=== PATIENT | male | born 1950 | race Caucasian/White ===

== ENCOUNTER 2017-04-16 15:58 | Inpatient (IN) | payer MEDICARE, BC ==
[2017-04-16] MEDS ORDERED: HYDROmorphone 0.5 MG/0.5 ML Syringe IVPUSH ONE ×2 (16:43→18:40)
[2017-04-16] MEDS ORDERED: Sodium Chloride 0.9% 1,000 ML IV SCH ×2 (16:45→18:30)
[2017-04-16] MEDS ORDERED: Ondansetron 4 MG/2 ML SDV IVPUSH ONE (16:56)
[2017-04-16] MEDS ORDERED: Ondansetron 4 MG/2 ML SDV ONE (16:57)
--- NOTE | 2017-04-16 17:01 | EDM.PDOC ---
ED HPI GENERAL MEDICAL PROBLEM - General Chief Complaint: Abdominal Pain Stated Complaint: RT SIDE ABDOMINAL PAIN Time Seen by Provider: 04/16/17 16:57 Source of Information: Reports: Patient, Family History Limitations: Reports: No Limitations - History of Present Illness INITIAL COMMENTS - FREE TEXT/NARRATIVE: Pt started getting ill yesterday and had some rt flank pain and mid abdomanal pain. The pain has moved to the rt lower abdomn today. He is nauseated but he has not vomited alot. Onset: Gradual, Other ( progressed over the past 2 days. ) Duration: Hour(s):, Getting Worse Location: Reports: Abdomen Associated Symptoms: Reports: Fever/Chills, Loss of Appetite, Nausea/Vomiting, Weakness Abdominal Pain Score (Numeric/FACES): 8 - Related Data Allergies Allergy/AdvReac Type Severity Reaction Status Date / Time No Known Allergies Allergy Verified 10/13/14 06:42 Home Meds: Home Meds Albuterol [Ventolin HFA] 2 puff INH Q4H PRN 10/09/14 [History] Aspirin [Adult Low Dose Aspirin EC] 81 mg PO DAILY 10/09/14 [History] Gabapentin [Neurontin] 1,200 mg PO BEDTIME 10/09/14 [History] Losartan [Cozaar] 25 mg PO BID 10/09/14 [History] Nitroglycerin [Nitrolingual [place]] 0.4 mg SL Q5M PRN 10/09/14 [History] Torsemide 20 mg PO DAILY 10/09/14 [History] atorvaSTATin Calcium [Atorvastatin Calcium] 20 mg PO DAILY 10/09/14 [History] glipiZIDE [Glucotrol] 5 mg PO BIDAC 10/09/14 [History] Apixaban [Eliquis] 5 mg PO BID 04/16/17 [History] Isosorbide Mononitrate [Imdur] 60 mg PO DAILY 04/16/17 [History] Meloxicam [Meloxicam] 15 mg PO DAILY 04/16/17 [History] Ranitidine [Zantac] 75 mg PO DAILY 04/16/17 [History] Sennosides 8.6 mg PO ASDIRECTED 04/16/17 [History] traMADol [Ultram] 50 mg PO Q6H PRN 04/16/17 [History] Past Medical History Cardiovascular History: Reports: Heart Failure Endocrine/Metabolic History: Reports: Diabetes, Type II - Past Surgical History Cardiovascular Surgical History: Reports: Other (See Below) Other Cardiovascular Surgeries/Procedures: quadrupal bipas 2010 Musculoskeletal Surgical History: Reports: Knee Replacement, Shoulder Replacement Social & Family History - Tobacco Use Smoking Status *Q: Never Smoker Years of Tobacco use: 30 Used Tobacco, but Quit: Yes Month Tobacco Last Used: nov - Caffeine Use Caffeine Use: Reports: Coffee - Alcohol Use Days Per Week of Alcohol Use: 7 Number of Drinks Per Day: 3 Total Drinks Per Week: 21 - Recreational Drug Use Recreational Drug Use: No ED ROS GENERAL - Review of Systems Review Of Systems: See Below Constitutional: Reports: Fever, Chills, Malaise, Decreased Appetite HEENT: Reports: No Symptoms Respiratory: Reports: No Symptoms Cardiovascular: Reports: No Symptoms Endocrine: Reports: No Symptoms GI/Abdominal: Reports: Abdominal Pain, Constipation : Reports: No Symptoms Musculoskeletal: Reports: No Symptoms Skin: Reports: No Symptoms ED EXAM, GI/ABD - Physical Exam Exam: See Below Text/Narrative:: pt arrived with severe rt lower and mid abdomanal pain. He states he felt constipated and did take 2 does of MOM. Exam Limited By: No Limitations General Appearance: Alert, Severe Distress Eyes: Bilateral: Normal Appearance, EOMI Ears: Normal TMs Nose: Normal Inspection Throat/Mouth: Normal Inspection Head: Atraumatic Neck: Normal Inspection Respiratory/Chest: No Respiratory Distress, Other (pt does hurt in the rt abdoman whn he takes a deep breath. ) Cardiovascular: Regular Rate, Rhythm GI/Abdominal: Other (pt has marked lower abdomanal pain He is guarded and has rebound., ) (Male) Exam: Normal Inspection Rectal (Males) Exam: Deferred Back Exam: Normal Inspection Extremities: Normal Inspection Neurological: Alert, Oriented, Normal Cognition Psychiatric: Normal Affect Course - Vital Signs Last Recorded V/S: Last Vital Signs Temp 36.8 C 04/16/17 16:40 Pulse 71 04/16/17 16:40 Resp 16 04/16/17 16:40 BP 160/86 H 04/16/17 16:40 Pulse Ox 99 04/16/17 16:40 - Orders/Labs/Meds Orders: Active Orders 24 hr Category Date Time Status EKG Documentation Completion [RC] ASDIRECTED Care 04/16/17 17:08 Active Abdomen Pelvis wo Cont [CT] Stat Exams 04/16/17 17:17 Taken Chest 1V Frontal [CR] Stat Exams 04/16/17 17:09 Taken UA W/MICROSCOPIC [URIN] Urgent Lab 04/16/17 16:42 Uncollected HYDROmorphone [Dilaudid] Med 04/16/17 18:40 Once 0.5 mg IVPUSH ONETIME ONE Sodium Chloride 0.9% [Normal Saline] 1,000 ml Med 04/16/17 16:45 Active IV ASDIRECTED Sodium Chloride 0.9% [Normal Saline] 1,000 ml Med 04/16/17 18:30 Active IV ASDIRECTED EKG 12 Lead [EK] Routine Ther 04/16/17 17:08 Ordered Medication Orders Hydromorphone HCl (Dilaudid) 0.5 mg IVPUSH ONETIME ONE Stop: 04/16/17 18:41 Sodium Chloride (Normal Saline) 1,000 mls @ 999 mls/hr IV ASDIRECTED JEFFERSON Last Admin: 04/16/17 16:55 Dose: 999 mls/hr Sodium Chloride (Normal Saline) 1,000 mls @ 999 mls/hr IV ASDIRECTED JEFFERSON Labs: Laboratory Tests 04/16/17 04/16/17 04/16/17 Range/Units 16:52 16:52 16:52 WBC 15.2 H (4.5-11.0) K/uL RBC 4.72 (4.30-5.90) M/uL Hgb 13.6 (12.0-15.0) g/dL Hct 40.4 (40.0-54.0) % MCV 86 (80-98) fL MCH 29 (27-31) pg MCHC 34 (32-36) % Plt Count 328 (150-400) K/uL Neut % (Auto) 85 H (36-66) % Lymph % (Auto) 3 L (24-44) % [place] % (Auto) 12 H (2-6) % Eos % (Auto) 0 L (2-4) % Baso % (Auto) 0 (0-1) % Sodium 132 L (140-148) mmol/L Potassium 5.0 (3.6-5.2) mmol/L Chloride 96 L (100-108) mmol/L Carbon Dioxide 26 (21-32) mmol/L Anion Gap 15.0 H (5.0-14.0) mmol/L BUN 28 H (7-18) mg/dL Creatinine 2.1 H (0.8-1.3) mg/dL Est Cr Clr Drug Dosing 41.32 mL/min Estimated GFR (MDRD) 32 L (>60) Glucose 241 H (74-106) mg/dL Calcium 9.3 (8.5-10.1) mg/dL Total Bilirubin 1.8 H (0.2-1.0) mg/dL AST 33 (15-37) U/L ALT 59 (12-78) U/L Alkaline Phosphatase 176 H (46-116) U/L C-Reactive Protein 13.47 H (0.0-0.3) mg/dL Total Protein 7.3 (6.4-8.2) g/dL Albumin 2.8 L (3.4-5.0) g/dL Globulin 4.5 H (2.3-3.5) g/dL Albumin/Globulin Ratio 0.6 L (1.2-2.2) Amylase (25-115) U/L Lipase (73-393) U/L 04/16/17 Range/Units 18:23 WBC (4.5-11.0) K/uL RBC (4.30-5.90) M/uL Hgb (12.0-15.0) g/dL Hct (40.0-54.0) % MCV (80-98) fL MCH (27-31) pg MCHC (32-36) % Plt Count (150-400) K/uL Neut % (Auto) (36-66) % Lymph % (Auto) (24-44) % [place] % (Auto) (2-6) % Eos % (Auto) (2-4) % Baso % (Auto) (0-1) % Sodium (140-148) mmol/L Potassium (3.6-5.2) mmol/L Chloride (100-108) mmol/L Carbon Dioxide (21-32) mmol/L Anion Gap (5.0-14.0) mmol/L BUN (7-18) mg/dL Creatinine (0.8-1.3) mg/dL Est Cr Clr Drug Dosing mL/min Estimated GFR (MDRD) (>60) Glucose (74-106) mg/dL Calcium (8.5-10.1) mg/dL Total Bilirubin (0.2-1.0) mg/dL AST (15-37) U/L ALT (12-78) U/L Alkaline Phosphatase (46-116) U/L C-Reactive Protein (0.0-0.3) mg/dL Total Protein (6.4-8.2) g/dL Albumin (3.4-5.0) g/dL Globulin (2.3-3.5) g/dL Albumin/Globulin Ratio (1.2-2.2) Amylase 49 (25-115) U/L Lipase 328 (73-393) U/L Meds: Medications Generic Name Dose Route Start Last Admin Trade Name Freq PRN Reason Stop Dose Admin Hydromorphone HCl 0.5 mg 04/16/17 18:40 Dilaudid IVPUSH 04/16/17 18:41 ONETIME ONE Sodium Chloride 1,000 mls @ 999 mls/hr 04/16/17 16:45 04/16/17 16:55 Normal Saline IV 999 mls/hr ASDIRECTED JEFFERSON Administration Sodium Chloride 1,000 mls @ 999 mls/hr 04/16/17 18:30 Normal Saline IV ASDIRECTED JEFFERSON Discontinued Medications Generic Name Dose Route Start Last Admin Trade Name Freq PRN Reason Stop Dose Admin Hydromorphone HCl 0.5 mg 04/16/17 16:43 04/16/17 16:53 Dilaudid IVPUSH 04/16/17 16:44 0.5 mg ONETIME ONE Administration Ondansetron HCl 4 mg 04/16/17 16:56 04/16/17 16:58 Zofran IVPUSH 04/16/17 16:57 4 mg ONETIME ONE Administration Ondansetron HCl Confirm 04/16/17 16:57 04/16/17 17:00 Zofran Administered 04/16/17 16:58 Not Given Dose 4 mg .ROUTE .STK-MED ONE - Re-Assessments/Exams Free Text/Narrative Re-Assessment/Exam: 04/16/17 18:27 cat scan showed a inflamed Gb. His lipase is normal. He has stones in the gb. His chest xray does not show a infiltrate. he has a crp of greater than 13. wbc is 15,000 04/16/17 18:41 Departure - Departure Time of Disposition: 18:42 Disposition: Admitted As Inpatient 68 Condition: fair Clinical Impression: Acute cholecystitis, Renal insufficiency, mild - Discharge Information Forms: ED Department Discharge Care Plan Goals: admit to Dr Lal, Dr Rascon to consult. - My Orders Last 24 Hours: My Active Orders 04/16/17 16:42 UA W/MICROSCOPIC [URIN] Urgent 04/16/17 16:45 Sodium Chloride 0.9% [Normal Saline] 1,000 ml IV ASDIRECTED 04/16/17 17:08 EKG Documentation Completion [RC] ASDIRECTED EKG 12 Lead [EK] Routine 04/16/17 17:09 Chest 1V Frontal [CR] Stat 04/16/17 17:17 Abdomen Pelvis wo Cont [CT] Stat 04/16/17 18:30 Sodium Chloride 0.9% [Normal Saline] 1,000 ml IV ASDIRECTED 04/16/17 18:40 HYDROmorphone [Dilaudid] 0.5 mg IVPUSH ONETIME ONE - Assessment/Plan Last 24 Hours: My Active Orders 04/16/17 16:42 UA W/MICROSCOPIC [URIN] Urgent 04/16/17 16:45 Sodium Chloride 0.9% [Normal Saline] 1,000 ml IV ASDIRECTED 04/16/17 17:08 EKG Documentation Completion [RC] ASDIRECTED EKG 12 Lead [EK] Routine 04/16/17 17:09 Chest 1V Frontal [CR] Stat 04/16/17 17:17 Abdomen Pelvis wo Cont [CT] Stat 04/16/17 18:30 Sodium Chloride 0.9% [Normal Saline] 1,000 ml IV ASDIRECTED 04/16/17 18:40 HYDROmorphone [Dilaudid] 0.5 mg IVPUSH ONETIME ONE
--- NOTE | 2017-04-16 19:25 | PCM.HP ---
H&P History of Present Illness - General Date of Service: 04/16/17 Admit Problem/Dx: Admission Diagnosis/Problem Admission Diagnosis/Problem Cholecystitis Source of Information: Patient, Family, Provider History Limitations: Reports: No Limitations - History of Present Illness Initial Comments - Free Text/Narative: Leandro presents to the emergency room today with 2 days of progressive right upper quadrant and right lower cord current abdominal pain. Pain started yesterday without inciting incident and progressed throughout the day. He had very poor sleep due to the pain. He describes this as sharp pain that radiates throughout right side of his abdomen. It was moderately severe at its worst last night. Tramadol did not help the pain. Moving around seem to make it worse. When he woke up this morning his pain was very minimal and he was able to a few crackers and a little bit of lunch. Around 2 PM the day of admission his pain became suddenly very severe. He had some associated nausea but no vomiting. No obvious fevers or chills at home. He was evaluated in the clinic and sent to the emergency room for further evaluation. He's had mild diarrhea for the past couple of days. Appetite has been decreased the past 2 weeks following his knee surgery but more so the past 2 days. Prior to his knee surgery a few weeks ago his functional status was excellent with no chest pain or shortness of breath on exertion. Workup in the emergency room revealed leukocytosis, significant CRP elevation and probable acute cholecystitis based on CT scanning. He'll be admitted for further management. Abdominal Pain Score (Numeric/FACES): 8 - Related Data Allergies/Adverse Reactions: Allergies Allergy/AdvReac Type Severity Reaction Status Date / Time No Known Allergies Allergy Verified 10/13/14 06:42 Home Medications: Home Meds Albuterol [Ventolin HFA] 2 puff INH Q4H PRN 10/09/14 [History] Aspirin [Adult Low Dose Aspirin EC] 81 mg PO DAILY 10/09/14 [History] Gabapentin [Neurontin] 1,200 mg PO BEDTIME 10/09/14 [History] Losartan [Cozaar] 25 mg PO BID 10/09/14 [History] Nitroglycerin [Nitrolingual [place]] 0.4 mg SL Q5M PRN 10/09/14 [History] Torsemide 20 mg PO DAILY 10/09/14 [History] atorvaSTATin Calcium [Atorvastatin Calcium] 20 mg PO DAILY 10/09/14 [History] glipiZIDE [Glucotrol] 5 mg PO BIDAC 10/09/14 [History] Apixaban [Eliquis] 5 mg PO BID 04/16/17 [History] Isosorbide Mononitrate [Imdur] 60 mg PO DAILY 04/16/17 [History] Meloxicam [Meloxicam] 15 mg PO DAILY 04/16/17 [History] Ranitidine [Zantac] 75 mg PO DAILY 04/16/17 [History] Sennosides 8.6 mg PO ASDIRECTED 04/16/17 [History] traMADol [Ultram] 50 mg PO Q6H PRN 04/16/17 [History] Past Medical History Cardiovascular History: Reports: Heart Failure Endocrine/Metabolic History: Reports: Diabetes, Type II - Past Surgical History Cardiovascular Surgical History: Reports: Other (See Below) Other Cardiovascular Surgeries/Procedures: quadrupal bipas 2009 Musculoskeletal Surgical History: Reports: Knee Replacement, Shoulder Replacement Social & Family History - Family History GI: Reports: Other (See Below) (A couple family members with cholecystitis and cholecystectomy) - Tobacco Use Smoking Status *Q: Never Smoker Years of Tobacco use: 30 Used Tobacco, but Quit: Yes Month Tobacco Last Used: nov - Caffeine Use Caffeine Use: Reports: Coffee - Alcohol Use Days Per Week of Alcohol Use: 7 Number of Drinks Per Day: 3 Total Drinks Per Week: 21 - Recreational Drug Use Recreational Drug Use: No H&P Review of Systems - Review of Systems: Review Of Systems: See Below Free Text/Narrative: A complete 12 point review of systems was obtained. Pertinent positives and negatives are noted in the history of present illness. All other systems were reviewed and were negative except as noted. Exam - Exam Exam: See Below - Vital Signs Vital Signs: Last Vital Signs Temp 37.1 C 04/16/17 19:13 Pulse 78 04/16/17 19:13 Resp 14 04/16/17 19:13 BP 143/62 H 04/16/17 19:13 Pulse Ox 98 04/16/17 19:13 Weight: 99.79 kg - Exam Quality Assessment: No: Supplemental Oxygen General: Alert, Oriented, Cooperative, Mild Distress HEENT: Conjunctiva Clear. No: Mucosa Moist & [place] (dry), Scleral Icterus Neck: Supple, Trachea Midline. No: Lymphadenopathy Lungs: Clear to Auscultation, Normal Respiratory Effort Cardiovascular: Regular Rate, Regular Rhythm, Systolic Murmur (Soft left lower sternal border) Abdomen: Normal Bowel Sounds (On the left side), Guarding, Tenderness ( Moderately severe tenderness right upper quadrant), Hypoactive Bowel Sounds (On the right side), Noble's Sign. No: Distention Back Exam: Normal Inspection, Full Range of Motion Extremities: Normal Inspection, Normal Pulses. No: Cyanosis, Edema Peripheral Pulses: 2+: Dorsalis Pedis (L), Dorsalis Pedis (R) Skin: Warm, Dry, Intact Neuro Extensive - Mental Status: Alert, Oriented x3, Nl Response to Commands Neuro Extensive - Motor, Sensory, Reflexes: CN II-XII Intact. No: Dysarthria, Abnormal Motor, Tremor Psychiatric: Alert, Normal Affect - Patient Data Lab Results last 24 hrs: Laboratory Results - last 24 hr 04/16/17 04/16/17 04/16/17 Range/Units 16:52 16:52 16:52 WBC 15.2 H (4.5-11.0) K/uL RBC 4.72 (4.30-5.90) M/uL Hgb 13.6 (12.0-15.0) g/dL Hct 40.4 (40.0-54.0) % MCV 86 (80-98) fL MCH 29 (27-31) pg MCHC 34 (32-36) % Plt Count 328 (150-400) K/uL Neut % (Auto) 85 H (36-66) % Lymph % (Auto) 3 L (24-44) % [place] % (Auto) 12 H (2-6) % Eos % (Auto) 0 L (2-4) % Baso % (Auto) 0 (0-1) % Sodium 132 L (140-148) mmol/L Potassium 5.0 (3.6-5.2) mmol/L Chloride 96 L (100-108) mmol/L Carbon Dioxide 26 (21-32) mmol/L Anion Gap 15.0 H (5.0-14.0) mmol/L BUN 28 H (7-18) mg/dL Creatinine 2.1 H (0.8-1.3) mg/dL Est Cr Clr Drug Dosing 41.32 mL/min Estimated GFR (MDRD) 32 L (>60) Glucose 241 H (74-106) mg/dL Calcium 9.3 (8.5-10.1) mg/dL Total Bilirubin 1.8 H (0.2-1.0) mg/dL AST 33 (15-37) U/L ALT 59 (12-78) U/L Alkaline Phosphatase 176 H (46-116) U/L C-Reactive Protein 13.47 H (0.0-0.3) mg/dL Total Protein 7.3 (6.4-8.2) g/dL Albumin 2.8 L (3.4-5.0) g/dL Globulin 4.5 H (2.3-3.5) g/dL Albumin/Globulin Ratio 0.6 L (1.2-2.2) Amylase (25-115) U/L Lipase (73-393) U/L 04/16/17 Range/Units 18:23 WBC (4.5-11.0) K/uL RBC (4.30-5.90) M/uL Hgb (12.0-15.0) g/dL Hct (40.0-54.0) % MCV (80-98) fL MCH (27-31) pg MCHC (32-36) % Plt Count (150-400) K/uL Neut % (Auto) (36-66) % Lymph % (Auto) (24-44) % [place] % (Auto) (2-6) % Eos % (Auto) (2-4) % Baso % (Auto) (0-1) % Sodium (140-148) mmol/L Potassium (3.6-5.2) mmol/L Chloride (100-108) mmol/L Carbon Dioxide (21-32) mmol/L Anion Gap (5.0-14.0) mmol/L BUN (7-18) mg/dL Creatinine (0.8-1.3) mg/dL Est Cr Clr Drug Dosing mL/min Estimated GFR (MDRD) (>60) Glucose (74-106) mg/dL Calcium (8.5-10.1) mg/dL Total Bilirubin (0.2-1.0) mg/dL AST (15-37) U/L ALT (12-78) U/L Alkaline Phosphatase (46-116) U/L C-Reactive Protein (0.0-0.3) mg/dL Total Protein (6.4-8.2) g/dL Albumin (3.4-5.0) g/dL Globulin (2.3-3.5) g/dL Albumin/Globulin Ratio (1.2-2.2) Amylase 49 (25-115) U/L Lipase 328 (73-393) U/L Result Diagrams: 04/16/17 16:52 04/16/17 16:52 Imaging Impressions last 24 hrs: CT scan of the abdomen and pelvis - images personally reviewed - there is inflammation around the gallbladder fossa. He has several calcified stones inside his gallbladder. Gallbladder wall does not appear thickened this time. EKG INTERPRETATION EKG Date: 04/16/17 Rhythm: NSR Rate (beats/min): 73 [place]: normal P-wave: present QRS: normal ST-T: normal QT: normal *Q Meaningful Use (ADM) - VTE *Q VTE Criteria *Q: VTE Pharmacological Contraindications *Q: Patient Scheduled Surgery - VTE Risk Assess *Q Each Risk Factor Represents 1 Point: None Total Score 1 Point Risk Factors: 0 Each Risk Factor Represents 2 Points: Age 60 - 74 Years, Surgery: Major, Arthroscopic and/or Laparoscopic, Greater than 60 Min Total Score 2 Point Risk Factors: 4 Each Risk Factor Represents 3 Points: None Total Score 3 Point Risk Factors: 0 Each Risk Factor Represents 5 Points: None Total Score 5 Point Risk Factors: 0 Venous Thromboembolism Risk Factor Score *Q: 4 - Stroke *Q Stroke Criteria *Q: - AMI *Q AMI Criteria *Q: - Problem List (1) Acute cholecystitis SNOMED Code(s): 54392519 ICD Code: K81.0 - ACUTE CHOLECYSTITIS Status: Acute Current Visit: Yes (2) Acute kidney injury SNOMED Code(s): 31893753 ICD Code: N17.9 - ACUTE KIDNEY FAILURE, UNSPECIFIED Status: Acute Current Visit: Yes (3) Coronary artery disease SNOMED Code(s): 60667798 ICD Code: I25.10 - ATHSCL HEART DISEASE OF [place] CORONARY ARTERY W/O ANG PCTRS Status: Chronic Current Visit: Yes Qualifiers: Coronary Disease-Associated Artery/Lesion type: [place] artery [place] vs. transplanted heart: [place] heart Associated angina: without angina Qualified Code(s): I25.10 - Atherosclerotic heart disease of [place] coronary artery without angina pectoris (4) Paroxysmal atrial fibrillation SNOMED Code(s): 739598052 ICD Code: I48.0 - PAROXYSMAL ATRIAL FIBRILLATION Status: Chronic Current Visit: Yes Problem List Initiated/Reviewed/Updated: Yes Orders Last 24hrs: Active Orders 24 hr Category Date Time Status Patient Status Manage Transfer [TRANSFER] Routine ADT 04/16/17 19:12 Ordered EKG Documentation Completion [RC] ASDIRECTED Care 04/16/17 17:08 Active Abdomen Pelvis wo Cont [CT] Stat Exams 04/16/17 17:17 Taken Chest 1V Frontal [CR] Stat Exams 04/16/17 17:09 Taken UA W/MICROSCOPIC [URIN] Urgent Lab 04/16/17 16:42 Uncollected Piperacillin/Tazobactam [Zosyn] 3.375 gm Med 04/16/17 20:00 Active Sodium Chloride 0.9% [Normal Saline] 50 ml IV Q6H Sodium Chloride 0.9% [Normal Saline] 1,000 ml Med 04/16/17 16:45 Active IV ASDIRECTED Sodium Chloride 0.9% [Normal Saline] 1,000 ml Med 04/16/17 18:30 Active IV ASDIRECTED Resuscitation Status Routine Resus Stat 04/16/17 19:13 Ordered EKG 12 Lead [EK] Routine Ther 04/16/17 17:08 Ordered Medication Orders Sodium Chloride (Normal Saline) 1,000 mls @ 999 mls/hr IV ASDIRECTED JEFFERSON Last Admin: 04/16/17 16:55 Dose: 999 mls/hr Sodium Chloride (Normal Saline) 1,000 mls @ 999 mls/hr IV ASDIRECTED JEFFERSON Piperacillin Sod/Tazobactam (Sod 3.375 gm/ Sodium Chloride) 50 mls @ 100 mls/ hr IV Q6H JEFFERSON Assessment/Plan Comment:: Assessment and plan - Acute cholecystitis - suspected diagnosis with acute right upper cord for pain and inflammation around the gallbladder. Mild abnormalities of the hepatic panel blood tests. Significant pain, dehydration and not safe for outpatient management. He does not appear septic at this time. He is in optimal achievable medical condition for this potential urgent surgery. Currently taking apixaban, last dose this morning. -Hold apixaban -IV fluids -Empiric Pip/Tazo -Pain control with CORRECTIONAL COUNSELOR/CASE MANAGER -Anti-emetics -Surgical consultation with Dr. Rascon Acute kidney injury - probably secondary to infection as above. -IV fluids and repeat labs in the morning Coronary artery disease - status post four-vessel CABG in 2009. No recent symptoms or decline in functional status. -Continue home medications Paroxysmal atrial fibrillation - currently in sinus rhythm. He has chronically anticoagulated with apixaban. -Hold anticoagulation Maintenance issues - - DVT prophylaxis - mechanical - GI prophylaxis - PPI - Nutrition - n.p.o. - [place] catheter - not indicated CODE STATUS - full code Admission justification - This patient will be admitted for inpatient services and is medically appropriate meeting medical necessity for inpatient admission as outlined in my documentation. I reasonably expect the patient will require inpatient services that span a period time over 2 midnights. I reasonably expect this patient to be discharged or transferred within 96 hours [facility]. Disposition - I anticipate discharge to home after the hospital stay Victoriano Lal M.D.
[2017-04-16] MEDS ORDERED: Polyethylene Glycol 3350 Powder 17 GM Packet PO PRN (20:04)
[2017-04-16] MEDS ORDERED: Ondansetron 4 MG/2 ML SDV IV PRN (20:04)
[2017-04-16] MEDS ORDERED: HYDROmorphone/Normal Saline 15 MG/30 ML PCA IV PRN (20:04)
[2017-04-16] MEDS ORDERED: Acetaminophen 325 MG Tab PO PRN (20:04)
[2017-04-16] MEDS ORDERED: Ondansetron 4 MG Tab.DIS PO PRN (20:04)
[2017-04-16] MEDS ORDERED: Albuterol 0.083% 2.5 MG/3 ML Neb Soln NEB PRN (20:04)
[2017-04-16] MEDS ORDERED: LORazepam 2 MG/ML MDV IVPUSH PRN (20:04)
[2017-04-16] MEDS ORDERED: Naloxone 0.4 MG/ML SDV IVPUSH PRN (20:04)
[2017-04-16] MEDS: Piperacillin/Tazobactam 3.375 GM in Sodium Chloride 0.9% 50 ML IV SCH (20:09)
[2017-04-16] MEDS: Losartan 50 MG Tab PO SCH (21:08)
[2017-04-16] MEDS: Pantoprazole 40 MG Vial IVPUSH SCH (21:08)
[2017-04-16] MEDS: Gabapentin 400 MG Cap PO SCH (21:08)
[2017-04-16] MEDS: Insulin Aspart 100 Units/ML 3 ML Pen SUBCUT SCH (21:21)
[2017-04-16] MEDS: Sodium Chloride 0.9% 1,000 ML IV SCH (22:20)
[2017-04-17] MEDS: Piperacillin/Tazobactam 3.375 GM in Sodium Chloride 0.9% 50 ML IV SCH (02:47)
[2017-04-17] MEDS: Sodium Chloride 0.9% 1,000 ML IV SCH (06:47)
--- NOTE | 2017-04-17 07:22 | PCM.SURGPN ---
<Alphonso Rascon - Last Filed: 04/18/17 07:39> - Review of Systems General: Reports: Fever Pulmonary: Reports: no symptoms Cardiovascular: Reports: No Symptoms Gastrointestinal: Reports: Abdominal pain, Nausea, Vomiting Skin: Reports: no symptoms - Patient Data Vitals - most recent: Last Vital Signs Temp 96.7 F 04/18/17 02:49 Pulse 75 04/18/17 02:49 Resp 18 04/18/17 02:49 BP 150/78 H 04/18/17 02:49 Pulse Ox 97 04/18/17 02:49 I&O - last 24 hours: Intake & Output 04/17/17 04/18/17 04/18/17 22:59 06:59 14:59 Intake Total 2310 2857 Output Total 807 975 Balance 1503 1882 Lab Results last 24 hrs: Laboratory Results - last 24 hr 04/18/17 04/18/17 Range/Units 04:20 04:20 WBC 9.1 (4.5-11.0) K/uL RBC 3.12 L (4.30-5.90) M/uL Hgb 8.9 L D (12.0-15.0) g/dL Hct 27.8 L (40.0-54.0) % MCV 89 (80-98) fL MCH 29 (27-31) pg MCHC 32 (32-36) % Plt Count 192 (150-400) K/uL Neut % (Auto) 89 H (36-66) % Lymph % (Auto) 3 L (24-44) % [place] % (Auto) 8 H (2-6) % Eos % (Auto) 0 L (2-4) % Baso % (Auto) 0 (0-1) % Sodium 133 L (140-148) mmol/L Potassium 5.3 H (3.6-5.2) mmol/L Chloride 103 (100-108) mmol/L Carbon Dioxide 22 (21-32) mmol/L Anion Gap 13.3 (5.0-14.0) mmol/L BUN 28 H (7-18) mg/dL Creatinine 2.1 H (0.8-1.3) mg/dL Est Cr Clr Drug Dosing 41.33 mL/min Estimated GFR (MDRD) 32 L (>60) Glucose 362 H (74-106) mg/dL Calcium 7.9 L (8.5-10.1) mg/dL Phosphorus 3.9 (2.5-4.9) mg/dL Magnesium 1.9 (1.8-2.4) mg/dL Total Bilirubin 0.9 (0.2-1.0) mg/dL AST 73 H D (15-37) U/L ALT 56 (12-78) U/L Alkaline Phosphatase 103 (46-116) U/L [id number] Pept 5465 H (5-125) pg/mL Total Protein 4.9 L (6.4-8.2) g/dL Albumin 1.6 L (3.4-5.0) g/dL Globulin 3.3 (2.3-3.5) g/dL Albumin/Globulin Ratio 0.5 L (1.2-2.2) Tono Results last 24 hrs: Microbiology 04/17/17 12:14 Gram Stain - Final Other - Abscess 04/17/17 12:14 Gram Stain - Final Other - Abscess Med Orders - Current: Current Medications Acetaminophen (Tylenol) 650 mg PO Q4H PRN PRN Reason: Pain (Mild 1-3)/fever Albuterol (Proventil Neb Soln) 2.5 mg NEB Q4H PRN PRN Reason: Shortness Of Breath/wheezing Aspirin (Halfprin) 81 mg PO DAILY [facility] Last Admin: 04/17/17 08:38 Dose: Not Given Atorvastatin Calcium (Lipitor) 20 mg PO BEDTIME [facility] Last Admin: 04/17/17 20:14 Dose: 20 mg Gabapentin (Neurontin) 1,200 mg PO BEDTIME [facility] Last Admin: 04/17/17 20:00 Dose: 1,200 mg Hydromorphone HCl (Dilaudid Livestock Nutritionist 15 Mg In Ns 30 Ml) 0 mg IV ASDIRECTED PRN; Protocol PRN Reason: BOATSWAINS MATE PAIN CONTROL Piperacillin/Tazobactam/ (Dextrose 3.375 gm/ Premix) 50 mls @ 100 mls/hr IV Q6H [facility] Last Admin: 04/18/17 01:02 Dose: 100 mls/hr Dextrose/Lactated Ringer's (Dextrose 5%-Lactated Ringers) 1,000 mls @ 150 mls/ hr IV ASDIRECTED [facility] Last Admin: 04/18/17 01:02 Dose: 150 mls/hr Aztreonam/Dextrose 1 gm/ (Premix) 50 mls @ 100 mls/hr IV Q8H [facility] Last Admin: 04/18/17 02:06 Dose: 100 mls/hr Insulin Aspart (Novolog) 0 unit SUBCUT ASDIRECTED [facility] PRN Reason: Protocol Last Admin: 04/17/17 21:29 Dose: 4 unit Isosorbide Mononitrate (Imdur) 60 mg PO DAILY [facility] Last Admin: 04/17/17 08:37 Dose: 60 mg Lorazepam (Ativan) 0.5 - 1 mg IVPUSH Q4H PRN PRN Reason: Nausea/Vomiting Last Admin: 04/17/17 08:30 Dose: 1 mg Losartan Potassium (Cozaar) 25 mg PO BID [facility] Last Admin: 04/17/17 20:03 Dose: 25 mg Naloxone HCl (Narcan) 0.1 mg IV ASDIRECTED PRN PRN Reason: decreased respiratory rate Ondansetron HCl (Zofran Odt) 4 mg PO Q6H PRN PRN Reason: Nausea able to take PO Ondansetron HCl (Zofran) 4 mg IV Q6H PRN PRN Reason: Nausea/Vomiting Pantoprazole Sodium (Protonix Iv) 40 mg IVPUSH Q24H [facility] Last Admin: 04/17/17 20:00 Dose: 40 mg Polyethylene Glycol (Miralax) 17 gm PO DAILY PRN PRN Reason: Constipation Senna/Docusate Sodium (Senna Plus) 1 tab PO BID PRN PRN Reason: Constipation Discontinued Medications Atorvastatin Calcium (Lipitor) 20 mg PO DAILY [facility] Last Admin: 04/17/17 08:39 Dose: Not Given Bupivacaine HCl/Epinephrine Bitart (Marcaine 0.5%/Epinephrine 1:200,000) Confirm Administered Dose 50 ml .ROUTE .STK-MED ONE Stop: 04/17/17 10:03 Last Admin: 04/17/17 11:47 Dose: 16 ml Dexamethasone (Dexamethasone) Confirm Administered Dose 4 mg .ROUTE .STK-MED ONE Stop: 04/17/17 09:37 Fentanyl (Sublimaze) Confirm Administered Dose 250 mcg .ROUTE .STK-MED ONE Stop: 04/17/17 09:37 Fentanyl (Sublimaze) Confirm Administered Dose 100 mcg .ROUTE .STK-MED ONE Stop: 04/17/17 11:29 Glycopyrrolate () Confirm Administered Dose 1 mg .ROUTE .STK-MED ONE Stop: 04/17/17 09:37 Hydromorphone HCl (Dilaudid) 0.5 mg IVPUSH ONETIME ONE Stop: 04/16/17 16:44 Last Admin: 04/16/17 16:53 Dose: 0.5 mg Hydromorphone HCl (Dilaudid) 0.5 mg IVPUSH ONETIME ONE Stop: 04/16/17 18:41 Last Admin: 04/16/17 19:08 Dose: 0.5 mg Hydromorphone HCl (Dilaudid Livestock Nutritionist 15 Mg In Ns 30 Ml) 0 mg IV ASDIRECTED PRN; Protocol PRN Reason: Pain Last Admin: 04/16/17 20:41 Dose: 15 mg Sodium Chloride (Normal Saline) 1,000 mls @ 999 mls/hr IV ASDIRECTED [facility] Last Admin: 04/16/17 16:55 Dose: 999 mls/hr Sodium Chloride (Normal Saline) 1,000 mls @ 999 mls/hr IV ASDIRECTED [facility] Last Admin: 04/16/17 19:22 Dose: 999 mls/hr Piperacillin Sod/Tazobactam (Sod 3.375 gm/ Sodium Chloride) 50 mls @ 100 mls/ hr IV Q6H [facility] Last Admin: 04/17/17 02:47 Dose: 100 mls/hr Sodium Chloride (Normal Saline) 1,000 mls @ 125 mls/hr IV ASDIRECTED [facility] Last Admin: 04/17/17 06:47 Dose: 125 mls/hr Dextrose/Lactated Ringer's (Dextrose 5%-Lactated Ringers) 1,000 mls @ 125 mls/ hr IV ASDIRECTED [facility] Last Admin: 04/17/17 09:57 Dose: 125 mls/hr Aztreonam/Dextrose 1 gm/ (Premix) 50 mls @ 100 mls/hr IV ONCALL ONE Stop: 04/17/17 12:29 Last Admin: 04/17/17 13:58 Dose: Not Given Sodium Chloride (Normal Saline) Confirm Administered Dose 10 mls @ as directed .ROUTE .STK-MED ONE Stop: 04/17/17 11:07 Sodium Chloride (Normal Saline) 500 mls @ 500 mls/hr IV .BOLUS ONE Stop: 04/17/17 20:13 Last Admin: 04/17/17 19:19 Dose: 500 mls/hr Lidocaine HCl (Xylocaine 2% Jelly) 10 ml MUCMEM ONETIME ONE Stop: 04/17/17 19:31 Last Admin: 04/17/17 19:52 Dose: 10 ml Meropenem (Merrem) Confirm Administered Dose 500 mg .ROUTE .STK-MED ONE Stop: 04/17/17 11:07 Last Admin: 04/17/17 11:13 Dose: 500 mg Naloxone HCl (Narcan) 0.4 mg IVPUSH Q2M PRN PRN Reason: Respiratory Distress Neostigmine Methylsulfate (Neostigmine) Confirm Administered Dose 5 mg .ROUTE .STK-MED ONE Stop: 04/17/17 09:37 Ondansetron HCl (Zofran) 4 mg IVPUSH ONETIME ONE Stop: 04/16/17 16:57 Last Admin: 04/16/17 16:58 Dose: 4 mg Ondansetron HCl (Zofran) Confirm Administered Dose 4 mg .ROUTE .STK-MED ONE Stop: 04/16/17 16:58 Last Admin: 04/16/17 17:00 Dose: Not Given Ondansetron HCl (Zofran) Confirm Administered Dose 4 mg .ROUTE .STK-MED ONE Stop: 04/17/17 09:37 Propofol (Diprivan 20 Ml) Confirm Administered Dose 200 mg .ROUTE .STK-MED ONE Stop: 04/17/17 09:37 Rocuronium [place] (Zemuron) Confirm Administered Dose 50 mg .ROUTE .STK-MED ONE Stop: 04/17/17 09:37 Scopolamine (Transderm-Scop) Confirm Administered Dose 1.5 mg .ROUTE .STK-MED ONE Stop: 04/17/17 10:28 Succinylcholine Chloride (Succinylcholine In Ns Pf) Confirm Administered Dose 200 mg .ROUTE .STK-MED ONE Stop: 04/17/17 09:37 - Exam General: alert, oriented, cooperative HEENT: Pupils equal, Pupils reactive, EOMI, Mucous membr. moist/pink Neck: supple Lungs: Clear to auscultation, Normal respiratory effort Cardiovascular: Regular Rate, Regular Rhythm Abdomen: bowel sounds present, soft, no tenderness Extremities: no edema Skin: warm, dry, intact Psy/Mental Status: alert, normal affect, normal mood - Problem List Review Problem List Initiated/Reviewed/Updated: Yes - My Orders Last 24 Hours: Active Orders 24 hr Category Date Time Status Bladder Scan [RC] ONETIME Care 04/17/17 18:53 Active IS (RT) [RT Incentive Spirometry] [RC] Q1HMA Care 04/17/17 14:32 Active Overnight Pulse Oximetry [RC] Click To Edit Care 04/17/17 14:31 Active Turn, Cough, Deep Breathe [RC] Q1HWA Care 04/17/17 14:31 Active Urinary Catheter Assessment [RC] ASDIRECTED Care 04/17/17 19:15 Active Urinary Catheter Insertion [Insert Urinary Catheter] [ Care 04/17/17 19:15 Ordered OM.PC] Q24H Clear Liquid Diet [DIET] Diet 04/17/17 Dinner Active CULTURE ANAEROBIC [RM] Routine Lab 04/17/17 12:14 Received CULTURE ANAEROBIC [RM] Routine Lab 04/17/17 12:14 Received CULTURE WOUND + SMEAR [RM] Routine Lab 04/17/17 12:14 Results CULTURE WOUND + SMEAR [RM] Routine Lab 04/17/17 12:14 Results GLUCOSE POC LAB TO COLLECT [POC] QIDACANDBED Lab 04/18/17 07:30 Ordered GLUCOSE POC LAB TO COLLECT [POC] QIDACANDBED Lab 04/18/17 11:30 Ordered GLUCOSE POC LAB TO COLLECT [POC] QIDACANDBED Lab 04/18/17 16:30 Ordered GLUCOSE POC LAB TO COLLECT [POC] QIDACANDBED Lab 04/18/17 21:00 Ordered GLUCOSE POC LAB TO COLLECT [POC] QIDACANDBED Lab 04/19/17 07:30 Ordered GLUCOSE POC LAB TO COLLECT [POC] QIDACANDBED Lab 04/19/17 11:30 Ordered GLUCOSE POC LAB TO COLLECT [POC] QIDACANDBED Lab 04/19/17 16:30 Ordered GLUCOSE POC LAB TO COLLECT [POC] QIDACANDBED Lab 04/19/17 21:00 Ordered GLUCOSE POC LAB TO COLLECT [POC] QIDACANDBED Lab 04/20/17 07:30 Ordered GLUCOSE POC LAB TO COLLECT [POC] QIDACANDBED Lab 04/20/17 11:30 Ordered GLUCOSE POC LAB TO COLLECT [POC] QIDACANDBED Lab 04/20/17 16:30 Ordered GLUCOSE POC LAB TO COLLECT [POC] QIDACANDBED Lab 04/20/17 21:00 Ordered GLUCOSE POC LAB TO COLLECT [POC] QIDACANDBED Lab 04/21/17 07:30 Ordered GLUCOSE POC LAB TO COLLECT [POC] QIDACANDBED Lab 04/21/17 11:30 Ordered GLUCOSE POC LAB TO COLLECT [POC] QIDACANDBED Lab 04/21/17 16:30 Ordered GLUCOSE POC LAB TO COLLECT [POC] QIDACANDBED Lab 04/21/17 21:00 Ordered GLUCOSE POC LAB TO COLLECT [POC] QIDACANDBED Lab 04/22/17 07:30 Ordered Aztreonam/Dextrose-Water [Azactam in Dextrose,Iso- Med 04/17/17 18:00 Active Osmotic 1 GM/50 ML] 1 gm Premix Bag 1 bag IV Q8H Dextrose 5%-Lactated Ringers 1,000 ml Med 04/17/17 13:15 Active IV ASDIRECTED HYDROmorphone/Normal Saline [Dilaudid BOATSWAINS MATE 15 MG in NS Med 04/17/17 13:20 Active 30 ML] 0 mg IV ASDIRECTED PRN Naloxone [Narcan] Med 04/17/17 13:20 Active 0.1 mg IV ASDIRECTED PRN Piperacillin/Tazobactam/Dext [Zosyn in Dextrose Iso- Med 04/17/17 08:00 Active Osmotic 3.375 GM] 3.375 gm Premix Bag 1 bag IV Q6H atorvaSTATin [Lipitor] Med 04/17/17 21:00 Active 20 mg PO BEDTIME Pulse Oximetry Continuous Monitoring [OM.PC] Routine Oth 04/17/17 14:31 Ordered Medication Orders Acetaminophen (Tylenol) 650 mg PO Q4H PRN PRN Reason: Pain (Mild 1-3)/fever Albuterol (Proventil Neb Soln) 2.5 mg NEB Q4H PRN PRN Reason: Shortness Of Breath/wheezing Aspirin (Halfprin) 81 mg PO DAILY [facility] Last Admin: 04/17/17 08:38 Dose: Atorvastatin Calcium (Lipitor) 20 mg PO BEDTIME [place] Last Admin: 04/17/17 20:14 Dose: 20 mg Gabapentin (Neurontin) 1,200 mg PO BEDTIME [facility] Last Admin: 04/17/17 20:00 Dose: 1,200 mg Admin: 04/16/17 21:08 Dose: 1,200 mg Hydromorphone HCl (Dilaudid Livestock Nutritionist 15 Mg In Ns 30 Ml) 0 mg IV ASDIRECTED PRN; Protocol PRN Reason: BOATSWAINS MATE PAIN CONTROL Piperacillin/Tazobactam/ (Dextrose 3.375 gm/ Premix) 50 mls @ 100 mls/hr IV Q6H [facility] Last Admin: 04/18/17 01:02 Dose: 100 mls/hr Admin: 04/17/17 20:04 Dose: 100 mls/hr Admin: 04/17/17 14:54 Dose: 100 mls/hr Admin: 04/17/17 08:34 Dose: 100 mls/hr Dextrose/Lactated Ringer's (Dextrose 5%-Lactated Ringers) 1,000 mls @ 150 mls/ hr IV ASDIRECTED [facility] Last Admin: 04/18/17 01:02 Dose: 150 mls/hr Infusion: 04/18/17 01:01 Dose: 150 mls/hr Admin: 04/17/17 18:20 Dose: 150 mls/hr Aztreonam/Dextrose 1 gm/ (Premix) 50 mls @ 100 mls/hr IV Q8H [facility] Last Admin: 04/18/17 02:06 Dose: 100 mls/hr Infusion: 04/17/17 19:00 Dose: 100 mls/hr Admin: 04/17/17 18:30 Dose: 100 mls/hr Insulin Aspart (Novolog) 0 unit SUBCUT ASDIRECTED [facility] PRN Reason: Protocol Last Admin: 04/17/17 21:29 Dose: 4 unit Admin: 04/17/17 18:12 Dose: 4 unit Admin: 04/17/17 15:28 Dose: 3 unit Admin: 04/16/17 21:21 Dose: 1 unit Isosorbide Mononitrate (Imdur) 60 mg PO DAILY [facility] Last Admin: 04/17/17 08:37 Dose: 60 mg Lorazepam (Ativan) 0.5 - 1 mg IVPUSH Q4H PRN PRN Reason: Nausea/Vomiting Last Admin: 04/17/17 08:30 Dose: 1 mg Losartan Potassium (Cozaar) 25 mg PO BID [facility] Last Admin: 04/17/17 20:03 Dose: 25 mg Admin: 04/17/17 08:36 Dose: 25 mg Admin: 04/16/17 21:08 Dose: 25 mg Naloxone HCl (Narcan) 0.1 mg IV ASDIRECTED PRN PRN Reason: decreased respiratory rate Ondansetron HCl (Zofran Odt) 4 mg PO Q6H PRN PRN Reason: Nausea able to take PO Ondansetron HCl (Zofran) 4 mg IV Q6H PRN PRN Reason: Nausea/Vomiting Pantoprazole Sodium (Protonix Iv) 40 mg IVPUSH Q24H [facility] Last Admin: 04/17/17 20:00 Dose: 40 mg Admin: 04/16/17 21:08 Dose: 40 mg Polyethylene Glycol (Miralax) 17 gm PO DAILY PRN PRN Reason: Constipation Senna/Docusate Sodium (Senna Plus) 1 tab PO BID PRN PRN Reason: Constipation <Rimma Gutierrez R - Last Filed: 04/18/17 08:12> - General Info Date of Service: 04/17/17 Date of Surgery/Procedure: 04/17/17 (work in later this afternoon) Admission Diagnosis/Problem: Abdominal pain (RUQ pain & N/V) Functional Status: Reports: pain controlled, other (Patient reports 3 days of RUQ pain with associated nausea and vomiting. He has a low grade fever at 100.9. His pain and nausea has been controlled overnight here with IV Dilaudid and Zofran. His WBC count was 15.2. He was started on Zosyn last evening at 100mL/hr. His BPs ranging from 153-170. Intake 3054 mL.) - Review of Systems General: Reports: Fever Pulmonary: Reports: no symptoms Cardiovascular: Reports: No Symptoms Gastrointestinal: Reports: Abdominal pain, Nausea, Vomiting Skin: Reports: no symptoms Systems Review Comment:: Patient reports 3 days of RUQ pain with associated nausea and vomiting. He has a low grade fever at 100.9. His pain and nausea has been controlled overnight here with IV Dilaudid and Zofran. His WBC count was 15.2. He was started on Zosyn last evening at 100mL/hr. His BPs ranging from 153-170. Intake 3054 mL. - Patient Data Vitals - most recent: Last Vital Signs Temp 37.4 C 04/17/17 02:53 Pulse 77 04/17/17 02:53 Resp 14 04/17/17 02:53 BP 163/79 H 04/17/17 02:53 Pulse Ox 95 04/17/17 02:53 Weight - most recent: 102.693 kg I&O - last 24 hours: Intake & Output 04/16/17 04/17/17 04/17/17 22:59 06:59 14:59 Intake Total 1980 1074 Output Total 220 325 Balance 1760 749 Lab Results last 24 hrs: Laboratory Results - last 24 hr 04/16/17 04/17/17 04/17/17 Range/Units 20:50 05:11 05:11 WBC 12.2 H (4.5-11.0) K/uL RBC 3.94 L (4.30-5.90) M/uL Hgb 11.3 L D (12.0-15.0) g/dL Hct 34.2 L (40.0-54.0) % MCV 87 (80-98) fL MCH 29 (27-31) pg MCHC 33 (32-36) % Plt Count 229 (150-400) K/uL Sodium 134 L (140-148) mmol/L Potassium 4.8 (3.6-5.2) mmol/L Chloride 104 (100-108) mmol/L Carbon Dioxide 21 (21-32) mmol/L Anion Gap 13.8 (5.0-14.0) mmol/L BUN 26 H (7-18) mg/dL Creatinine 1.9 H (0.8-1.3) mg/dL Est Cr Clr Drug Dosing 45.67 mL/min Estimated GFR (MDRD) 36 L (>60) Glucose 160 H (74-106) mg/dL Calcium 7.8 L D (8.5-10.1) mg/dL Total Bilirubin 1.6 H (0.2-1.0) mg/dL AST 21 (15-37) U/L ALT 36 (12-78) U/L Alkaline Phosphatase 121 H (46-116) U/L Total Protein 5.3 L (6.4-8.2) g/dL Albumin 1.9 L (3.4-5.0) g/dL Globulin 3.4 (2.3-3.5) g/dL Albumin/Globulin Ratio 0.6 L (1.2-2.2) Urine Color Brown Urine Appearance Clear Urine pH 6.0 (4.5-8.0) Ur Specific [place] 1.020 (1.008-1.030) Urine Protein 500 H (NEGATIVE) mg/dL Urine Glucose (UA) 250 H (NEGATIVE) mg/dL Urine Ketones Negative (NEGATIVE) mg/dL Urine Occult Blood Moderate (NEGATIVE) Urine Nitrite Negative (NEGAITVE) Urine Bilirubin Negative (NEGATIVE) Urine Urobilinogen Normal (NORMAL) mg/dL Ur Leukocyte Esterase Negative (NEGATIVE) Urine RBC 0-5 (0-5) Urine WBC Not seen (0-5) Ur Epithelial Cells Rare Amorphous Sediment Not seen Urine Bacteria Moderate Urine Mucus Moderate Urine Other Med Orders - Current: Current Medications Acetaminophen (Tylenol) 650 mg PO Q4H PRN PRN Reason: Pain (Mild 1-3)/fever Albuterol (Proventil Neb Soln) 2.5 mg NEB Q4H PRN PRN Reason: Shortness Of Breath/wheezing Aspirin (Halfprin) 81 mg PO DAILY [facility] Atorvastatin Calcium (Lipitor) 20 mg PO DAILY [facility] Gabapentin (Neurontin) 1,200 mg PO BEDTIME [facility] Last Admin: 04/16/17 21:08 Dose: 1,200 mg Hydromorphone HCl (Dilaudid Livestock Nutritionist 15 Mg In Ns 30 Ml) 0 mg IV ASDIRECTED PRN; Protocol PRN Reason: Pain Last Admin: 04/16/17 20:41 Dose: 15 mg Piperacillin Sod/Tazobactam (Sod 3.375 gm/ Sodium Chloride) 50 mls @ 100 mls/ hr IV Q6H [facility] Last Admin: 04/17/17 02:47 Dose: 100 mls/hr Sodium Chloride (Normal Saline) 1,000 mls @ 125 mls/hr IV ASDIRECTED [facility] Last Admin: 04/17/17 06:47 Dose: 125 mls/hr Insulin Aspart (Novolog) 0 unit SUBCUT ASDIRECTED [facility] PRN Reason: Protocol Last Admin: 04/16/17 21:21 Dose: 1 unit Isosorbide Mononitrate (Imdur) 60 mg PO DAILY [facility] Lorazepam (Ativan) 0.5 - 1 mg IVPUSH Q4H PRN PRN Reason: Nausea/Vomiting Losartan Potassium (Cozaar) 25 mg PO BID [facility] Last Admin: 04/16/17 21:08 Dose: 25 mg Naloxone HCl (Narcan) 0.4 mg IVPUSH Q2M PRN PRN Reason: Respiratory Distress Ondansetron HCl (Zofran Odt) 4 mg PO Q6H PRN PRN Reason: Nausea able to take PO Ondansetron HCl (Zofran) 4 mg IV Q6H PRN PRN Reason: Nausea/Vomiting Pantoprazole Sodium (Protonix Iv) 40 mg IVPUSH Q24H [facility] Last Admin: 04/16/17 21:08 Dose: 40 mg Polyethylene Glycol (Miralax) 17 gm PO DAILY PRN PRN Reason: Constipation Senna/Docusate Sodium (Senna Plus) 1 tab PO BID PRN PRN Reason: Constipation Discontinued Medications Hydromorphone HCl (Dilaudid) 0.5 mg IVPUSH ONETIME ONE Stop: 04/16/17 16:44 Last Admin: 04/16/17 16:53 Dose: 0.5 mg Hydromorphone HCl (Dilaudid) 0.5 mg IVPUSH ONETIME ONE Stop: 04/16/17 18:41 Last Admin: 04/16/17 19:08 Dose: 0.5 mg Sodium Chloride (Normal Saline) 1,000 mls @ 999 mls/hr IV ASDIRECTED [facility] Last Admin: 04/16/17 16:55 Dose: 999 mls/hr Sodium Chloride (Normal Saline) 1,000 mls @ 999 mls/hr IV ASDIRECTED [facility] Last Admin: 04/16/17 19:22 Dose: 999 mls/hr Ondansetron HCl (Zofran) 4 mg IVPUSH ONETIME ONE Stop: 04/16/17 16:57 Last Admin: 04/16/17 16:58 Dose: 4 mg Ondansetron HCl (Zofran) Confirm Administered Dose 4 mg .ROUTE .STK-MED ONE Stop: 04/16/17 16:58 Last Admin: 04/16/17 17:00 Dose: Not Given - Exam General: alert, oriented, cooperative HEENT: Pupils equal, Pupils reactive, EOMI, Mucous membr. moist/pink Neck: supple Lungs: Clear to auscultation, Normal respiratory effort Cardiovascular: Regular Rate, Regular Rhythm Abdomen: bowel sounds present, soft, no tenderness Extremities: no edema Skin: warm, dry, intact Psy/Mental Status: alert, normal affect, normal mood - Problem List Review Problem List Initiated/Reviewed/Updated: Yes - My Orders Last 24 Hours: Active Orders 24 hr Category Date Time Status Patient Status [ADT] Routine ADT 04/16/17 20:04 Active Communication Order [RC] ROUTINE Care 04/17/17 06:39 Active Communication Order [RC] STAT Care 04/16/17 20:04 Active Diabetes Education [RC] Click To Edit Care 04/16/17 20:04 Active Intake and Output [RC] QSHIFT Care 04/16/17 20:04 Active Notify Provider Consults [RC] ASDIRECTED Care 04/16/17 20:04 Active Notify Provider Vital Signs [RC] ASDIRECTED Care 04/16/17 20:04 Active Notify Provider [RC] PRN Care 04/16/17 20:04 Active Notify Provider [RC] PRN Care 04/16/17 20:04 Active Oxygen Therapy [RC] PRN Care 04/16/17 20:04 Active BOATSWAINS MATE Record [RC] Q12H Care 04/16/17 20:04 Active Pulse Oximetry [RC] CONTINUOUS Care 04/16/17 20:04 Active RT Aerosol Therapy [RC] ASDIRECTED Care 04/16/17 20:04 Active Up With Assistance [RC] ASDIRECTED Care 04/16/17 20:04 Active VTE/DVT Education [RC] Per Unit Routine Care 04/16/17 20:04 Active Vital Signs [RC] Q4H Care 04/16/17 20:04 Active Consult to Physician [CONS] Routine Cons 04/16/17 20:04 Ordered Nothing per Oral Now Diet [DIET] Diet 04/16/17 Dinner Active GLUCOSE POC LAB TO COLLECT [POC] QIDACANDBED Lab 04/17/17 07:30 Ordered GLUCOSE POC LAB TO COLLECT [POC] QIDACANDBED Lab 04/17/17 11:30 Ordered GLUCOSE POC LAB TO COLLECT [POC] QIDACANDBED Lab 04/17/17 16:30 Ordered GLUCOSE POC LAB TO COLLECT [POC] QIDACANDBED Lab 04/17/17 21:00 Ordered GLUCOSE POC LAB TO COLLECT [POC] QIDACANDBED Lab 04/18/17 07:30 Ordered GLUCOSE POC LAB TO COLLECT [POC] QIDACANDBED Lab 04/18/17 11:30 Ordered GLUCOSE POC LAB TO COLLECT [POC] QIDACANDBED Lab 04/18/17 16:30 Ordered GLUCOSE POC LAB TO COLLECT [POC] QIDACANDBED Lab 04/18/17 21:00 Ordered GLUCOSE POC LAB TO COLLECT [POC] QIDACANDBED Lab 04/19/17 07:30 Ordered GLUCOSE POC LAB TO COLLECT [POC] QIDACANDBED Lab 04/19/17 11:30 Ordered GLUCOSE POC LAB TO COLLECT [POC] QIDACANDBED Lab 04/19/17 16:30 Ordered GLUCOSE POC LAB TO COLLECT [POC] QIDACANDBED Lab 04/19/17 21:00 Ordered GLUCOSE POC LAB TO COLLECT [POC] QIDACANDBED Lab 04/20/17 07:30 Ordered GLUCOSE POC LAB TO COLLECT [POC] QIDACANDBED Lab 04/20/17 11:30 Ordered GLUCOSE POC LAB TO COLLECT [POC] QIDACANDBED Lab 04/20/17 16:30 Ordered GLUCOSE POC LAB TO COLLECT [POC] QIDACANDBED Lab 04/20/17 21:00 Ordered GLUCOSE POC LAB TO COLLECT [POC] QIDACANDBED Lab 04/21/17 07:30 Ordered GLUCOSE POC LAB TO COLLECT [POC] QIDACANDBED Lab 04/21/17 11:30 Ordered GLUCOSE POC LAB TO COLLECT [POC] QIDACANDBED Lab 04/21/17 16:30 Ordered GLUCOSE POC LAB TO COLLECT [POC] QIDACANDBED Lab 04/21/17 21:00 Ordered GLUCOSE POC LAB TO COLLECT [POC] QIDACANDBED Lab 04/22/17 07:30 Ordered Acetaminophen [Tylenol] Med 04/16/17 20:04 Active 650 mg PO Q4H PRN Albuterol [Proventil Neb Soln] Med 04/16/17 20:04 Active 2.5 mg NEB Q4H PRN Docusate Sodium/Sennosides [Senna Plus] Med 04/16/17 20:04 Active 1 tab PO BID PRN HYDROmorphone/Normal Saline [Dilaudid [employer] MATE 15 MG in NS Med 04/16/17 20:04 Active 30 ML] See Protocol IV ASDIRECTED PRN Insulin Aspart [NovoLOG] Med 04/16/17 20:04 Active See Protocol SUBCUT ASDIRECTED LORazepam [Ativan] Med 04/16/17 20:04 Active 0.5 - 1 mg IVPUSH Q4H PRN Naloxone [Narcan] Med 04/16/17 20:04 Active 0.4 mg IVPUSH Q2M PRN Ondansetron [Zofran ODT] Med 04/16/17 20:04 Active 4 mg PO Q6H PRN Ondansetron [Zofran] Med 04/16/17 20:04 Active 4 mg IV Q6H PRN Pantoprazole [ProTONIX IV] Med 04/16/17 20:00 Active 40 mg IVPUSH Q24H Polyethylene Glycol 3350 [MiraLAX] Med 04/16/17 20:04 Active 17 gm PO DAILY PRN Sodium Chloride 0.9% [Normal Saline] 1,000 ml Med 04/16/17 20:04 Active IV ASDIRECTED Medication Discontinuation Instructions [OM.PC] Stat Oth 04/16/17 20:04 Ordered Sequential Compression Device [OM.PC] Per Unit Routine Oth 04/16/17 20:04 Ordered VTE Pharmacological Contraindications [AST] Per Unit Oth 04/16/17 20:04 Ordered Routine Resuscitation Status Routine Resus Stat 04/16/17 19:13 Ordered Medication Orders Acetaminophen (Tylenol) 650 mg PO Q4H PRN PRN Reason: Pain (Mild 1-3)/fever Albuterol (Proventil Neb Soln) 2.5 mg NEB Q4H PRN PRN Reason: Shortness Of Breath/wheezing Aspirin (Halfprin) 81 mg PO DAILY [place] Atorvastatin Calcium (Lipitor) 20 mg PO DAILY [facility] Gabapentin (Neurontin) 1,200 mg PO BEDTIME [place] Last Admin: 04/16/17 21:08 Dose: 1,200 mg Hydromorphone HCl (Dilaudid [employer] 15 Mg In Ns 30 Ml) 0 mg IV ASDIRECTED PRN; Protocol PRN Reason: Pain Last Admin: 04/16/17 20:41 Dose: 15 mg Piperacillin Sod/Tazobactam (Sod 3.375 gm/ Sodium Chloride) 50 mls @ 100 mls/ hr IV Q6H [facility] Last Admin: 04/17/17 02:47 Dose: 100 mls/hr Admin: 04/16/17 20:09 Dose: 100 mls/hr Sodium Chloride (Normal Saline) 1,000 mls @ 125 mls/hr IV ASDIRECTED [facility] Last Admin: 04/17/17 06:47 Dose: 125 mls/hr Infusion: 04/17/17 06:20 Dose: 125 mls/hr Admin: 04/16/17 22:20 Dose: 125 mls/hr Insulin Aspart (Novolog) 0 unit SUBCUT ASDIRECTED [facility] PRN Reason: Protocol Last Admin: 04/16/17 21:21 Dose: 1 unit Isosorbide Mononitrate (Imdur) 60 mg PO DAILY [facility] Lorazepam (Ativan) 0.5 - 1 mg IVPUSH Q4H PRN PRN Reason: Nausea/Vomiting Losartan Potassium (Cozaar) 25 mg PO BID [facility] Last Admin: 04/16/17 21:08 Dose: 25 mg Naloxone HCl (Narcan) 0.4 mg IVPUSH Q2M PRN PRN Reason: Respiratory Distress Ondansetron HCl (Zofran Odt) 4 mg PO Q6H PRN PRN Reason: Nausea able to take PO Ondansetron HCl (Zofran) 4 mg IV Q6H PRN PRN Reason: Nausea/Vomiting Pantoprazole Sodium (Protonix Iv) 40 mg IVPUSH Q24H [facility] Last Admin: 04/16/17 21:08 Dose: 40 mg Polyethylene Glycol (Miralax) 17 gm PO DAILY PRN PRN Reason: Constipation Senna/Docusate Sodium (Senna Plus) 1 tab PO BID PRN PRN Reason: Constipation - Assessment Assessment (Free Text/Narrative):: Laparoscopic cholecystectomy - Plan Plan (Free Text/Narrative):: 1. IV Dilaudid PRN pain and Zofran PRN nausea 2. Zosyn 100 mL/hr 3. Aztreonam 1 g IV on-call to OR 4. Losartan 25 mg PO and Imdur to administer this a.m.
[2017-04-17] MEDS ORDERED: Dextrose 5%-Lactated Ringers 1,000 ML IV SCH (08:15)
[2017-04-17] MEDS: Piperacillin/Tazobactam/Dext 3.375 GM in Premix Bag 1 BAG IV SCH ×3 (08:34→20:04)
[2017-04-17] MEDS: Losartan 50 MG Tab PO SCH ×2 (08:36→20:03)
[2017-04-17] MEDS: Isosorbide Mononitrate 30 MG Tab.ER PO SCH (08:37)
[2017-04-17] MEDS: Aspirin 81 MG Tab.EC PO SCH (08:38)
--- NOTE | 2017-04-17 08:57 | CR ---
Chest 1V Frontal FINDINGS: The heart and vascular structures are normal in appearance. No infiltrates or effusions ar e demonstrated. There are chronic degenerative findings of the shoulders. IMPRESSION: 1. No acute findings.
[2017-04-17] MEDS ORDERED: atorvaSTATin 20 MG Tab PO SCH (09:00)
--- NOTE | 2017-04-17 09:34 | PCM.PN ---
- General Info Date of Service: 04/17/17 Functional Status: Reports: urinating. Denies: pain controlled - Review of Systems General: Reports: Fever, Weakness Gastrointestinal: Reports: Abdominal pain. Denies: Nausea Systems Review Comment:: low-grade fevers overnight. Pain has been fairly well-controlled but around 9 AM this morning his pain increased significantly. He continues to report right upper quadrant pain that radiates to the right flank and right lower quadrant. no nausea or vomiting. He feels miserable at this time. Blood tests are stable other than a slightly improved white blood cell count. Blood cultures are negative so far. Tolerating antibiotics. - Patient Data Vitals - most recent: Last Vital Signs Temp 37.9 C 04/17/17 08:36 Pulse 86 04/17/17 08:36 Resp 18 04/17/17 08:36 BP 141/73 H 04/17/17 08:37 Pulse Ox 94 L 04/17/17 08:36 Weight - most recent: 102.693 kg I&O - last 24 hours: Intake & Output 04/16/17 04/17/17 04/17/17 22:59 06:59 14:59 Intake Total 1980 1074 Output Total 220 325 Balance 1760 749 Lab Results last 24 hrs: Laboratory Results - last 24 hr 04/16/17 04/17/17 04/17/17 Range/Units 20:50 05:11 05:11 WBC 12.2 H (4.5-11.0) K/uL RBC 3.94 L (4.30-5.90) M/uL Hgb 11.3 L D (12.0-15.0) g/dL Hct 34.2 L (40.0-54.0) % MCV 87 (80-98) fL MCH 29 (27-31) pg MCHC 33 (32-36) % Plt Count 229 (150-400) K/uL Sodium 134 L (140-148) mmol/L Potassium 4.8 (3.6-5.2) mmol/L Chloride 104 (100-108) mmol/L Carbon Dioxide 21 (21-32) mmol/L Anion Gap 13.8 (5.0-14.0) mmol/L BUN 26 H (7-18) mg/dL Creatinine 1.9 H (0.8-1.3) mg/dL Est Cr Clr Drug Dosing 45.67 mL/min Estimated GFR (MDRD) 36 L (>60) Glucose 160 H (74-106) mg/dL Calcium 7.8 L D (8.5-10.1) mg/dL Total Bilirubin 1.6 H (0.2-1.0) mg/dL AST 21 (15-37) U/L ALT 36 (12-78) U/L Alkaline Phosphatase 121 H (46-116) U/L Total Protein 5.3 L (6.4-8.2) g/dL Albumin 1.9 L (3.4-5.0) g/dL Globulin 3.4 (2.3-3.5) g/dL Albumin/Globulin Ratio 0.6 L (1.2-2.2) Urine Color Brown Urine Appearance Clear Urine pH 6.0 (4.5-8.0) Ur Specific [place] 1.020 (1.008-1.030) Urine Protein 500 H (NEGATIVE) mg/dL Urine Glucose (UA) 250 H (NEGATIVE) mg/dL Urine Ketones Negative (NEGATIVE) mg/dL Urine Occult Blood Moderate (NEGATIVE) Urine Nitrite Negative (NEGAITVE) Urine Bilirubin Negative (NEGATIVE) Urine Urobilinogen Normal (NORMAL) mg/dL Ur Leukocyte Esterase Negative (NEGATIVE) Urine RBC 0-5 (0-5) Urine WBC Not seen (0-5) Ur Epithelial Cells Rare Amorphous Sediment Not seen Urine Bacteria Moderate Urine Mucus Moderate Urine Other Med Orders - Current: Current Medications Acetaminophen (Tylenol) 650 mg PO Q4H PRN PRN Reason: Pain (Mild 1-3)/fever Albuterol (Proventil Neb Soln) 2.5 mg NEB Q4H PRN PRN Reason: Shortness Of Breath/wheezing Aspirin (Halfprin) 81 mg PO DAILY [facility] Last Admin: 04/17/17 08:38 Dose: Not Given Atorvastatin Calcium (Lipitor) 20 mg PO DAILY [facility] Last Admin: 04/17/17 08:39 Dose: Not Given Gabapentin (Neurontin) 1,200 mg PO BEDTIME [facility] Last Admin: 04/16/17 21:08 Dose: 1,200 mg Hydromorphone HCl (Dilaudid [employer] 15 Mg In Ns 30 Ml) 0 mg IV ASDIRECTED PRN; Protocol PRN Reason: Pain Last Admin: 04/16/17 20:41 Dose: 15 mg Piperacillin/Tazobactam/ (Dextrose 3.375 gm/ Premix) 50 mls @ 100 mls/hr IV Q6H [facility] Last Admin: 04/17/17 08:34 Dose: 100 mls/hr Dextrose/Lactated Ringer's (Dextrose 5%-Lactated Ringers) 1,000 mls @ 125 mls/ hr IV ASDIRECTED [facility] Aztreonam/Dextrose 1 gm/ (Premix) 50 mls @ 100 mls/hr IV ONCALL ONE Stop: 04/17/17 12:29 Insulin Aspart (Novolog) 0 unit SUBCUT ASDIRECTED [facility] PRN Reason: Protocol Last Admin: 04/16/17 21:21 Dose: 1 unit Isosorbide Mononitrate (Imdur) 60 mg PO DAILY [facility] Last Admin: 04/17/17 08:37 Dose: 60 mg Lorazepam (Ativan) 0.5 - 1 mg IVPUSH Q4H PRN PRN Reason: Nausea/Vomiting Last Admin: 04/17/17 08:30 Dose: 1 mg Losartan Potassium (Cozaar) 25 mg PO BID [facility] Last Admin: 04/17/17 08:36 Dose: 25 mg Naloxone HCl (Narcan) 0.4 mg IVPUSH Q2M PRN PRN Reason: Respiratory Distress Ondansetron HCl (Zofran Odt) 4 mg PO Q6H PRN PRN Reason: Nausea able to take PO Ondansetron HCl (Zofran) 4 mg IV Q6H PRN PRN Reason: Nausea/Vomiting Pantoprazole Sodium (Protonix Iv) 40 mg IVPUSH Q24H [facility] Last Admin: 04/16/17 21:08 Dose: 40 mg Polyethylene Glycol (Miralax) 17 gm PO DAILY PRN PRN Reason: Constipation Senna/Docusate Sodium (Senna Plus) 1 tab PO BID PRN PRN Reason: Constipation Discontinued Medications Hydromorphone HCl (Dilaudid) 0.5 mg IVPUSH ONETIME ONE Stop: 04/16/17 16:44 Last Admin: 04/16/17 16:53 Dose: 0.5 mg Hydromorphone HCl (Dilaudid) 0.5 mg IVPUSH ONETIME ONE Stop: 04/16/17 18:41 Last Admin: 04/16/17 19:08 Dose: 0.5 mg Sodium Chloride (Normal Saline) 1,000 mls @ 999 mls/hr IV ASDIRECTED [facility] Last Admin: 04/16/17 16:55 Dose: 999 mls/hr Sodium Chloride (Normal Saline) 1,000 mls @ 999 mls/hr IV ASDIRECTED [facility] Last Admin: 04/16/17 19:22 Dose: 999 mls/hr Piperacillin Sod/Tazobactam (Sod 3.375 gm/ Sodium Chloride) 50 mls @ 100 mls/ hr IV Q6H [facility] Last Admin: 04/17/17 02:47 Dose: 100 mls/hr Sodium Chloride (Normal Saline) 1,000 mls @ 125 mls/hr IV ASDIRECTED [facility] Last Admin: 04/17/17 06:47 Dose: 125 mls/hr Ondansetron HCl (Zofran) 4 mg IVPUSH ONETIME ONE Stop: 04/16/17 16:57 Last Admin: 04/16/17 16:58 Dose: 4 mg Ondansetron HCl (Zofran) Confirm Administered Dose 4 mg .ROUTE .STK-MED ONE Stop: 04/16/17 16:58 Last Admin: 04/16/17 17:00 Dose: Not Given - Exam Quality Assessment: No: supplemental oxygen General: alert, oriented, cooperative, mild distress Neck: supple Lungs: Normal respiratory effort Cardiovascular: Regular Rate, Regular Rhythm Abdomen: soft, no distension, guarding, tenderness Extremities: no edema, no cyanosis Skin: warm, dry Psy/Mental Status: alert, normal affect - Problem List & Annotations (1) Acute cholecystitis SNOMED Code(s): 35477428 Code(s): K81.0 - ACUTE CHOLECYSTITIS Status: Acute Current Visit: Yes (2) Acute kidney injury SNOMED Code(s): 56105674 Code(s): N17.9 - ACUTE KIDNEY FAILURE, UNSPECIFIED Status: Acute Current Visit: Yes (3) Coronary artery disease SNOMED Code(s): 75702028 Code(s): I25.10 - ATHSCL HEART DISEASE OF [place] CORONARY ARTERY W/O ANG PCTRS Status: Chronic Current Visit: Yes Qualifiers: Coronary Disease-Associated Artery/Lesion type: [place] artery [place] vs. transplanted heart: [place] heart Associated angina: without angina Qualified Code(s): I25.10 - Atherosclerotic heart disease of [place] coronary artery without angina pectoris (4) Paroxysmal atrial fibrillation SNOMED Code(s): 525739985 Code(s): I48.0 - PAROXYSMAL ATRIAL FIBRILLATION Status: Chronic Current Visit: Yes - Problem List Review Problem List Initiated/Reviewed/Updated: Yes - My Orders Last 24 Hours: My Active Orders 04/16/17 19:13 Resuscitation Status Routine 04/16/17 20:00 Pantoprazole [ProTONIX IV] 40 mg IVPUSH Q24H 04/16/17 20:04 Patient Status [ADT] Routine Communication Order [RC] STAT Diabetes Education [RC] Click to Edit Intake and Output [RC] QSHIFT Notify Provider Consults [RC] ASDIRECTED Notify Provider Vital Signs [RC] ASDIRECTED Notify Provider [RC] PRN Notify Provider [RC] PRN Oxygen Therapy [RC] PRN POST SPLITTER Record [RC] Q12H Pulse Oximetry [RC] CONTINUOUS RT Aerosol Therapy [RC] ASDIRECTED Up With Assistance [RC] ASDIRECTED VTE/DVT Education [RC] Per Unit Routine Vital Signs [RC] Q4H Consult to Physician [CONS] Routine Acetaminophen [Tylenol] 650 mg PO Q4H PRN Albuterol [Proventil Neb Soln] 2.5 mg NEB Q4H PRN Docusate Sodium/Sennosides [Senna Plus] 1 tab PO BID PRN HYDROmorphone/Normal Saline [Dilaudid POST SPLITTER 15 MG in NS 30 ML] See Protocol IV ASDIRECTED PRN Insulin Aspart [NovoLOG] See Protocol SUBCUT ASDIRECTED LORazepam [Ativan] 0.5 - 1 mg IVPUSH Q4H PRN Naloxone [Narcan] 0.4 mg IVPUSH Q2M PRN Ondansetron [Zofran ODT] 4 mg PO Q6H PRN Ondansetron [Zofran] 4 mg IV Q6H PRN Polyethylene Glycol 3350 [MiraLAX] 17 gm PO DAILY PRN Medication Discontinuation Instructions [OM.PC] Stat Sequential Compression Device [OM.PC] Per Unit Routine VTE Pharmacological Contraindications [AST] Per Unit Routine 04/16/17 Dinner Nothing per Oral Now Diet [DIET] 04/17/17 08:00 Piperacillin/Tazobactam/Dext [Zosyn in Dextrose Iso-Osmotic 3.375 GM] 3.375 gm Premix Bag 1 bag IV Q6H 04/17/17 11:30 GLUCOSE POC LAB TO COLLECT [POC] QIDACANDBED 04/17/17 16:30 GLUCOSE POC LAB TO COLLECT [POC] QIDACANDBED 04/17/17 21:00 GLUCOSE POC LAB TO COLLECT [POC] QIDACANDBED 04/18/17 05:00 CBC W/O DIFF,HEMOGRAM [HEME] Timed (1) COMPREHENSIVE METABOLIC PN,CMP [CHEM] Timed 04/18/17 07:30 GLUCOSE POC LAB TO COLLECT [POC] QIDACANDBED 04/18/17 11:30 GLUCOSE POC LAB TO COLLECT [POC] QIDACANDBED 04/18/17 16:30 GLUCOSE POC LAB TO COLLECT [POC] QIDACANDBED 04/18/17 21:00 GLUCOSE POC LAB TO COLLECT [POC] QIDACANDBED 04/19/17 07:30 GLUCOSE POC LAB TO COLLECT [POC] QIDACANDBED 04/19/17 11:30 GLUCOSE POC LAB TO COLLECT [POC] QIDACANDBED 04/19/17 16:30 GLUCOSE POC LAB TO COLLECT [POC] QIDACANDBED 04/19/17 21:00 GLUCOSE POC LAB TO COLLECT [POC] QIDACANDBED 04/20/17 07:30 GLUCOSE POC LAB TO COLLECT [POC] QIDACANDBED 04/20/17 11:30 GLUCOSE POC LAB TO COLLECT [POC] QIDACANDBED 04/20/17 16:30 GLUCOSE POC LAB TO COLLECT [POC] QIDACANDBED 04/20/17 21:00 GLUCOSE POC LAB TO COLLECT [POC] QIDACANDBED 04/21/17 07:30 GLUCOSE POC LAB TO COLLECT [POC] QIDACANDBED 04/21/17 11:30 GLUCOSE POC LAB TO COLLECT [POC] QIDACANDBED 04/21/17 16:30 GLUCOSE POC LAB TO COLLECT [POC] QIDACANDBED 04/21/17 21:00 GLUCOSE POC LAB TO COLLECT [POC] QIDACANDBED 04/22/17 07:30 GLUCOSE POC LAB TO COLLECT [POC] QIDACANDBED - Plan Plan:: Assessment and plan - Acute cholecystitis - suspected diagnosis with acute right upper quadrant pain and abnormal CT. Significant worsening of the pain this morning with concern for possible development of peritoneal signs. Surgery is planned for later in the day. -Hold apixaban -IV fluids -Empiric Pip/Tazo -Pain control with POST SPLITTER -Anti-emetics -Surgery planned for later in the day Acute kidney injury - probably secondary to infection as above, slight improvement in kidney function with IV fluids. -continue IV fluids and repeat labs in the morning Coronary artery disease - status post four-vessel CABG in 2009. No recent symptoms or decline in functional status. -Continue home medications Paroxysmal atrial fibrillation - currently in sinus rhythm. -Hold anticoagulation Maintenance issues - - DVT prophylaxis - mechanical - GI prophylaxis - PPI - Nutrition - n.p.o. Disposition - I anticipate discharge to home after the hospital stay Victoriano Lal M.D.
[2017-04-17] MEDS ORDERED: Dexamethasone 4 MG/ML SDV ONE (09:36)
[2017-04-17] MEDS ORDERED: Succinylcholine/Normal Saline 200 MG/10 ML Syringe ONE (09:36)
[2017-04-17] MEDS ORDERED: fentaNYL 250 MCG/5 ML SDV ONE (09:36)
[2017-04-17] MEDS ORDERED: Rocuronium 50 MG/5 ML Vial ONE (09:36)
[2017-04-17] MEDS ORDERED: Ondansetron 4 MG/2 ML SDV ONE (09:36)
[2017-04-17] MEDS ORDERED: Propofol 200 MG/20 ML SDV ONE (09:36)
[2017-04-17] MEDS ORDERED: Neostigmine Methylsulfate 1 MG/ML 5 ML Syringe ONE (09:36)
[2017-04-17] MEDS: Aztreonam/Dextrose-Water 1 GM in Premix Bag 1 BAG IV ONE ×2 (10:13→13:58)
[2017-04-17] MEDS ORDERED: Scopolamine 1.5 MG Transdermal Patch ONE (10:27)
[2017-04-17] MEDS: Bupivacaine 0.5%/EPINEPHrine 1:200,000 50 ML MDV ONE ×2 (10:56→11:47)
[2017-04-17] MEDS ORDERED: Sodium Chloride 0.9% 10 ML ONE (11:06)
[2017-04-17] MEDS ORDERED: Meropenem 500 MG SDV ONE (11:06)
[2017-04-17] MEDS ORDERED: fentaNYL 100 MCG/2 ML SDV ONE (11:28)
[2017-04-17] MEDS ORDERED: Naloxone 0.4 MG/ML SDV IV PRN (13:20)
[2017-04-17] MEDS ORDERED: HYDROmorphone/Normal Saline 15 MG/30 ML PCA IV PRN (13:20)
[2017-04-17] MEDS: Insulin Aspart 100 Units/ML 3 ML Pen SUBCUT SCH ×3 (15:28→21:29)
[2017-04-17] MEDS: Dextrose 5%-Lactated Ringers 1,000 ML IV SCH (18:20)
[2017-04-17] MEDS: Aztreonam/Dextrose-Water 1 GM in Premix Bag 1 BAG IV SCH (18:30)
[2017-04-17] MEDS ORDERED: Sodium Chloride 0.9% 500 ML IV ONE (19:14)
[2017-04-17] MEDS ORDERED: Lidocaine 2% Jelly 10 ML Urojet MUCMEM ONE (19:30)
[2017-04-17] MEDS: Gabapentin 400 MG Cap PO SCH (20:00)
[2017-04-17] MEDS: Pantoprazole 40 MG Vial IVPUSH SCH (20:00)
[2017-04-17] MEDS: atorvaSTATin 20 MG Tab PO SCH (20:14)
[2017-04-18] MEDS: Piperacillin/Tazobactam/Dext 3.375 GM in Premix Bag 1 BAG IV SCH ×4 (01:02→19:59)
[2017-04-18] MEDS: Dextrose 5%-Lactated Ringers 1,000 ML IV SCH ×2 (01:02→07:40)
[2017-04-18] MEDS: Aztreonam/Dextrose-Water 1 GM in Premix Bag 1 BAG IV SCH ×3 (02:06→17:30)
[2017-04-18] MEDS ORDERED: Acetaminophen 500 MG Tab PO PRN (07:51)
[2017-04-18] MEDS ORDERED: Ondansetron 4 MG Tab.DIS PO PRN (07:52)
[2017-04-18] MEDS ORDERED: Dextrose 5%-Lactated Ringers 1,000 ML IV SCH (07:57)
[2017-04-18] MEDS ORDERED: Sennosides 8.6 MG Tab PO PRN (08:01)
[2017-04-18] MEDS ORDERED: Nitroglycerin 0.4 MG Tab.SL SL PRN (08:01)
[2017-04-18] MEDS ORDERED: Torsemide 20 MG Tab PO PRN (08:01)
[2017-04-18] MEDS ORDERED: Albuterol 8 GM Inhaler INH PRN (08:01)
[2017-04-18] MEDS: Losartan 50 MG Tab PO SCH ×2 (08:17→20:02)
[2017-04-18] MEDS: Aspirin 81 MG Tab.EC PO SCH (08:17)
[2017-04-18] MEDS: Isosorbide Mononitrate 30 MG Tab.ER PO SCH (08:17)
[2017-04-18] MEDS: Insulin Aspart 100 Units/ML 3 ML Pen SUBCUT SCH ×4 (08:28→21:41)
[2017-04-18] MEDS: Furosemide 20 MG/2 ML VIAL IVPUSH SCH ×2 (08:39→08:40)
[2017-04-18] MEDS: Apixaban 5 MG Tab PO SCH ×2 (09:30→20:03)
[2017-04-18] MEDS: glipiZIDE 5 MG Tab PO SCH ×2 (09:30→17:30)
[2017-04-18] MEDS: Tamsulosin 0.4 MG Cap.ER PO SCH ×2 (09:30→17:30)
--- NOTE | 2017-04-18 10:27 | PCM.PN ---
- General Info Date of Service: 04/18/17 Functional Status: Reports: pain controlled, tolerating diet, ambulating - Review of Systems General: Denies: Fever Pulmonary: Denies: shortness of breath Gastrointestinal: Reports: Abdominal pain (minimal) Genitourinary: Reports: retention Systems Review Comment:: Difficulty with urinary retention overnight. He did have a [place] catheter placed. He has not had any fevers. Abdominal pain has improved significantly. No complaints of nausea or vomiting. No shortness of breath or lower extremity edema. Cultures are pending. - Patient Data Vitals - most recent: Last Vital Signs Temp 36.2 C 04/18/17 07:54 Pulse 77 04/18/17 07:54 Resp 16 04/18/17 07:54 BP 166/85 H 04/18/17 08:17 Pulse Ox 94 L 04/18/17 07:54 Weight - most recent: 102.693 kg I&O - last 24 hours: Intake & Output 04/17/17 04/18/17 04/18/17 22:59 06:59 14:59 Intake Total 2310 2857 240 Output Total 807 975 Balance 1503 1882 240 Lab Results last 24 hrs: Laboratory Results - last 24 hr 04/18/17 04/18/17 Range/Units 04:20 04:20 WBC 9.1 (4.5-11.0) K/uL RBC 3.12 L (4.30-5.90) M/uL Hgb 8.9 L D (12.0-15.0) g/dL Hct 27.8 L (40.0-54.0) % MCV 89 (80-98) fL MCH 29 (27-31) pg MCHC 32 (32-36) % Plt Count 192 (150-400) K/uL Neut % (Auto) 89 H (36-66) % Lymph % (Auto) 3 L (24-44) % [place] % (Auto) 8 H (2-6) % Eos % (Auto) 0 L (2-4) % Baso % (Auto) 0 (0-1) % Sodium 133 L (140-148) mmol/L Potassium 5.3 H (3.6-5.2) mmol/L Chloride 103 (100-108) mmol/L Carbon Dioxide 22 (21-32) mmol/L Anion Gap 13.3 (5.0-14.0) mmol/L BUN 28 H (7-18) mg/dL Creatinine 2.1 H (0.8-1.3) mg/dL Est Cr Clr Drug Dosing 41.33 mL/min Estimated GFR (MDRD) 32 L (>60) Glucose 362 H (74-106) mg/dL Calcium 7.9 L (8.5-10.1) mg/dL Phosphorus 3.9 (2.5-4.9) mg/dL Magnesium 1.9 (1.8-2.4) mg/dL Total Bilirubin 0.9 (0.2-1.0) mg/dL AST 73 H D (15-37) U/L ALT 56 (12-78) U/L Alkaline Phosphatase 103 (46-116) U/L Wmf-F-Ccekmtsksuo Pept 5465 H (5-125) pg/mL Total Protein 4.9 L (6.4-8.2) g/dL Albumin 1.6 L (3.4-5.0) g/dL Globulin 3.3 (2.3-3.5) g/dL Albumin/Globulin Ratio 0.5 L (1.2-2.2) Tono Results last 24 hrs: Microbiology 04/17/17 12:14 Gram Stain - Final Other - Abscess 04/17/17 12:14 Gram Stain - Final Other - Abscess Med Orders - Current: Current Medications Acetaminophen (Tylenol) 650 mg PO Q4H PRN PRN Reason: Pain (Mild 1-3)/fever Acetaminophen (Tylenol Extra Strength) 1,000 mg PO Q4H PRN PRN Reason: Pain Albuterol (Proventil Neb Soln) 2.5 mg NEB Q4H PRN PRN Reason: Shortness Of Breath/wheezing Albuterol (Ventolin Hfa) 0 gm INH Q4H PRN PRN Reason: Dyspnea Apixaban (Eliquis) 5 mg PO BID [facility] Last Admin: 04/18/17 09:30 Dose: 5 mg Atorvastatin Calcium (Lipitor) 20 mg PO BEDTIME [facility] Last Admin: 04/17/17 20:14 Dose: 20 mg Gabapentin (Neurontin) 1,200 mg PO BEDTIME [facility] Last Admin: 04/17/17 20:00 Dose: 1,200 mg [facility] Last Admin: 04/18/17 09:30 Dose: 5 mg Hydromorphone HCl (Dilaudid) 2 - 4 mg PO Q4H PRN PRN Reason: Pain Piperacillin/Tazobactam/ (Dextrose 3.375 gm/ Premix) 50 mls @ 100 mls/hr IV Q6H [facility] Last Admin: 04/18/17 08:27 Dose: 100 mls/hr Aztreonam/Dextrose 1 gm/ (Premix) 50 mls @ 100 mls/hr IV Q8H [facility] Last Admin: 04/18/17 09:30 Dose: 100 mls/hr Sodium Chloride (Normal Saline) 1,000 mls @ 25 mls/hr IV ASDIRECTED [facility] Insulin Aspart (Novolog) 0 unit SUBCUT ASDIRECTED [facility] PRN Reason: Protocol Last Admin: 04/18/17 08:28 Dose: 4 unit Isosorbide Mononitrate (Imdur) 60 mg PO DAILY [facility] Last Admin: 04/18/17 08:17 Dose: 60 mg Lorazepam (Ativan) 0.5 - 1 mg IVPUSH Q4H PRN PRN Reason: Nausea/Vomiting Last Admin: 04/17/17 08:30 Dose: 1 mg Losartan Potassium (Cozaar) 25 mg PO BID [facility] Last Admin: 04/18/17 08:17 Dose: 25 mg Nitroglycerin (Nitrostat) 0.4 mg SL Q5M PRN PRN Reason: Chest Pain Ondansetron HCl (Zofran) 4 mg IV Q6H PRN PRN Reason: Nausea/Vomiting Ondansetron HCl (Zofran Odt) 4 mg PO Q4H PRN PRN Reason: Nausea/Vomiting Polyethylene Glycol (Miralax) 17 gm PO DAILY PRN PRN Reason: Constipation Senna (Senna) 8.6 mg PO BID PRN PRN Reason: Constipation Senna/Docusate Sodium (Senna Plus) 1 tab PO BID PRN PRN Reason: Constipation [facility] Last Admin: 04/18/17 09:30 Dose: 0.4 mg Torsemide (Demadex) 20 mg PO DAILY PRN PRN Reason: Edema Discontinued Medications Aspirin (Halfprin) 81 mg PO DAILY [facility] Last Admin: 04/18/17 08:17 Dose: 81 mg Atorvastatin Calcium (Lipitor) 20 mg PO DAILY [facility] Last Admin: 04/17/17 08:39 Dose: Not Given Bupivacaine HCl/Epinephrine Bitart (Marcaine 0.5%/Epinephrine 1:200,000) Confirm Administered Dose 50 ml .ROUTE .STK-MED ONE Stop: 04/17/17 10:03 Last Admin: 04/17/17 11:47 Dose: 16 ml Dexamethasone (Dexamethasone) Confirm Administered Dose 4 mg .ROUTE .STK-MED ONE Stop: 04/17/17 09:37 Fentanyl (Sublimaze) Confirm Administered Dose 250 mcg .ROUTE .STK-MED ONE Stop: 04/17/17 09:37 Fentanyl (Sublimaze) Confirm Administered Dose 100 mcg .ROUTE .STK-MED ONE Stop: 04/17/17 11:29 Furosemide (Lasix) 10 mg IVPUSH BID [facility] Stop: 04/19/17 18:00 Last Admin: 04/18/17 08:40 Dose: Not Given Glycopyrrolate () Confirm Administered Dose 1 mg .ROUTE .STK-MED ONE Stop: 04/17/17 09:37 Hydromorphone HCl (Dilaudid) 0.5 mg IVPUSH ONETIME ONE Stop: 04/16/17 16:44 Last Admin: 04/16/17 16:53 Dose: 0.5 mg Hydromorphone HCl (Dilaudid) 0.5 mg IVPUSH ONETIME ONE Stop: 04/16/17 18:41 Last Admin: 04/16/17 19:08 Dose: 0.5 mg Hydromorphone HCl (Dilaudid [employer] 15 Mg In Ns 30 Ml) 0 mg IV ASDIRECTED PRN; Protocol PRN Reason: Pain Last Admin: 04/16/17 20:41 Dose: 15 mg Hydromorphone HCl (Dilaudid [employer] 15 Mg In Ns 30 Ml) 0 mg IV ASDIRECTED PRN; Protocol PRN Reason: [employer] PAIN [employer] Sodium Chloride (Normal Saline) 1,000 mls @ 999 mls/hr IV ASDIRECTED [facility] Last Admin: 04/16/17 16:55 Dose: 999 mls/hr Sodium Chloride (Normal Saline) 1,000 mls @ 999 mls/hr IV ASDIRECTED [facility] Last Admin: 04/16/17 19:22 Dose: 999 mls/hr Piperacillin Sod/Tazobactam (Sod 3.375 gm/ Sodium Chloride) 50 mls @ 100 mls/ hr IV Q6H [facility] Last Admin: 04/17/17 02:47 Dose: 100 mls/hr Sodium Chloride (Normal Saline) 1,000 mls @ 125 mls/hr IV ASDIRECTED [facility] Last Admin: 04/17/17 06:47 Dose: 125 mls/hr Dextrose/Lactated Ringer's (Dextrose 5%-Lactated Ringers) 1,000 mls @ 125 mls/ hr IV ASDIRECTED [facility] Last Admin: 04/17/17 09:57 Dose: 125 mls/hr Aztreonam/Dextrose 1 gm/ (Premix) 50 mls @ 100 mls/hr IV ONCALL ONE Stop: 04/17/17 12:29 Last Admin: 04/17/17 13:58 Dose: Not Given Sodium Chloride (Normal Saline) Confirm Administered Dose 10 mls @ as directed .ROUTE .STK-MED ONE Stop: 04/17/17 11:07 Dextrose/Lactated Ringer's (Dextrose 5%-Lactated Ringers) 1,000 mls @ 150 mls/ hr IV ASDIRECTED [facility] Last Admin: 04/18/17 07:40 Dose: 150 mls/hr Sodium Chloride (Normal Saline) 500 mls @ 500 mls/hr IV .BOLUS ONE Stop: 04/17/17 20:13 Last Admin: 04/17/17 19:19 Dose: 500 mls/hr Dextrose/Lactated Ringer's (Dextrose 5%-Lactated Ringers) 1,000 mls @ 100 mls/ hr IV ASDIRECTED [facility] Lidocaine HCl (Xylocaine 2% Jelly) 10 ml MUCMEM ONETIME ONE Stop: 04/17/17 19:31 Last Admin: 04/17/17 19:52 Dose: 10 ml Meropenem (Merrem) Confirm Administered Dose 500 mg .ROUTE .STK-MED ONE Stop: 04/17/17 11:07 Last Admin: 04/17/17 11:13 Dose: 500 mg Naloxone HCl (Narcan) 0.4 mg IVPUSH Q2M PRN PRN Reason: Respiratory Distress Naloxone HCl (Narcan) 0.1 mg IV ASDIRECTED PRN PRN Reason: decreased respiratory rate Neostigmine Methylsulfate (Neostigmine) Confirm Administered Dose 5 mg .ROUTE .STK-MED ONE Stop: 04/17/17 09:37 Ondansetron HCl (Zofran) 4 mg IVPUSH ONETIME ONE Stop: 04/16/17 16:57 Last Admin: 04/16/17 16:58 Dose: 4 mg Ondansetron HCl (Zofran) Confirm Administered Dose 4 mg .ROUTE .STK-MED ONE Stop: 04/16/17 16:58 Last Admin: 04/16/17 17:00 Dose: Not Given Ondansetron HCl (Zofran Odt) 4 mg PO Q6H PRN PRN Reason: Nausea able to take PO Ondansetron HCl (Zofran) Confirm Administered Dose 4 mg .ROUTE .STK-MED ONE Stop: 04/17/17 09:37 Pantoprazole Sodium (Protonix Iv) 40 mg IVPUSH Q24H [facility] Last Admin: 04/17/17 20:00 Dose: 40 mg Propofol (Diprivan 20 Ml) Confirm Administered Dose 200 mg .ROUTE .STK-MED ONE Stop: 04/17/17 09:37 Rocuronium [place] (Zemuron) Confirm Administered Dose 50 mg .ROUTE .STK-MED ONE Stop: 04/17/17 09:37 Scopolamine (Transderm-Scop) Confirm Administered Dose 1.5 mg .ROUTE .STK-MED ONE Stop: 04/17/17 10:28 Succinylcholine Chloride (Succinylcholine In Ns Pf) Confirm Administered Dose 200 mg .ROUTE .STK-MED ONE Stop: 04/17/17 09:37 - Exam Quality Assessment: No: supplemental oxygen General: alert, oriented, cooperative, no acute distress Neck: supple Lungs: Clear to auscultation, Normal respiratory effort Cardiovascular: Regular Rate, Regular Rhythm Abdomen: soft, no distension, tenderness (mild) Extremities: no edema, normal pulses Skin: warm, dry Psy/Mental Status: alert, normal affect - Problem List & Annotations (1) Acute cholecystitis SNOMED Code(s): 10381279 Code(s): K81.0 - ACUTE CHOLECYSTITIS Status: Acute Current Visit: Yes (2) Acute kidney injury SNOMED Code(s): 30825109 Code(s): N17.9 - ACUTE KIDNEY FAILURE, UNSPECIFIED Status: Acute Current Visit: Yes (3) Coronary artery disease SNOMED Code(s): 32102037 Code(s): I25.10 - ATHSCL HEART DISEASE OF [place] CORONARY ARTERY W/O ANG PCTRS Status: Chronic Current Visit: Yes Qualifiers: Coronary Disease-Associated Artery/Lesion type: [place] artery [place] vs. transplanted heart: [place] heart Associated angina: without angina Qualified Code(s): I25.10 - Atherosclerotic heart disease of [place] coronary artery without angina pectoris (4) Paroxysmal atrial fibrillation SNOMED Code(s): 479496693 Code(s): I48.0 - PAROXYSMAL ATRIAL FIBRILLATION Status: Chronic Current Visit: Yes - Problem List Review Problem List Initiated/Reviewed/Updated: Yes - My Orders Last 24 Hours: My Active Orders 04/17/17 12:14 CULTURE ANAEROBIC [RM] Routine CULTURE WOUND + SMEAR [RM] Routine 04/17/17 18:53 Bladder Scan [RC] ONETIME 04/17/17 19:15 Urinary Catheter Assessment [RC] ASDIRECTED Urinary Catheter Insertion [Insert Urinary Catheter] [OM.PC] Q24H 04/17/17 21:00 atorvaSTATin [Lipitor] 20 mg PO BEDTIME 04/18/17 10:30 Sodium Chloride 0.9% [Normal Saline] 1,000 ml IV ASDIRECTED 04/18/17 11:30 GLUCOSE POC LAB TO COLLECT [POC] QIDACANDBED 04/18/17 16:30 GLUCOSE POC LAB TO COLLECT [POC] QIDACANDBED 04/18/17 21:00 GLUCOSE POC LAB TO COLLECT [POC] QIDACANDBED 04/19/17 07:30 GLUCOSE POC LAB TO COLLECT [POC] QIDACANDBED 04/19/17 11:30 GLUCOSE POC LAB TO COLLECT [POC] QIDACANDBED 04/19/17 16:30 GLUCOSE POC LAB TO COLLECT [POC] QIDACANDBED 04/19/17 21:00 GLUCOSE POC LAB TO COLLECT [POC] QIDACANDBED 04/20/17 07:30 GLUCOSE POC LAB TO COLLECT [POC] QIDACANDBED 04/20/17 11:30 GLUCOSE POC LAB TO COLLECT [POC] QIDACANDBED 04/20/17 16:30 GLUCOSE POC LAB TO COLLECT [POC] QIDACANDBED 04/20/17 21:00 GLUCOSE POC LAB TO COLLECT [POC] QIDACANDBED 04/21/17 07:30 GLUCOSE POC LAB TO COLLECT [POC] QIDACANDBED 04/21/17 11:30 GLUCOSE POC LAB TO COLLECT [POC] QIDACANDBED 04/21/17 16:30 GLUCOSE POC LAB TO COLLECT [POC] QIDACANDBED 04/21/17 21:00 GLUCOSE POC LAB TO COLLECT [POC] QIDACANDBED 04/22/17 07:30 GLUCOSE POC LAB TO COLLECT [POC] QIDACANDBED - Plan Plan:: Assessment and plan - Acute cholecystitis - status post cholecystectomy and abscess drainage. Clinically doing much better today. -Okay to restart apixaban -Encourage oral intake -Empiric Pip/Tazo -Pain control with oral medications -Anti-emetics -Follow-up cultures Acute on chronic kidney injury - kidney function stable. -repeat labs in the morning Acute urinary retention - probably secondary to anesthesia. History of similar. -Remove [place] tomorrow Coronary artery disease - status post four-vessel CABG in 2009. No recent symptoms or decline in functional status. BNP is elevated but there is no evidence for volume overload or congestive heart failure. I don't believe he needs any diuresis at this time. -Continue home medications Paroxysmal atrial fibrillation - currently in sinus rhythm. -Hold anticoagulation Maintenance issues - - DVT prophylaxis - apixaban - GI prophylaxis - PPI - Nutrition - advance as tolerated Disposition - I anticipate discharge to home after the hospital stay, Hopefully tomorrow Victoriano Lal M.D.
[2017-04-18] MEDS ORDERED: Sodium Chloride 0.9% 1,000 ML IV SCH (10:30)
--- NOTE | 2017-04-18 12:02 | PCM.SURGPN ---
- General Info Date of Service: 04/18/17 Date of Surgery/Procedure: 04/17/17 POD#: 1 Functional Status: Reports: pain controlled, tolerating diet, ambulating, incentive spirometry (1500 mL) - Review of Systems General: Reports: No Symptoms. Denies: Fever Pulmonary: Reports: no symptoms. Denies: shortness of breath Cardiovascular: Reports: No Symptoms. Denies: Chest Pain Gastrointestinal: Reports: Abdominal pain ((minimal) ) Genitourinary: Reports: retention Skin: Reports: no symptoms Systems Review Comment:: Patient is afebrile with normal vital signs. He has been tolerating clear liquids. His RUQ abdominal pain is well controlled. His BNP is elevated at 5465 but patient denies shortness of breath or chest pain. He is ambulating well. Patient reports urinary retention overnight so a [place] was placed by nursing with adequate output. Patient's glucose levels are elevated and he reports an initial a1c of 9.5% a couple years ago and after implementing a gluten free diet he states his non fasting glucose is 103 and his a1c is about 6.8% without any diabetic hyperglycemic agents. - Patient Data Vitals - most recent: Last Vital Signs Temp 36.2 C 04/18/17 07:54 Pulse 77 04/18/17 07:54 Resp 16 04/18/17 07:54 BP 166/85 H 04/18/17 08:17 Pulse Ox 94 L 04/18/17 07:54 Weight - most recent: 102.693 kg I&O - last 24 hours: Intake & Output 04/17/17 04/18/17 04/18/17 22:59 06:59 14:59 Intake Total 2310 2857 240 Output Total 807 975 Balance 1503 1882 240 Lab Results last 24 hrs: Laboratory Results - last 24 hr 04/18/17 04/18/17 Range/Units 04:20 04:20 WBC 9.1 (4.5-11.0) K/uL RBC 3.12 L (4.30-5.90) M/uL Hgb 8.9 L D (12.0-15.0) g/dL Hct 27.8 L (40.0-54.0) % MCV 89 (80-98) fL MCH 29 (27-31) pg MCHC 32 (32-36) % Plt Count 192 (150-400) K/uL Neut % (Auto) 89 H (36-66) % Lymph % (Auto) 3 L (24-44) % [place] % (Auto) 8 H (2-6) % Eos % (Auto) 0 L (2-4) % Baso % (Auto) 0 (0-1) % Sodium 133 L (140-148) mmol/L Potassium 5.3 H (3.6-5.2) mmol/L Chloride 103 (100-108) mmol/L Carbon Dioxide 22 (21-32) mmol/L Anion Gap 13.3 (5.0-14.0) mmol/L BUN 28 H (7-18) mg/dL Creatinine 2.1 H (0.8-1.3) mg/dL Est Cr Clr Drug Dosing 41.33 mL/min Estimated GFR (MDRD) 32 L (>60) Glucose 362 H (74-106) mg/dL Calcium 7.9 L (8.5-10.1) mg/dL Phosphorus 3.9 (2.5-4.9) mg/dL Magnesium 1.9 (1.8-2.4) mg/dL Total Bilirubin 0.9 (0.2-1.0) mg/dL AST 73 H D (15-37) U/L ALT 56 (12-78) U/L Alkaline Phosphatase 103 (46-116) U/L [id number] Pept 5465 H (5-125) pg/mL Total Protein 4.9 L (6.4-8.2) g/dL Albumin 1.6 L (3.4-5.0) g/dL Globulin 3.3 (2.3-3.5) g/dL Albumin/Globulin Ratio 0.5 L (1.2-2.2) Tono Results last 24 hrs: Microbiology 04/17/17 12:14 Gram Stain - Final Other - Abscess 04/17/17 12:14 Gram Stain - Final Other - Abscess Med Orders - Current: Current Medications Acetaminophen (Tylenol) 650 mg PO Q4H PRN PRN Reason: Pain (Mild 1-3)/fever Acetaminophen (Tylenol Extra Strength) 1,000 mg PO Q4H PRN PRN Reason: Pain Albuterol (Proventil Neb Soln) 2.5 mg NEB Q4H PRN PRN Reason: Shortness Of Breath/wheezing Albuterol (Ventolin Hfa) 0 gm INH Q4H PRN PRN Reason: Dyspnea Apixaban (Eliquis) 5 mg PO BID [facility] Last Admin: 04/18/17 09:30 Dose: 5 mg Atorvastatin Calcium (Lipitor) 20 mg PO BEDTIME [facility] Last Admin: 04/17/17 20:14 Dose: 20 mg Gabapentin (Neurontin) 1,200 mg PO BEDTIME [facility] Last Admin: 04/17/17 20:00 Dose: 1,200 mg Glipizide (Glucotrol) 5 mg PO BIDAC [facility] Last Admin: 04/18/17 09:30 Dose: 5 mg Hydromorphone HCl (Dilaudid) 2 - 4 mg PO Q4H PRN PRN Reason: Pain Piperacillin/Tazobactam/ (Dextrose 3.375 gm/ Premix) 50 mls @ 100 mls/hr IV Q6H [facility] Last Admin: 04/18/17 08:27 Dose: 100 mls/hr Aztreonam/Dextrose 1 gm/ (Premix) 50 mls @ 100 mls/hr IV Q8H [facility] Last Admin: 04/18/17 09:30 Dose: 100 mls/hr Sodium Chloride (Normal Saline) 1,000 mls @ 25 mls/hr IV ASDIRECTED [facility] Insulin Aspart (Novolog) 0 unit SUBCUT ASDIRECTED [facility] PRN Reason: Protocol Last Admin: 04/18/17 08:28 Dose: 4 unit Isosorbide Mononitrate (Imdur) 60 mg PO DAILY [facility] Last Admin: 04/18/17 08:17 Dose: 60 mg Lorazepam (Ativan) 0.5 - 1 mg IVPUSH Q4H PRN PRN Reason: Nausea/Vomiting Last Admin: 04/17/17 08:30 Dose: 1 mg Losartan Potassium (Cozaar) 25 mg PO BID [facility] Last Admin: 04/18/17 08:17 Dose: 25 mg Nitroglycerin (Nitrostat) 0.4 mg SL Q5M PRN PRN Reason: Chest Pain Ondansetron HCl (Zofran) 4 mg IV Q6H PRN PRN Reason: Nausea/Vomiting Ondansetron HCl (Zofran Odt) 4 mg PO Q4H PRN PRN Reason: Nausea/Vomiting Polyethylene Glycol (Miralax) 17 gm PO DAILY PRN PRN Reason: Constipation Senna (Senna) 8.6 mg PO BID PRN PRN Reason: Constipation Senna/Docusate Sodium (Senna Plus) 1 tab PO BID PRN PRN Reason: Constipation Tamsulosin [facility] (Flomax) [facility] Last Admin: 04/18/17 09:30 Dose: 0.4 mg Torsemide (Demadex) 20 mg PO DAILY PRN PRN Reason: Edema Discontinued Medications Aspirin (Halfprin) 81 mg PO DAILY [facility] Last Admin: 04/18/17 08:17 Dose: 81 mg Atorvastatin Calcium (Lipitor) 20 mg PO DAILY [facility] Last Admin: 04/17/17 08:39 Dose: Not Given Bupivacaine HCl/Epinephrine Bitart (Marcaine 0.5%/Epinephrine 1:200,000) Confirm Administered Dose 50 ml .ROUTE .STK-MED ONE Stop: 04/17/17 10:03 Last Admin: 04/17/17 11:47 Dose: 16 ml Dexamethasone (Dexamethasone) Confirm Administered Dose 4 mg .ROUTE .STK-MED ONE Stop: 04/17/17 09:37 Fentanyl (Sublimaze) Confirm Administered Dose 250 mcg .ROUTE .STK-MED ONE Stop: 04/17/17 09:37 Fentanyl (Sublimaze) Confirm Administered Dose 100 mcg .ROUTE .STK-MED ONE Stop: 04/17/17 11:29 Furosemide (Lasix) 10 mg IVPUSH BID [facility] Stop: 04/19/17 18:00 Last Admin: 04/18/17 08:40 Dose: Not Given Glycopyrrolate () Confirm Administered Dose 1 mg .ROUTE .STK-MED ONE Stop: 04/17/17 09:37 Hydromorphone HCl (Dilaudid) 0.5 mg IVPUSH ONETIME ONE Stop: 04/16/17 16:44 Last Admin: 04/16/17 16:53 Dose: 0.5 mg Hydromorphone HCl (Dilaudid) 0.5 mg IVPUSH ONETIME ONE Stop: 04/16/17 18:41 Last Admin: 04/16/17 19:08 Dose: 0.5 mg Hydromorphone HCl (Dilaudid Home Organizer 15 Mg In Ns 30 Ml) 0 mg IV ASDIRECTED PRN; Protocol PRN Reason: Pain Last Admin: 04/16/17 20:41 Dose: 15 mg Hydromorphone HCl (Dilaudid Home Organizer 15 Mg In Ns 30 Ml) 0 mg IV ASDIRECTED PRN; Protocol PRN Reason: EVALUATION SPECIALIST PAIN CONTROL Sodium Chloride (Normal Saline) 1,000 mls @ 999 mls/hr IV ASDIRECTED [facility] Last Admin: 04/16/17 16:55 Dose: 999 mls/hr Sodium Chloride (Normal Saline) 1,000 mls @ 999 mls/hr IV ASDIRECTED [facility] Last Admin: 04/16/17 19:22 Dose: 999 mls/hr Piperacillin Sod/Tazobactam (Sod 3.375 gm/ Sodium Chloride) 50 mls @ 100 mls/ hr IV Q6H [facility] Last Admin: 04/17/17 02:47 Dose: 100 mls/hr Sodium Chloride (Normal Saline) 1,000 mls @ 125 mls/hr IV ASDIRECTED [facility] Last Admin: 04/17/17 06:47 Dose: 125 mls/hr Dextrose/Lactated Ringer's (Dextrose 5%-Lactated Ringers) 1,000 mls @ 125 mls/ hr IV ASDIRECTED [facility] Last Admin: 04/17/17 09:57 Dose: 125 mls/hr Aztreonam/Dextrose 1 gm/ (Premix) 50 mls @ 100 mls/hr IV ONCALL ONE Stop: 04/17/17 12:29 Last Admin: 04/17/17 13:58 Dose: Not Given Sodium Chloride (Normal Saline) Confirm Administered Dose 10 mls @ as directed .ROUTE .STK-MED ONE Stop: 04/17/17 11:07 Dextrose/Lactated Ringer's (Dextrose 5%-Lactated Ringers) 1,000 mls @ 150 mls/ hr IV ASDIRECTED [facility] Last Admin: 04/18/17 07:40 Dose: 150 mls/hr Sodium Chloride (Normal Saline) 500 mls @ 500 mls/hr IV .BOLUS ONE Stop: 04/17/17 20:13 Last Admin: 04/17/17 19:19 Dose: 500 mls/hr Dextrose/Lactated Ringer's (Dextrose 5%-Lactated Ringers) 1,000 mls @ 100 mls/ hr IV ASDIRECTED [facility] Lidocaine HCl (Xylocaine 2% Jelly) 10 ml MUCMEM ONETIME ONE Stop: 04/17/17 19:31 Last Admin: 04/17/17 19:52 Dose: 10 ml Meropenem (Merrem) Confirm Administered Dose 500 mg .ROUTE .STK-MED ONE Stop: 04/17/17 11:07 Last Admin: 04/17/17 11:13 Dose: 500 mg Naloxone HCl (Narcan) 0.4 mg IVPUSH Q2M PRN PRN Reason: Respiratory Distress Naloxone HCl (Narcan) 0.1 mg IV ASDIRECTED PRN PRN Reason: decreased respiratory rate Neostigmine Methylsulfate (Neostigmine) Confirm Administered Dose 5 mg .ROUTE .STK-MED ONE Stop: 04/17/17 09:37 Ondansetron HCl (Zofran) 4 mg IVPUSH ONETIME ONE Stop: 04/16/17 16:57 Last Admin: 04/16/17 16:58 Dose: 4 mg Ondansetron HCl (Zofran) Confirm Administered Dose 4 mg .ROUTE .STK-MED ONE Stop: 04/16/17 16:58 Last Admin: 04/16/17 17:00 Dose: Not Given Ondansetron HCl (Zofran Odt) 4 mg PO Q6H PRN PRN Reason: Nausea able to take PO Ondansetron HCl (Zofran) Confirm Administered Dose 4 mg .ROUTE .STK-MED ONE Stop: 04/17/17 09:37 Pantoprazole Sodium (Protonix Iv) 40 mg IVPUSH Q24H [facility] Last Admin: 04/17/17 20:00 Dose: 40 mg Propofol (Diprivan 20 Ml) Confirm Administered Dose 200 mg .ROUTE .STK-MED ONE Stop: 04/17/17 09:37 Rocuronium [place] (Zemuron) Confirm Administered Dose 50 mg .ROUTE .STK-MED ONE Stop: 04/17/17 09:37 Scopolamine (Transderm-Scop) Confirm Administered Dose 1.5 mg .ROUTE .STK-MED ONE Stop: 04/17/17 10:28 Succinylcholine Chloride (Succinylcholine In Ns Pf) Confirm Administered Dose 200 mg .ROUTE .STK-MED ONE Stop: 04/17/17 09:37 - Exam Wound/Incisions: dressing dry and intact General: alert, oriented Neck: supple Lungs: Clear to auscultation, Normal respiratory effort Cardiovascular: Regular Rate, Regular Rhythm Abdomen: bowel sounds present, soft Extremities: no edema Skin: warm, dry, intact Psy/Mental Status: alert, normal affect, normal mood - Problem List Review Problem List Initiated/Reviewed/Updated: Yes - My Orders Last 24 Hours: Active Orders 24 hr Category Date Time Status Bladder Scan [RC] ONETIME Care 04/17/17 18:53 Active DC [place] Catheter [Urinary Catheter Removal] [RC] Per Care 04/19/17 04:00 Active Unit Routine IS (RT) [RT Incentive Spirometry] [RC] Q1HWA Care 04/17/17 14:32 Active Overnight Pulse Oximetry [RC] Click To Edit Care 04/17/17 14:31 Active Turn, Cough, Deep Breathe [RC] Q1HWA Care 04/17/17 14:31 Active Urinary Catheter Assessment [RC] ASDIRECTED Care 04/17/17 19:15 Active Urinary Catheter Insertion [Insert Urinary Catheter] [ Care 04/17/17 19:15 Ordered OM.PC] Q24H Consistent Carbohydrate Diet [DIET] Diet 04/18/17 Breakfast Active CBC W/O DIFF,HEMOGRAM [HEME] Timed Lab 04/19/17 04:00 Ordered COMPREHENSIVE METABOLIC PN,CMP [CHEM] Timed Lab 04/19/17 04:00 Ordered CULTURE ANAEROBIC [RM] Routine Lab 04/17/17 12:14 Received CULTURE ANAEROBIC [RM] Routine Lab 04/17/17 12:14 Received CULTURE WOUND + SMEAR [RM] Routine Lab 04/17/17 12:14 Results CULTURE WOUND + SMEAR [RM] Routine Lab 04/17/17 12:14 Results GLUCOSE POC LAB TO COLLECT [POC] QIDACANDBED Lab 04/18/17 16:30 Ordered GLUCOSE POC LAB TO COLLECT [POC] QIDACANDBED Lab 04/18/17 21:00 Ordered GLUCOSE POC LAB TO COLLECT [POC] QIDACANDBED Lab 04/19/17 07:30 Ordered GLUCOSE POC LAB TO COLLECT [POC] QIDACANDBED Lab 04/19/17 11:30 Ordered GLUCOSE POC LAB TO COLLECT [POC] QIDACANDBED Lab 04/19/17 16:30 Ordered GLUCOSE POC LAB TO COLLECT [POC] QIDACANDBED Lab 04/19/17 21:00 Ordered GLUCOSE POC LAB TO COLLECT [POC] QIDACANDBED Lab 04/20/17 07:30 Ordered GLUCOSE POC LAB TO COLLECT [POC] QIDACANDBED Lab 04/20/17 11:30 Ordered GLUCOSE POC LAB TO COLLECT [POC] QIDACANDBED Lab 04/20/17 16:30 Ordered GLUCOSE POC LAB TO COLLECT [POC] QIDACANDBED Lab 04/20/17 21:00 Ordered GLUCOSE POC LAB TO COLLECT [POC] QIDACANDBED Lab 04/21/17 07:30 Ordered GLUCOSE POC LAB TO COLLECT [POC] QIDACANDBED Lab 04/21/17 11:30 Ordered GLUCOSE POC LAB TO COLLECT [POC] QIDACANDBED Lab 04/21/17 16:30 Ordered GLUCOSE POC LAB TO COLLECT [POC] QIDACANDBED Lab 04/21/17 21:00 Ordered GLUCOSE POC LAB TO COLLECT [POC] QIDACANDBED Lab 04/22/17 07:30 Ordered MAGNESIUM [CHEM] Timed Lab 04/19/17 04:00 Ordered PHOSPHORUS [CHEM] Timed Lab 04/19/17 04:00 Ordered Acetaminophen [Tylenol Extra Strength] Med 04/18/17 07:51 Active 1,000 mg PO Q4H PRN Albuterol [Ventolin HFA] Med 04/18/17 08:01 Active 0 gm INH Q4H PRN Apixaban [Eliquis] Med 04/18/17 09:00 Active 5 mg PO BID Aztreonam/Dextrose-Water [Azactam in Dextrose,Iso- Med 04/17/17 18:00 Active Osmotic 1 GM/50 ML] 1 gm Premix Bag 1 bag IV Q8H HYDROmorphone [Dilaudid] Med 04/18/17 07:49 Active 2 - 4 mg PO Q4H PRN Nitroglycerin [Nitrostat] Med 04/18/17 08:01 Active 0.4 mg SL Q5M PRN Ondansetron [Zofran ODT] Med 04/18/17 07:52 Active 4 mg PO Q4H PRN Sennosides [Senna] Med 04/18/17 08:01 Active 8.6 mg PO BID PRN Sodium Chloride 0.9% [Normal Saline] 1,000 ml Med 04/18/17 10:30 Active IV ASDIRECTED Tamsulosin [Flomax] Med 04/18/17 09:00 Active 0.4 mg PO BIDPC Torsemide [Demadex] Med 04/18/17 08:01 Active 20 mg PO DAILY PRN atorvaSTATin [Lipitor] Med 04/17/17 21:00 Active 20 mg PO BEDTIME glipiZIDE [Glucotrol] Med 04/18/17 09:00 Active 5 mg PO BIDAC Pulse Oximetry Continuous Monitoring [OM.PC] Routine Oth 04/17/17 14:31 Ordered Medication Orders Acetaminophen (Tylenol) 650 mg PO Q4H PRN PRN Reason: Pain (Mild 1-3)/fever Acetaminophen (Tylenol Extra Strength) 1,000 mg PO Q4H PRN PRN Reason: Pain Albuterol (Proventil Neb Soln) 2.5 mg NEB Q4H PRN PRN Reason: Shortness Of Breath/wheezing Albuterol (Ventolin Hfa) 0 gm INH Q4H PRN PRN Reason: Dyspnea Apixaban (Eliquis) 5 mg PO BID [facility] Last Admin: 04/18/17 09:30 Dose: 5 mg Atorvastatin Calcium (Lipitor) 20 mg PO BEDTIME [facility] Last Admin: 04/17/17 20:14 Dose: 20 mg Gabapentin (Neurontin) 1,200 mg PO BEDTIME [facility] Last Admin: 04/17/17 20:00 Dose: 1,200 mg Admin: 04/16/17 21:08 Dose: 1,200 mg Glipizide (Glucotrol) 5 mg PO BIDAC [facility] Last Admin: 04/18/17 09:30 Dose: 5 mg Hydromorphone HCl (Dilaudid) 2 - 4 mg PO Q4H PRN PRN Reason: Pain Piperacillin/Tazobactam/ (Dextrose 3.375 gm/ Premix) 50 mls @ 100 mls/hr IV Q6H [facility] Last Admin: 04/18/17 08:27 Dose: 100 mls/hr Admin: 04/18/17 01:02 Dose: 100 mls/hr Admin: 04/17/17 20:04 Dose: 100 mls/hr Admin: 04/17/17 14:54 Dose: 100 mls/hr Admin: 04/17/17 08:34 Dose: 100 mls/hr Aztreonam/Dextrose 1 gm/ (Premix) 50 mls @ 100 mls/hr IV Q8H [facility] Last Admin: 04/18/17 09:30 Dose: 100 mls/hr Infusion: 04/18/17 02:36 Dose: 100 mls/hr Admin: 04/18/17 02:06 Dose: 100 mls/hr Infusion: 04/17/17 19:00 Dose: 100 mls/hr Admin: 04/17/17 18:30 Dose: 100 mls/hr Sodium Chloride (Normal Saline) 1,000 mls @ 25 mls/hr IV ASDIRECTED [facility] Insulin Aspart (Novolog) 0 unit SUBCUT ASDIRECTED [facility] PRN Reason: Protocol Last Admin: 04/18/17 08:28 Dose: 4 unit Admin: 04/17/17 21:29 Dose: 4 unit Admin: 04/17/17 18:12 Dose: 4 unit Admin: 04/17/17 15:28 Dose: 3 unit Admin: 04/16/17 21:21 Dose: 1 unit Isosorbide Mononitrate (Imdur) 60 mg PO DAILY [facility] Last Admin: 04/18/17 08:17 Dose: 60 mg Admin: 04/17/17 08:37 Dose: 60 mg Lorazepam (Ativan) 0.5 - 1 mg IVPUSH Q4H PRN PRN Reason: Nausea/Vomiting Last Admin: 04/17/17 08:30 Dose: 1 mg Losartan Potassium (Cozaar) 25 mg PO BID [facility] Last Admin: 04/18/17 08:17 Dose: 25 mg Admin: 04/17/17 20:03 Dose: 25 mg Admin: 04/17/17 08:36 Dose: 25 mg Admin: 04/16/17 21:08 Dose: 25 mg Nitroglycerin (Nitrostat) 0.4 mg SL Q5M PRN PRN Reason: Chest Pain Ondansetron HCl (Zofran) 4 mg IV Q6H PRN PRN Reason: Nausea/Vomiting Ondansetron HCl (Zofran Odt) 4 mg PO Q4H PRN PRN Reason: Nausea/Vomiting Polyethylene Glycol (Miralax) 17 gm PO DAILY PRN PRN Reason: Constipation Senna (Senna) 8.6 mg PO BID PRN PRN Reason: Constipation Senna/Docusate Sodium (Senna Plus) 1 tab PO BID PRN PRN Reason: Constipation Tamsulosin [facility] (Flomax) [facility] Last Admin: 04/18/17 09:30 Dose: 0.4 mg Torsemide (Demadex) 20 mg PO DAILY PRN PRN Reason: Edema - Assessment Assessment (Free Text/Narrative):: Laparoscopic cholecystectomy - Plan Plan (Free Text/Narrative):: 1. Transition to a regular diet 2. d/c EVALUATION SPECIALIST and begin oral Dilaudid PRN 3. Initiate Flomax this a.m. and d/c [place] tomorrow 4. Acetaminophen PRN pain 5. Zofran PRN nausea 6. Glipezide 5 mg PO BID ac 7. Lasix 10mg IV this a.m. and dose again in p.m. 8. Restart Eliquis 5mg PO BID 9. Consult Dr. Lal on diabetes
[2017-04-18] MEDS: HYDROmorphone 2 MG Tab PO PRN ×2 (14:44→20:32)
[2017-04-18] MEDS: atorvaSTATin 20 MG Tab PO SCH (20:04)
[2017-04-18] MEDS: Gabapentin 400 MG Cap PO SCH (20:04)
[2017-04-19] MEDS: Aztreonam/Dextrose-Water 1 GM in Premix Bag 1 BAG IV SCH ×2 (02:28→09:06)
[2017-04-19] MEDS: Piperacillin/Tazobactam/Dext 3.375 GM in Premix Bag 1 BAG IV SCH ×2 (02:28→08:11)
[2017-04-19] MEDS: HYDROmorphone 2 MG Tab PO PRN ×2 (02:34→09:06)
[2017-04-19 07:35] VITALS: BP 165/87
[2017-04-19] MEDS: glipiZIDE 5 MG Tab PO SCH (08:02)
[2017-04-19] MEDS: Losartan 50 MG Tab PO SCH (08:03)
[2017-04-19] MEDS: Isosorbide Mononitrate 30 MG Tab.ER PO SCH (08:03)
[2017-04-19] MEDS: Tamsulosin 0.4 MG Cap.ER PO SCH (08:03)
[2017-04-19] MEDS: Apixaban 5 MG Tab PO SCH (08:03)
[2017-04-19] MEDS: Insulin Aspart 100 Units/ML 3 ML Pen SUBCUT SCH (08:05)
--- NOTE | 2017-04-20 04:06 | DISCH ---
ADMISSION DIAGNOSES: 1. Acute cholecystitis. 2. Mild renal insufficiency. 3. Acute kidney injury. 4. Coronary artery disease. 5. Paroxysmal atrial fibrillation. 6. Diabetes type 2. 7. History of quadruple bypass surgery. DISCHARGE DIAGNOSIS: Laparoscopic cholecystectomy, 04/17/2017. HISTORY: Leandro Bill is a 66-year-old male, who presented to the emergency room on 04/17/2016 with severe abdominal pain. After preoperative evaluation and discussion of possible risks and possible complications, he wished to proceed with surgical procedure. HOSPITAL COURSE: Leandro had his surgery on 04/17/2016. He had no operative complications. On postop day #1, he was changed to oral pain medication, started on a full liquid diet, advanced to regular. His oral medications were restarted. On postop day #2, his vital signs were stable. Activity was good. Oral intake adequate and he was able to be discharged to home. On postop day 1, Leandro was unable to void. His catheter was replaced and was taken out this a.m., 04/19/2017. At time of hospital rounds, he has been able to void. PHYSICAL EXAMINATION: GENERAL: Leandro Bill is a 66-year-old male. He is alert and orientated. SKIN: Warm and dry. Color is good. VITAL SIGNS: Height is 6 feet 2 inches. Weight is 240 pounds. TPR is 98.1, 67, 16. Blood pressure 165/87. HEENT: Negative. NECK: Supple. HEART: Regular rate and rhythm. LUNGS: Clear. ABDOMEN: Sutures in place. ANNETTE drain 1 and 2 were removed. 4x4s over ANNETTE drain sites and abdominal binder has been on. EXTREMITIES: Without peripheral edema. DISPOSITION: Discharged home. CONDITION: Stable and improving. FOLLOWUP APPOINTMENT: Maryuri Alcazar PA-C, on 04/27/2017 at 10:00 a.m. MEDICATIONS: Home medications: 1. Tylenol Extra Strength 1000 mg q.4 hours p.r.n. pain. 2. Augmentin 875 mg 1 oral twice daily, #10. 3. Flomax 0.4 mg oral twice daily after meals, #60. He is to resume taking Ventolin inhaler 2 puffs every 4 hours p.r.n. shortness of breath, apixaban (Eliquis) 5 mg oral twice daily, gabapentin (Neurontin) 1200 mg oral at bedtime, isosorbide mononitrate (Imdur) 75 mg oral daily, losartan (Cozaar) 25 mg oral twice daily, meloxicam 15 mg oral daily, nitroglycerin spray 0.4 mg sublingual every 5 minutes p.r.n. chest pain as directed, Zantac 150 mg oral daily, sennosides 0.6 mg oral as directed p.r.n. constipation, torsemide 20 mg oral daily, atorvastatin calcium 20 mg oral daily, glipizide 5 mg oral twice daily before meals, and tramadol 50 mg oral every 6 hours p.r.n. pain. DIET AFTER DISCHARGE: Usual diet as tolerated. Diabetic diet. Drink 8 to 10 glasses of water a day. ACTIVITY: No lifting greater than 10 pounds for 2 weeks, and then as tolerated. Activity, walk short distance 6 times daily inside of your home. DISCHARGE INSTRUCTIONS: Driving, do not drive while on pain medication. Shower/bathing, may shower. Notify provider if fever, nausea, or vomiting. Wound incision care, keep site clean and dry. Wear abdominal binder for 2 weeks, and as tolerated. Use incentive spirometer 10 times every hour while awake.
--- NOTE | 2017-04-23 14:01 | OR ---
DATE OF PROCEDURE: 04/17/2017 PREOPERATIVE DIAGNOSIS: Acute cholecystitis. POSTOPERATIVE DIAGNOSES: 1. Acute necrotizing cholecystitis with pericholecystic abscess. 2. Peritoneal nodule over omentum. OPERATIVE PROCEDURE: Diagnostic laparoscopy with: 1. Laparoscopic cholecystectomy (90780). 2. Drainage of pericholecystic abscess (02003). 3. Excision of peritoneal nodule overlying omentum (84867). ANESTHESIA: General. SCREEN PRINTER: BRITTANY Clarke student. INDICATION FOR PROCEDURE: This is a 66-year-old male presenting with an acute cholecystitis. He is admitted overnight for hydration and antibiotics. The plan is to proceed with a cholecystectomy at this time. Plan is to be laparoscopic approach. He is aware of possible need for open approach, otherwise, potential risks of the procedure including bleeding, infection, injury to underlying viscera as well as possibility of cardiopulmonary, septic, or hemorrhagic complications leading to were all discussed, and the patient wishes to proceed. DETAILS OF PROCEDURE: The patient was taken to the operating room and placed in a supine position. After general endotracheal anesthesia was induced, the abdomen was prepped and draped. A transverse incision just to the right of the umbilicus was then made and carried down through the skin and subcutaneous tissue and the peritoneal cavity entered under direct vision with Optiview trocar. The peritoneal cavity was inflated to 15 mmHg pressure of CO2 after which the laparoscope was then reinserted. No underlying trocar insertion site injuries were seen. Following this, a 12 mm epigastric trocar as well as two 5 mm right upper quadrant trocars were placed and the abdomen examined. The patient was noted initially to have a densely adherent omentum to the gallbladder as well as the overlying liver. This was well formed scar indicating this patient probably had previous attacks of cholecystitis earlier. This was taken down with Harmonic scalpel. As one began to view gallbladder, much of it was necrotic with a green edematous appearance. Once the gallbladder was freed up superiorly and inferiorly and one approached the posterior aspect where the pericholecystic abscess was identified, this contained some thin purulent material with peritonitis diffusely within that region behind the gallbladder. This was cultured as it was aspirated. One additional finding during the course of dissection was an 8 mm nodular mass overlying the omentum. This was excised and sent as a separate specimen as well. At this point, the gallbladder was opened to allow it to be decompressed and manage. This dissection began on the area of the gallbladder neck, eventually came around the gallbladder neck and cystic duct junction. Once that area as well as cystic artery were both identified, the cystic duct and gallbladder neck junction was initially divided with a NIKI [place] load. This was felt to be more satisfactory closure than we would get with clips or sutures given the friability of that tissue at that level. The area was then taken with 3 clips approximated and divided with Harmonic scalpel. The gallbladder was then dissected off the gallbladder bed using Harmonic scalpel as well and delivered through the epigastric site which did need to be enlarged somewhat to allow its removal. At this point, no further problems noted. The area was irrigated with meropenem-containing saline solution. Two Samuel-Fiore drains were then placed, one in the area of the gallbladder fossa and one over the diaphragm on the posterior aspect of the right lobe of the liver, and the midline fascia 12 mm sites were closed with 0 Vicryl stitch and the skin with 4-0 Vicryl skin stitch. Dressing applied. The patient was taken to the recovery room in satisfactory condition. Alphonso Rascon MD /[id number]
== END 2017-04-19 10:45 | disposition home or self-care (01) | DRG 418 ==
LOC: JP.ED 15:58 → JP.MS 19:12
PROVIDERS: ADMIT Internal Medicine; ATTEND Internal Medicine
PROC: 0W9J4ZX Drainage of Pelvic Cavity, Percutaneous Endoscopic Approach, Diagnostic (ICD-10-PCS; principal; 2017-04-17)
PROC: 0DBW4ZX Excision of Peritoneum, Percutaneous Endoscopic Approach, Diagnostic (ICD-10-PCS; principal; 2017-04-17)
PROC: 0FT44ZZ Resection of Gallbladder, Percutaneous Endoscopic Approach (ICD-10-PCS; principal; 2017-04-17)
DX: K81.0 Acute cholecystitis (principal); N17.9 Acute kidney failure, unspecified; E86.0 Dehydration; N18.9 Chronic kidney disease, unspecified; E11.22 Type 2 diabetes mellitus with diabetic chronic kidney disease; I50.9 Heart failure, unspecified; Z87.891 Personal history of nicotine dependence; I25.10 Atherosclerotic heart disease of native coronary artery without angina pectoris; I48.0 Paroxysmal atrial fibrillation; Z79.01 Long term (current) use of anticoagulants; Z79.84 Long term (current) use of oral hypoglycemic drugs; R33.9 Retention of urine, unspecified; Z95.1 Presence of aortocoronary bypass graft; Z96.659 Presence of unspecified artificial knee joint; Z96.619 Presence of unspecified artificial shoulder joint; Z79.82 Long term (current) use of aspirin; K66.8 Other specified disorders of peritoneum
CPT/HCPCS: 36415; 71010 ×2; 74176; 80053; 82150; 82962; 83690; 85025; 86140; 93005; 93010; 96361; 96374; 96375; 99285; J1170 ×2; J2405; J7040; 81001; 83735; 83880; 84100; 85027; 87070; 87075; 87205; 88304; 88305; 94762; A9270-GY; C9113; J1100; J1940; J2060; J2185; J2543; J2704; J3010; J3490; J7042; J7050

== ENCOUNTER 2019-01-24 06:29 | Day surgery (SDC) | payer BC, MEDICARE ==
--- OUTSIDE RECORDS SUMMARY | 2019-01-21 14:07 | XMSREPORT | Referral Summary ---
:1950 Author Organization [facility] Address [facility] [place] [address] Care Team Providers Name Role Phone Ayo Dye MD Primary Care Provider Provider, No Attributed RESOURCE Attributed Provider Unavailable Reason for Referral Transitions of Care (Routine) Status Reason Specialty Diagnoses / Referred By Referred To Procedures Contact Contact New Request Patient Diagnoses Screening for colon cancer Deacon Salazar Chi Preference D, MD [place] [address] [place] [address] [address] Phone: [facility] [phone] [place] [address] Fax: Reason for Visit Reason Comments Medical Question Encounter Details Date Type Department Care Team Description 01/16/2019 Telephone [facility] [place] Deacon Salazar MD Medical Question Family Medicine [address] [place] [address] [place], [place] [address] [place] [address] Allergies Active Allergy Reactions Severity Noted Date Comments Codeine Other (Specify in 05/25/2012 Sick to stomach Comments) Fentanyl Other (Specify in 03/28/2016 Pt states he feels Comments) funny when on he has this medication. Hydrocodone Nausea and Vomiting 05/25/2012 Morphine Sulfate Other (Specify in 05/25/2012 Sick to stomach Comments) Other: See Comments Other (Specify in 03/26/2017 Can take oxycodone Comments) for the first week postop and then switch to tramadol Hydrocodone-Acetaminoph Other (Specify in 05/25/2012 "feels fuzzy" en Comments) "feels fuzzy" documented as of this encounter (statuses as of 01/16/2019) Medications Medication Sig Dispensed Refills Start Date End Date Status gabapentin Take 1,200 mg by 0 08/30/2015 Active (NEURONTIN) 600 mg mouth every night tablet at bedtime albuterol HFA Inhale 2 puffs 1 Inhaler 0 11/16/2016 Active (PROVENTIL,PROAIR,VE orally Every 4 NTOLIN) 108 (90 hours as needed BASE) MCG/ACT for shortness of inhalerIndications: breath Shake well Chest pain, before using. unspecified type, Paroxysmal atrial fibrillation, Dyspnea on exertion nitroglycerin 1 spray Every 5 0 02/16/2015 Active (NITROLINGUAL) 0.4 minutes as needed mg/spray SOLN for chest pain vitamin D3, Take 1 capsule 30 capsule 0 02/13/2017 Active cholecalciferol, (2,000 Units) by 2000 unit mouth 1 time per capsuleIndications: day Persistent proteinuria acetaminophen Take 1,000 mg by 0 Active (TYLENOL) 500 mg mouth every night tabletIndications: at bedtime Paroxysmal atrial fibrillation, Essential hypertension, CKD (chronic kidney disease) stage 3, GFR 30-59 ml/min, Ischemic cardiomyopathy, Postsurgical aortocoronary bypass status glipiZIDE Take 0.5 tablets 90 tablet 0 05/10/2017 Active (GLUCOTROL) 5 mg (2.5 mg) by mouth tabletIndications: 2 times a day with Paroxysmal atrial meals fibrillation, Essential hypertension, CKD (chronic kidney disease) stage 3, GFR 30-59 ml/min, Ischemic cardiomyopathy, Postsurgical aortocoronary bypass status MAGNESIUM PO Take 400 mg by 0 02/06/2018 Active mouth 1 time per day apixaban (ELIQUIS) 5 Take 1 tablet (5 180 tablet 3 09/10/2018 Active MG mg) by mouth 2 tabletIndications: times a day Atrial Fibrillation Indications: Atrial Fibrillation atorvaSTATin Take 1 tablet (20 90 tablet 3 09/10/2018 Active (LIPITOR) 20 mg mg) by mouth 1 tabletIndications: time per day CKD (chronic kidney disease) stage 3, GFR 30-59 ml/min, Paroxysmal atrial fibrillation, Essential hypertension, Postsurgical aortocoronary bypass status, New onset a-fib, Ischemic cardiomyopathy isosorbide Take 3 tablets (90 540 tablet 4 09/17/2018 2019 Active mononitrate (IMDUR) mg) by mouth 2 30 mg SR tablet (24 times a day hr)Indications: Ischemic cardiomyopathy carVEDilol (COREG) TAKE 1 TABLET BY 180 tablet 1 10/14/2018 Active 25 mg MOUTH TWICE DAILY tabletIndications: WITH MEALS PAF (paroxysmal atrial fibrillation), Essential hypertension torsemide (DEMADEX) Take 0.5 tablets 90 tablet 3 11/26/2018 Active 20 mg (10 mg) by mouth 1 tabletIndications: time per day Chronic systolic CHF (congestive heart failure) calcitriol Take 1 capsule 90 capsule 4 11/26/2018 12/01/2019 Active (ROCALTROL) 0.25 mcg (0.25 mcg) by capsuleIndications: mouth 1 time per Chronic systolic CHF day (congestive heart failure) benzonatate Take 1-2 capsules 42 capsule 3 01/09/2019 Active (TESSALON) 100 mg (100-200 mg) by capsuleIndications: mouth 3 times a Cough day as needed for cough codeine-guaiFENesin Take 5-10 mL by 240 mL 0 01/09/2019 Active 10mg-100mg/5mL oral mouth every 4 to 6 syrupIndications: hours as needed Cough for cough Cough documented as of this encounter (statuses as of 01/16/2019) Active Problems Problem Noted Date Shortness of breath 03/19/2018 On apixaban therapy 03/19/2018 Status post total right knee replacement 03/29/2017 S/P total knee arthroplasty 03/29/2017 Red blood cell antibody positive 03/27/2017 Overview: Anti-M (cold) identified on 03/23/2017 LABORATORY FGO SC Not usually Clinically significant GERD (gastroesophageal reflux disease) 03/23/2017 Overview: On Ranitadine DDD (degenerative disc disease), lumbar 03/22/2017 Overview: Post laminectomy pain CKD (chronic kidney disease) stage 3, GFR 30-59 ml/min 03/22/2017 Paroxysmal atrial fibrillation 08/21/2016 Overview: Cardioversion 10/27; On Apixaban History of bicuspid aortic valve 02/24/2014 Ischemic cardiomyopathy 07/29/2012 Overview: Stress Echo Septal and IW hypokineses, LVEF 09/19/16 45% Cath 09/29/16, patent grafts, medical management Postsurgical aortocoronary bypass status 06/21/2010 Coronary atherosclerosis 06/15/2010 Overview: Stents x 7 from [id number] (approx), CABAG x 4 2009 [place]. Diabetes type 2, controlled 06/15/2010 Essential hypertension 06/15/2010 Other and unspecified hyperlipidemia 06/15/2010 documented as of this encounter (statuses as of 01/16/2019) Resolved Problems Problem Noted Date Resolved Date Essential hypertension, benign 12/29/2011 03/22/2017 Other specified forms of chronic ischemic heart disease 11/30/2011 03/22/2017 documented as of this encounter (statuses as of 01/16/2019) Immunizations Name Dates Previously Given Next Due FLU VACCINE 09/29/2016 MULTIDOSE(3YR+Fluzone/6MO+Flulaval,5YR+Afluria) Influenza Vaccine,unspecified 08/12/2015 Pneumococcal Conj PCV13 01/28/2018 Pneumococcal Polysaccharide PPSV23 08/18/2015, 10/16/2003 Zoster Live(Zostavax) 08/12/2015 documented as of this encounter Social History Tobacco Use Types Packs/Day Years Used Date Former Smoker Cigarettes 1 Quit: 11/12/1981 Smokeless Tobacco: Never Used Alcohol Use Drinks/Week oz/Week Comments Yes 14 Glasses of wine 8.4 "0-3 per day would be the max" Sex Assigned at Date Recorded Male 11/18/2018 10:27 AM [employer] Job Start Date Occupation Industry Not on file Not on file Not on file Travel History Travel Start Travel End No recent travel history available. documented as of this encounter Functional Status Functional Status Response Date of Assessment Is the person deaf or does he/she have serious difficulty No 05/22/2017 hearing? Is this person blind or does he/she have difficulty No 05/22/2017 seeing even when wearing glasses? Do you have difficulty with walking, balance, climbing No 05/23/2017 stairs, or had a fall in the last 3 months? Does the patient have difficulty dressing or bathing? No 03/26/2017 Because of a physical, mental, or emotional condition; No 03/26/2017 does this person have difficulty doing errands alone such as visiting a doctor's office or shopping? Cognitive Status Response Date of Assessment Because of a physical, mental, or emotional condition; No 03/26/2017 does this person have serious difficulty concentrating, remembering, or making decisions? documented as of this encounter Plan of Treatment Date Type Specialty Care Team Description 01/23/2019 Office Visit Diabetic Education Desire Kern, RN [address] [facility] [place] [address] 02/20/2019 Office Visit Nutrition Chiquita Verdugo, RD, LRD [address] [place], [place] [address] Name Priority Associated Diagnoses Order Schedule CLINIC REFERRAL ENDOSCOPY NON Routine Screening for colon cancer Ordered: ONE CHART documented as of this encounter Implants Implanted Type Area Slotter Operator Helper Device Shelf Model / Identifier Expiration Date Serial / Lot Cmnt Simplex P W Tobramyacin N [id number] Bx10/Ea - Sn/A Right: LEONA 03/11/2018 [id number] / Implanted: Qty: 2 on 03/29/2017 by Keny Millan MD KNEE N/A / [id number] Knee Tib Basetrlon Prim Stry#7 N 5520-B-700 Ea - Sn/A Right: LEONA [id number] / Implanted: Qty: 1 on 03/29/2017 by Keny Millan MD KNEE N/A / [id number] Knee Ptla Sym X3 34v09al N 5550-G-[id number] Ea - Sn/A Right: LEONA 2019 [id number] / Implanted: Qty: 1 on 03/29/2017 by Keny Millan MD KNEE N/A / [id number] Knee Fem Trlon Cr Stry Rt #6 N 5510-F-602 Ea - Sn/A Right: LEONA 12/15 [id number] / Implanted: Qty: 1 on 03/29/2017 by Keny Millan MD KNEE N/A / [id number] Knee Tib Nqfgvmfp9fmnl #7-11mm N 5530-G-[id number] Ea - Sn/A Right: LEONA [id number] / Implanted: Qty: 1 on 03/29/2017 by Keny Millan MD KNEE N/A / [id number] documented as of this encounter Visit Diagnoses Diagnosis Screening for colon cancer - Primary Special screening for malignant neoplasms, colon documented in this encounter
[2019-01-24] MEDS ORDERED: Sodium Chloride 0.9% 1,000 ML IV SCH (07:00)
[2019-01-24] MEDS ORDERED: fentaNYL 100 MCG/2 ML SDV ONE (07:24)
[2019-01-24] MEDS ORDERED: Propofol 200 MG/20 ML SDV ONE (07:24)
[2019-01-24] MEDS ORDERED: Midazolam 1 MG/ML 2 ML SDV ONE (07:24)
[2019-01-24 09:22] VITALS: BP 146/82
--- NOTE | 2019-01-24 12:52 | OR ---
DATE OF PROCEDURE: 01/24/2019 SURGEON: Morales Sanches MD PROCEDURE: Colonoscopy. FINDINGS: Diverticulosis, [id number], limited to sigmoid colon. PREOPERATIVE DIAGNOSIS: Screening colonoscopy for potential transplant candidate. POSTOPERATIVE DIAGNOSIS: Screening colonoscopy for potential transplant candidate. RISKS: Risks, benefits, alternatives, and limitations including, but not limited to infection, bleeding, and perforation were explained to the patient, who wished to proceed. PROCEDURE IN DETAIL: The patient was placed in left lateral decubitus position. Digital rectal exam was performed without abnormality. The scope was introduced and advanced atraumatically to the ileocecal valve. The scope was brought back through the ascending, transverse, descending colon, and retroflexed. No evidence of old or new blood. No masses. No evidence of colitis or other concerns. The diverticulosis would be described as [id number] and limited to sigmoid colon without evidence of diverticulitis. No abnormalities on retroflex. The patient tolerated the procedure well. Morales Sanches MD /[id number]
== END 2019-01-24 09:24 | disposition home or self-care (01) ==
LOC: JP.SDS 06:29
PROVIDERS: ATTEND Surgery
DX: Z12.11 Encounter for screening for malignant neoplasm of colon (principal); K57.30 Diverticulosis of large intestine without perforation or abscess without bleeding; E11.9 Type 2 diabetes mellitus without complications; K21.9 Gastro-esophageal reflux disease without esophagitis; I25.10 Atherosclerotic heart disease of native coronary artery without angina pectoris; Z95.1 Presence of aortocoronary bypass graft; Z76.82 Awaiting organ transplant status
CPT/HCPCS: G0121; J2250; J2704; J3010; J7030

== ENCOUNTER 2019-10-06 07:52 | Emergency (ER) | payer MEDICARE ==
--- NOTE | 2019-10-06 08:26 | EDM.PDOC ---
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 While outside after bending over and using the tomás he became lightheaded and fell, striking the back of his head and back on the ground. He managed to come back into the house and his knew something was wrong when he looked so pale and diaphoretic, he wanted to sit down. He has no loss of memory or loss of consciousness. He was complaining of mid back pain. He then asked his for nitroglycerin because he had some chest discomfort which was provided. They then managed to get him in the car and bring him in. On arrival he still has back and chest discomfort, a mild headache , and still feels lightheaded. Onset: Sudden Duration: Hour(s): (Within the last hour) Location: Reports: Head, Chest, Back Associated Symptoms: Reports: Confusion, Chest Pain, Diaphoresis, Headaches, Malaise, Weakness. Denies: Fever/Chills, Nausea/Vomiting, Shortness of Breath chest, back Pain Score (Numeric/FACES): 2 - Related Data Allergies Allergy/AdvReac Type Severity Reaction Status Date / Time acetaminophen [From Vicodin] Allergy Other Verified 10/06/19 07:58 codeine AdvReac Nausea Verified 10/06/19 07:58 fentanyl AdvReac Dizziness Verified 10/06/19 07:58 hydrocodone AdvReac Nausea and Verified 10/06/19 07:58 Vomiting morphine AdvReac Nausea Verified 10/06/19 07:58 Home Meds: Home Meds Albuterol [Ventolin HFA] 2 puff INH Q4H PRN 10/09/14 [History] Gabapentin [Neurontin] 600 mg PO TID 10/09/14 [History] Nitroglycerin [Nitrolingual [place]] 0.4 mg SL Q5M PRN 10/09/14 [History] Torsemide 10 mg PO DAILY PRN 10/09/14 [History] atorvaSTATin Calcium [Atorvastatin Calcium] 10 mg PO DAILY 10/09/14 [History] Apixaban [Eliquis] 5 mg PO BID 04/16/17 [History] Isosorbide Mononitrate [Imdur] 90 mg PO BID 04/16/17 [History] Calcitriol 0.25 mg PO DAILY 01/24/19 [History] Cholecalciferol (Vitamin D3) [Vitamin D3] 2,000 unit PO DAILY 01/24/19 [History] carvediloL [Carvedilol] 25 mg PO BID 01/24/19 [History] Insulin Lispro [Humalog] 5 units SQ ASDIRECTED 10/06/19 [History] Past Medical History HEENT History: Reports: Cataract Cardiovascular History: Reports: Angina, Bypass, Heart Failure, High Cholesterol , SOB on Exertion, Stents, Syncope Gastrointestinal History: Reports: Other (See Below) Other Gastrointestinal History: abdominal hernia Genitourinary History: Reports: Other (See Below) Other Genitourinary History: renal insufficiency per patient Musculoskeletal History: Reports: None Neurological History: Reports: None Endocrine/Metabolic History: Reports: Diabetes, Type II, Obesity/BMI 30+, Vitamin D Deficiency Hematologic History: Reports: B12 Deficiency - Infectious Disease History Infectious Disease History: Reports: Chicken Pox, Measles, Mononucleosis, Mumps , Rubella - Past Surgical History HEENT Surgical History: Reports: Cataract Surgery Cardiovascular Surgical History: Reports: Other (See Below) Other Cardiovascular Surgeries/Procedures: quadrupal bypass 2009 GI Surgical History: Reports: Cholecystectomy, EGD Male Surgical History: Reports: None, Vasectomy Endocrine Surgical History: Reports: None Neurological Surgical History: Reports: Lumbar Spine Musculoskeletal Surgical History: Reports: Knee Replacement, Shoulder Replacement, Other (See Below) Other Musculoskeletal Surgeries/Procedures:: finger surgery. laser spine surgery Social & Family History - Family History Cardiac: Reports: CAD GI: Reports: Other (See Below) Musculoskeletal: Reports: Arthritis, Back pain, Chronic Endocrine/Metabolic: Reports: Diabetes, Type I, Diabetes, type II Oncologic: Reports: Breast, Lung - Tobacco Use Smoking Status *Q: Never Smoker - Caffeine Use Caffeine Use: Reports: Coffee Caffeine Use Comment: 2-3 cups coffee/daily - Alcohol Use Days Per Week of Alcohol Use: 7 Number of Drinks Per Day: 1 Total Drinks Per Week: 7 - Recreational Drug Use Recreational Drug Use: No ED ROS GENERAL - Review of Systems Review Of Systems: See Below Constitutional: Denies: Fever, Chills, Malaise HEENT: Denies: Vision Change Respiratory: Denies: Shortness of Breath Cardiovascular: Reports: Chest Pain, Lightheadedness, Syncope. Denies: Palpitations GI/Abdominal: Denies: Abdominal Pain, Nausea, Vomiting Musculoskeletal: Reports: Neck Pain, Back Pain Skin: Reports: Pallor, Diaphoresis Neurological: Reports: Confusion, Headache ED EXAM, GENERAL - Physical Exam Exam: See Below Exam Limited By: No Limitations General Appearance: Alert, Mild Distress (Looks fairly uncomfortable, anxious) Eye Exam: Bilateral Eye: Normal Inspection Head: Other (Superficial abrasion is on the occipital scalp, no hematoma) Neck: Other (Mild discomfort with movement, no focal bony tenderness) Respiratory/Chest: No Respiratory Distress, Lungs Clear, Other (Chest is tender with lateral compression and palpation of the sternum) Cardiovascular: Regular Rate, Rhythm. No: Extra Beats GI/Abdominal: Soft, Non-Tender Back Exam: Other (Patient was sat up and back was examined. No visual evidence of trauma. However on palpation and percussion he complains of thoracic pain.) Neurological: Alert, Oriented, Other (Generalized weakness but no asymmetry) Skin Exam: Diaphoretic, Pallor EKG INTERPRETATION Rhythm: NSR Rate (Beats/Min): 59 ST-T: Normal Comparison: No Change Course - Vital Signs Last Recorded V/S: Last Vital Signs Temp 96.0 F 10/06/19 07:56 Pulse 61 10/06/19 08:51 Resp 7 L 10/06/19 08:51 BP 179/94 H 10/06/19 08:51 Pulse Ox 92 L 10/06/19 08:51 Orthostatic Blood Pressure [ 174/78 Standing] Orthostatic Blood Pressure [ 174/88 Sitting] Orthostatic Blood Pressure [ 158/95 Supine] - Orders/Labs/Meds Orders: Active Orders 24 hr Category Date Time Status EKG Documentation Completion [RC] ASDIRECTED Care 10/06/19 08:05 Active EKG 12 Lead [EK] Routine Ther 10/06/19 08:05 Ordered Labs: Laboratory Tests 10/06/19 10/06/19 Range/Units 08:09 08:09 WBC 6.7 (4.5-11.0) K/uL RBC 3.72 L (4.30-5.90) M/uL Hgb 11.1 L (12.0-15.0) g/dL Hct 34.3 L (40.0-54.0) % MCV 92 (80-98) fL MCH 30 (27-31) pg MCHC 32 (32-36) % Plt Count 162 (150-400) K/uL Neut % (Auto) 80 H (36-66) % Lymph % (Auto) 7 L (24-44) % Bacon % (Auto) 11 H (2-6) % Eos % (Auto) 2 (2-4) % Baso % (Auto) 0 (0-1) % Sodium 140 (140-148) mmol/L Potassium 4.3 (3.6-5.2) mmol/L Chloride 104 (100-108) mmol/L Carbon Dioxide 24 (21-32) mmol/L Anion Gap 12.1 (5.0-14.0) mmol/L BUN 60 H D (7-18) mg/dL Creatinine 2.9 H (0.8-1.3) mg/dL Est Cr Clr Drug Dosing 27.93 mL/min Estimated GFR (MDRD) 22 L (>60) Glucose 197 H (74-106) mg/dL Calcium 8.4 L (8.5-10.1) mg/dL Total Bilirubin 0.9 (0.2-1.0) mg/dL AST 22 (15-37) U/L ALT 27 (12-78) U/L Alkaline Phosphatase 78 (46-116) U/L Troponin I 0.041 (0.000-0.056) ng/mL Total Protein 6.3 L (6.4-8.2) g/dL Albumin 3.1 L (3.4-5.0) g/dL Globulin 3.2 (2.3-3.5) g/dL Albumin/Globulin Ratio 1.0 L (1.2-2.2) - Re-Assessments/Exams Free Text/Narrative Re-Assessment/Exam: 10/06/19 08:26 EKG does not show acute ST changes. Blood was drawn for CBC, CMP and troponin, CT of the head neck and chest was done without contrast. 10/06/19 09:39 All labs are reassuring, CT the head neck and chest showed no acute trauma findings. He continued to slowly feel better but still had persistent dizziness. He wants to try to go home so we will see if he can ambulate. 10/06/19 10:14 Patient was able to get up and ambulate, still felt dizzy but is orthostatic blood pressures were stable. He wants to try to go home. He will have aches and pains but if he has uncontrolled pain or persistent nausea and vomiting he should return. Consider rechecking next week if not improving satisfactorily. Departure - Departure Time of Disposition: 10:40 Disposition: Home, Self-Care 01 Clinical Impression: Vasovagal syncope Concussion Qualifiers: Encounter type: initial encounter Loss of consciousness presence/duration: with LOC of 30 min or less Qualified Code(s): S06.0X1A - Concussion with loss of consciousness of 30 minutes or less, initial encounter Renal failure Qualifiers: Renal failure chronicity: chronic Chronic kidney disease stage: stage 4 (severe ) Qualified Code(s): N18.4 - Chronic kidney disease, stage 4 (severe) - Discharge Information Instructions: Syncope, Cdir-cy-Cpyl Referrals: Deacon Salazar MD [Primary Care Provider] - Forms: ED Department Discharge Additional Instructions: Rest, fluids, continue your regular medications and increase activity as tolerated. Return anytime if worsening such as persistent nausea and vomiting or uncontrolled pain. Consider rechecking in 5-7 days if not improving satisfactorily. - My Orders Last 24 Hours: My Active Orders 10/06/19 08:05 EKG Documentation Completion [RC] ASDIRECTED EKG 12 Lead [EK] Routine - Assessment/Plan Last 24 Hours: My Active Orders 10/06/19 08:05 EKG Documentation Completion [RC] ASDIRECTED EKG 12 Lead [EK] Routine
[2019-10-06 08:52] VITALS: BP 179/94; PULSE 61
--- NOTE | 2019-10-06 08:57 | CT ---
Head wo Cont CLINICAL HISTORY: Trauma, syncope COMPARISON: None TECHNIQUE: Transverse scans were obtained from the base of the skull through the vertex without IV contrast on a multislice, multidetector CT scanner. Auto dosage reduction and iterative reconstruction techniques employed. FINDINGS: No focal abnormal parenchymal density is identified. There is no mass effect, hemorrhage, or extraaxial collection. The basal cisterns and sulci over the convexities are prominent. The ventricles are normal for age. There is a small external smooth bony exostosis off the left frontal calvarium. IMPRESSION: No acute intracranial abnormality
--- NOTE | 2019-10-06 09:04 | CT ---
Cervical Spine wo Cont CLINICAL HISTORY: Fall TECHNIQUE: Multiple CT sections were taken through the cervical spine in the transaxial projection. Coronal and sagittal views were reconstructed. Images were viewed at bone as well as soft tissue windows on a digital workstation. Auto dosage reduction and iterative reconstruction techniques employed. FINDINGS: No fracture or subluxation is identified. Vertebral body heights are maintained. There is moderate spondylosis in the low cervical spine. Alignment is maintained. There is a incomplete transverse lucency through the right pedicle at C2. This is not felt to represent a fracture. Prevertebral soft tissues are unremarkable There is mild spondylosis and some uncovertebral joint spurring. There is mild neural foraminal encroachment at C56 bilaterally. Impression: No fracture or subluxation Diffuse degenerative disc disease with some spondylosis and uncovertebral joint spurring
--- NOTE | 2019-10-06 09:22 | CT ---
Chest wo Cont CLINICAL HISTORY: Fall, chest pain TECHNIQUE: Transverse scans were obtained from the thoracic inlet to the lung bases without contrast. Auto dosage reduction and iterative reconstruction techniques employed. COMPARISONS: None FINDINGS: There is no mass or infiltrate. There are a few scattered granulomata. Patient has small bilateral pleural effusions. Etiology is uncertain. No fractures are identified. There is moderate atheromatous change in the aorta. The A cine aorta measures 4.8 cm in AP diameter. IMPRESSION: Small bilateral pleural effusions of unknown etiology Prescreening elements exposure No fracture Described vascular disease with mild aneurysmal dilatation of the ascending aorta 4.8 cm
== END 2019-10-06 10:40 | disposition home or self-care (01) ==
LOC: JP.ED 07:52
DX: R55 Syncope and collapse (principal); S06.0X1A Concussion with loss of consciousness of 30 minutes or less, initial encounter; S00.01XA Abrasion of scalp, initial encounter; N18.4 Chronic kidney disease, stage 4 (severe); E11.22 Type 2 diabetes mellitus with diabetic chronic kidney disease; E78.5 Hyperlipidemia, unspecified; E66.9 Obesity, unspecified; Z68.31 Body mass index [BMI] 31.0-31.9, adult; Z88.8 Allergy status to other drugs, medicaments and biological substances; Z88.6 Allergy status to analgesic agent; Z88.5 Allergy status to narcotic agent; Z79.01 Long term (current) use of anticoagulants; Z79.4 Long term (current) use of insulin; Z79.899 Other long term (current) drug therapy; W01.10XA Fall on same level from slipping, tripping and stumbling with subsequent striking against unspecified object, initial encounter; Y93.89 Activity, other specified
CPT/HCPCS: 36415; 70450; 70450-26; 71250; 71250-26; 72125; 72125-26; 80053; 84484; 85025; 93005; 99284; 99285-25

== ENCOUNTER 2020-08-23 10:00 | Observation (INO) | payer MEDICARE ==
--- NOTE | 2020-08-23 11:07 | CT ---
Head wo Cont CLINICAL HISTORY: Trauma, syncope COMPARISON: September 2019 TECHNIQUE: Transverse scans were obtained from the base of the skull through the vertex without IV contrast on a multislice, multidetector CT scanner. Auto dosage reduction and iterative reconstruction techniques employed. FINDINGS: No focal abnormal parenchymal density is identified. There is no mass effect, hemorrhage, or extraaxial collection. The basal cisterns and sulci over the convexities are mildly prominent. The ventricles are mildly prominent. IMPRESSION: Atrophic changes No acute intracranial process
--- NOTE | 2020-08-23 11:25 | CR ---
CHEST: 2 view CLINICAL HISTORY:SOB COMPARISON:2017 FINDINGS: The heart is moderately enlarged. Pulmonary vascularity is cephalized. Patient has had previous sternotomy. There are atherosclerotic changes in the aorta.. No infiltrates or effusions are seen. IMPRESSION: Moderate cardiac megaly with some pulmonary vascular cephalization. This may represent some mild CHF. Some of this is chronic Previous sternotomy
--- NOTE | 2020-08-23 12:31 | EDM.PDOC ---
ED HPI GENERAL MEDICAL PROBLEM - General Chief Complaint: General Stated Complaint: dizzy Time Seen by Provider: 08/23/20 10:30 Source of Information: Reports: Patient History Limitations: Reports: No Limitations - History of Present Illness INITIAL COMMENTS - FREE TEXT/NARRATIVE: PT HAS BEEN HAVING INCREASED SOB AND HE HAS BEEN MORE TIRED RECENTLY. hE TOOK A SHOWER THIS AM AND HE WAS WIPING THE SHOWER DOWN AND HE GOT LITE HEADED. hE THEN DEVELOPED A BURNING PAIN ACCROSS THE SHOULDERS AND ARMS. tHIS WAS VERY UNCOMFORTABLE. hE IS NOT HAVING PAIN NOW,. hE PASSED OUT AND ACCORDING TO HIS HE WAS OUT FOR 2 MIN. hE HAD NO FURTHER PAIN. hE HAS A HISTORY OF A PREVIOUS CORONARY BYPASS. hE IS ON ELEQUISST FOR HIS CHRONIC ATRIAL FIB. hE DID HIT HIS HEAD. Onset: Today, Sudden Duration: Hour(s): Location: Reports: Head, Chest Associated Symptoms: Reports: Cough, Shortness of Breath, Other (PT HAD BURNING PAIN ACCROSS HIS SHOULDERS AND DOWN HIS ARMS. PT HAS BEEN SOB AND HE NOTES THIS IS WORSE THEN USUALL. hE DOES HAVE A HISTORY OF KIDNEY INSUFF) Right Neck Pain Score (Numeric/FACES): 3 - Related Data Allergies Allergy/AdvReac Type Severity Reaction Status Date / Time acetaminophen [From Vicodin] Allergy Other Verified 10/06/19 07:58 codeine AdvReac Nausea Verified 10/06/19 07:58 fentanyl AdvReac Dizziness Verified 10/06/19 07:58 hydrocodone AdvReac Nausea and Verified 10/06/19 07:58 Vomiting morphine AdvReac Nausea Verified 10/06/19 07:58 Home Meds: Home Meds Albuterol [Ventolin HFA] 2 puff INH Q4H PRN 10/09/14 [History] Gabapentin [Neurontin] 600 mg PO TID 10/09/14 [History] Nitroglycerin [Nitrolingual Petros] 0.4 mg SL Q5M PRN 10/09/14 [History] Torsemide 10 mg PO DAILY PRN 10/09/14 [History] atorvaSTATin Calcium [Atorvastatin Calcium] 10 mg PO DAILY 10/09/14 [History] Apixaban [Eliquis] 5 mg PO BID 04/16/17 [History] Isosorbide Mononitrate [Imdur] 90 mg PO BID 04/16/17 [History] Cholecalciferol (Vitamin D3) [Vitamin D3] 2,000 unit PO DAILY 01/24/19 [History] calcitrioL [Calcitriol] 0.25 mg PO DAILY 01/24/19 [History] carvediloL [Carvedilol] 25 mg PO BID 01/24/19 [History] Insulin Lispro [Humalog] 5 units SQ ASDIRECTED 10/06/19 [History] Codeine Phosphate/Guaifenesin [Guaiatussin AC Liquid] 5 ml PO ASDIRECTED PRN 08/23/20 [History] Past Medical History HEENT History: Reports: Cataract Cardiovascular History: Reports: Angina, Bypass, Heart Failure, High Cholesterol, SOB on Exertion, Stents, Syncope Gastrointestinal History: Reports: Other (See Below) Other Gastrointestinal History: abdominal hernia Genitourinary History: Reports: Other (See Below) Other Genitourinary History: renal insufficiency per patient Musculoskeletal History: Reports: None Neurological History: Reports: None Endocrine/Metabolic History: Reports: Diabetes, Type II, Obesity/BMI 30+, Vitamin D Deficiency Hematologic History: Reports: B12 Deficiency - Infectious Disease History Infectious Disease History: Reports: Chicken Pox - Past Surgical History HEENT Surgical History: Reports: Cataract Surgery Cardiovascular Surgical History: Reports: Other (See Below) Other Cardiovascular Surgeries/Procedures: quadrupal bypass 2009 GI Surgical History: Reports: Cholecystectomy, EGD Male Surgical History: Reports: None, Vasectomy Endocrine Surgical History: Reports: None Neurological Surgical History: Reports: Lumbar Spine Musculoskeletal Surgical History: Reports: Knee Replacement, Shoulder Replacement, Other (See Below) Other Musculoskeletal Surgeries/Procedures:: finger surgery. laser spine surgery Social & Family History - Family History Cardiac: Reports: CAD GI: Reports: Other (See Below) Musculoskeletal: Reports: Arthritis, Back pain, Chronic Endocrine/Metabolic: Reports: Diabetes, Type I, Diabetes, type II Oncologic: Reports: Breast, Lung - Tobacco Use Smoking Status *Q: Never Smoker - Caffeine Use Caffeine Use: Reports: Coffee, Soda, Tea Caffeine Use Comment: 2-3 cups coffee/daily - Recreational Drug Use Recreational Drug Use: No ED ROS GENERAL - Review of Systems Review Of Systems: See Below Constitutional: Reports: Weakness, Other (PT HAD SYNCOPE FOR 2 MINUTES ) HEENT: Reports: No Symptoms Respiratory: Reports: Shortness of Breath, Cough Cardiovascular: Reports: Other (PT HAS A HISTORY OF CONTROLLED ATRIAL FIB. ) Endocrine: Reports: No Symptoms GI/Abdominal: Reports: No Symptoms : Reports: No Symptoms Musculoskeletal: Reports: Other (PAIN ACCROSS HIS SHOULDERS AND DOWN BOTH ARMS. ) Skin: Reports: No Symptoms ED EXAM, GENERAL - Physical Exam Exam: See Below Free Text/Narrative:: PT ARRIVED WITH SOB. hE HAD A SYNCOPAL EPISODE THIS AM AND WAS OUT FOR ABOUIT 2 MINUTES. HE DID HIT [employer] HEAD AND HE IS ON ELEQUIST. Exam Limited By: No Limitations General Appearance: Alert, Anxious, Mild Distress Ears: Normal TMs Nose: Normal Inspection Throat/Mouth: Normal Inspection Head: Atraumatic Neck: Normal Inspection Respiratory/Chest: Decreased Breath Sounds Cardiovascular: Irregularly Irregular, Other (PT HAS A CHRONIC HISTORY OF ATRIAL FIB. ) GI/Abdominal: Soft, Non-Tender (Male) Exam: Deferred Rectal (Males) Exam: Deferred Back Exam: Normal Inspection Extremities: Normal Inspection Neurological: Alert, Oriented, Normal Cognition Psychiatric: Anxious Course - Vital Signs Last Recorded V/S: Last Vital Signs Temp 35.8 C L 08/23/20 10:08 Pulse 71 08/23/20 10:08 Resp 15 08/23/20 10:08 BP 159/99 H 08/23/20 10:08 Pulse Ox 91 L 08/23/20 10:08 Orthostatic Blood Pressure [ 152/79 Standing] Orthostatic Blood Pressure [ 153/84 Sitting] Orthostatic Blood Pressure [ 161/98 Supine] - Orders/Labs/Meds Orders: Active Orders 24 hr Category Date Time Status EKG Documentation Completion [RC] ASDIRECTED Care 08/23/20 10:14 Active Orthostatic Vital Signs [RC] ASDIRECTED Care 08/23/20 10:14 Active UA W/MICROSCOPIC [URIN] Urgent Lab 08/23/20 10:14 Ordered EKG 12 Lead [EK] Routine Ther 08/23/20 10:14 Ordered Labs: Laboratory Tests 08/23/20 08/23/20 Range/Units 10:26 10:26 WBC 6.5 (4.5-11.0) K/uL RBC 3.36 L (4.30-5.90) M/uL Hgb 10.2 L (12.0-15.0) g/dL Hct 32.1 L (40.0-54.0) % MCV 96 (80-98) fL MCH 30 (27-31) pg MCHC 32 (32-36) % Plt Count 131 L (150-400) K/uL Neut % (Auto) 81 H (36-66) % Lymph % (Auto) 6 L (24-44) % [place] % (Auto) 9 H (2-6) % Eos % (Auto) 3 (2-4) % Baso % (Auto) 0 (0-1) % Sodium 140 (140-148) mmol/L Potassium 3.9 (3.6-5.2) mmol/L Chloride 106 (100-108) mmol/L Carbon Dioxide 25 (21-32) mmol/L Anion Gap 8.7 (5.0-14.0) mmol/L BUN 60 H (7-18) mg/dL Creatinine 3.5 H (0.8-1.3) mg/dL Est Cr Clr Drug Dosing 23.81 mL/min Estimated GFR (MDRD) 18 L (>60) Glucose 219 H (74-106) mg/dL Calcium 8.4 L (8.5-10.1) mg/dL Total Bilirubin 1.0 (0.2-1.0) mg/dL AST 18 (15-37) U/L ALT 35 (12-78) U/L Alkaline Phosphatase 80 (46-116) U/L Troponin I 0.039 (0.000-0.056) ng/mL Total Protein 5.7 L (6.4-8.2) g/dL Albumin 2.8 L (3.4-5.0) g/dL Globulin 2.9 (2.3-3.5) g/dL Albumin/Globulin Ratio 1.0 L (1.2-2.2) - Re-Assessments/Exams Free Text/Narrative Re-Assessment/Exam: 08/23/20 12:39 PT HAS A TROP OF .039. hE HAS A GOOD LOOKING EKG WITH ATRIAL FUIB. hIS CHEST XRAY SHOWS CHF. hE HAS A ELEVATED CREATNINE AT 3.5. Departure - Departure Time of Disposition: 12:40 Disposition: Admitted As Inpatient 68 Condition: Fair Clinical Impression: CHF (congestive heart failure), Atrial fibrillation, Syncope - Discharge Information Referrals: PCP,None [Primary Care Provider] - Care Plan Goals: ADMIT TO dR Sarah. Sepsis Event Note (ED) - Evaluation Sepsis Screening Result: No Definite Risk - Focused Exam Vital Signs: Vital Signs Temp Pulse Resp BP Pulse Ox 08/23/20 10:08 35.8 C L 71 15 159/99 H 91 L 08/23/20 10:03 35.8 C L 71 15 159/99 H 91 L - My Orders Last 24 Hours: My Active Orders 08/23/20 10:14 EKG Documentation Completion [RC] ASDIRECTED Orthostatic Vital Signs [RC] ASDIRECTED UA W/MICROSCOPIC [URIN] Urgent EKG 12 Lead [EK] Routine - Assessment/Plan Last 24 Hours: My Active Orders 08/23/20 10:14 EKG Documentation Completion [RC] ASDIRECTED Orthostatic Vital Signs [RC] ASDIRECTED UA W/MICROSCOPIC [URIN] Urgent EKG 12 Lead [EK] Routine
--- NOTE | 2020-08-23 14:01 | PCM.HP.2 ---
H&P History of Present Illness - General Date of Service: 08/23/20 Admit Problem/Dx: Admission Diagnosis/Problem Admission Diagnosis/Problem Syncope and collapse Source of Information: Other (ED attending) - History of Present Illness Initial Comments - Free Text/Narative: Mr. Leandro Bill is a 69 yo M admitted to [facility] on 23 August 2020 after a syncopal episode on the morning of admission. The patient was noted to have been in the shower and during his time in the shower he noted feeling somewhat lightheaded. He was able to complete his work in the shower and then began to wipe down the shower. At that time he noted that he felt light headed as well as vertiginous. He noted that his vision grayed out and he lost consciousness. He did strike his head against the tub. He was transported to the ED. 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 The patient also had negative EKG, negative cardiac enzymes. His creatinine was elevated at 3.50 (baseline normally around 2.5-2.9). He has not been able to give an urine sample. He does appear rather dry. COVID 19 screening test pending. In the month or so prior to admission the patient has noted an increased cough which he attributes to his known h/o CHF and prior CABG. He notes that he did take a second dose of his torsemide daily and has done so nearly daily for the past 3-3.5 wks. The patient also notes having started a new "anxiety/sleeper med" on Sunday last (19 August 2020). Since that time the patient has noted feeling "off". Throughout this month period of time he has noted difficulties with increased lightheadedness, particularly with positional change (bending over). He denies chest pain or palpitations. No fever, chills, sore throat, loss of taste or smell are noted. He does note some pain along the upper shoulders. Onset of Symptoms: Reports: Today Symptom Onset Date: 08/23/20 Duration of Symptoms: Reports: Minutes:, Resolved Prior to Arrival Location: Reports: Generalized Right Neck Pain Score (Numeric/FACES): 3 - Related Data Allergies/Adverse Reactions: Allergies Allergy/AdvReac Type Severity Reaction Status Date / Time acetaminophen [From Vicodin] Allergy Other Verified 10/06/19 07:58 codeine AdvReac Nausea Verified 10/06/19 07:58 fentanyl AdvReac Dizziness Verified 10/06/19 07:58 hydrocodone AdvReac Nausea and Verified 10/06/19 07:58 Vomiting morphine AdvReac Nausea Verified 10/06/19 07:58 Home Medications: Home Meds Albuterol [Ventolin HFA] 2 puff INH Q4H PRN 10/09/14 [History] Gabapentin [Neurontin] 600 mg PO TID 10/09/14 [History] Nitroglycerin [Nitrolingual M[place]uke] 0.4 mg SL Q5M PRN 10/09/14 [History] Torsemide 10 mg PO DAILY PRN 10/09/14 [History] atorvaSTATin Calcium [Atorvastatin Calcium] 10 mg PO DAILY 10/09/14 [History] Apixaban [Eliquis] 5 mg PO BID 04/16/17 [History] Isosorbide Mononitrate [Imdur] 90 mg PO BID 04/16/17 [History] Cholecalciferol (Vitamin D3) [Vitamin D3] 2,000 unit PO DAILY 01/24/19 [History] calcitrioL [Calcitriol] 0.25 mg PO DAILY 01/24/19 [History] carvediloL [Carvedilol] 25 mg PO BID 01/24/19 [History] Insulin Lispro [Humalog] 5 units SQ ASDIRECTED 10/06/19 [History] Codeine Phosphate/Guaifenesin [Guaiatussin AC Liquid] 5 ml PO ASDIRECTED PRN 08/23/20 [History] Past Medical History HEENT History: Reports: Cataract Cardiovascular History: Reports: Angina, Bypass, Heart Failure, High Cholesterol, SOB on Exertion, Stents, Syncope Gastrointestinal History: Reports: Other (See Below) Other Gastrointestinal History: abdominal hernia Genitourinary History: Reports: Other (See Below) Other Genitourinary History: renal insufficiency per patient Musculoskeletal History: Reports: None Neurological History: Reports: None Endocrine/Metabolic History: Reports: Diabetes, Type II, Obesity/BMI 30+, Vitamin D Deficiency Hematologic History: Reports: B12 Deficiency - Infectious Disease History Infectious Disease History: Reports: Chicken Pox - Past Surgical History HEENT Surgical History: Reports: Cataract Surgery Cardiovascular Surgical History: Reports: Other (See Below) Other Cardiovascular Surgeries/Procedures: quadrupal bypass 2009 GI Surgical History: Reports: Cholecystectomy, EGD Male Surgical History: Reports: None, Vasectomy Endocrine Surgical History: Reports: None Neurological Surgical History: Reports: Lumbar Spine Musculoskeletal Surgical History: Reports: Knee Replacement, Shoulder Replacement, Other (See Below) Other Musculoskeletal Surgeries/Procedures:: finger surgery. laser spine surgery Social & Family History - Family History Cardiac: Reports: CAD GI: Reports: Other (See Below) Musculoskeletal: Reports: Arthritis, Back pain, Chronic Endocrine/Metabolic: Reports: Diabetes, Type I, Diabetes, type II Oncologic: Reports: Breast, Lung - Tobacco Use Smoking Status *Q: Never Smoker - Caffeine Use Caffeine Use: Reports: Coffee, Soda, Tea Caffeine Use Comment: 2-3 cups coffee/daily - Recreational Drug Use Recreational Drug Use: No H&P Review of Systems - Review of Systems: Review Of Systems: See Below General: Reports: Fatigue HEENT: Reports: Vertigo Pulmonary: Reports: No Symptoms Cardiovascular: Reports: Lightheadedness, Syncope Gastrointestinal: Reports: No Symptoms Genitourinary: Reports: No Symptoms Musculoskeletal: Reports: Neck Pain, Shoulder Pain Skin: Reports: No Symptoms Psychiatric: Reports: Anxiety Neurological: Reports: No Symptoms Hematologic/Lymphatic: Reports: No Symptoms Immunologic: Reports: No Symptoms Exam - Exam Exam: See Below - Vital Signs Vital Signs: Last Vital Signs Temp 96.4 F L 08/23/20 10:08 Pulse 71 08/23/20 10:08 Resp 15 08/23/20 10:08 BP 159/99 H 08/23/20 10:08 Pulse Ox 91 L 08/23/20 10:08 Orthostatic Blood Pressure [ 152/79 Standing] Orthostatic Blood Pressure [ 153/84 Sitting] Orthostatic Blood Pressure [ 161/98 Supine] Weight: 228 lb - Exam Quality Assessment: No: Supplemental Oxygen, Central Line/PICC, Urinary Catheter General: Alert, Oriented, Cooperative HEENT: PERRLA, Conjunctiva Clear, EOMI, Hearing Intact, Nares Patent, Pupils Reactive, Other (mucous membranes are somewhat dry on exam). No: Scleral Icterus Neck: Supple, Trachea Midline Lungs: Clear to Auscultation, Normal Respiratory Effort Cardiovascular: Regular Rhythm, Normal S1, Normal S2 GI/Abdominal Exam: Normal Bowel Sounds, Soft, Non-Tender, No Organomegaly, No Distention, No Abnormal Bruit, No Mass Back Exam: Normal Inspection, Full Range of Motion Extremities: Normal Inspection, Normal Range of Motion, Non-Tender, No Pedal Edema, Normal Capillary Refill Peripheral Pulses: 4+: Posterior Tibial (L), Posterior Tibial (R), Dorsalis Pedis (L), Dorsalis Pedis (R) Skin: Warm, Dry, Intact Neurological: Cranial Nerves Intact, Reflexes Equal Bilateral, Strength Equal Bilateral, Normal Speech, Normal Tone, Sensation Intact Neuro Extensive - Mental Status: Alert, Oriented x3, Normal Mood/Affect, Normal Cognition, Memory Intact Neuro Extensive - Motor, Sensory, Reflexes: CN II-XII Intact, Normal Gait, Normal Reflexes DTR: 2+: Patella (L), Patella (R) Psychiatric: Alert, Normal Affect, Normal Mood - Patient Data Lab Results Last 24 hrs: Laboratory Results - last 24 hr 08/23/20 08/23/20 08/23/20 Range/Units 10:18 10:26 10:26 WBC 6.5 (4.5-11.0) K/uL RBC 3.36 L (4.30-5.90) M/uL Hgb 10.2 L (12.0-15.0) g/dL Hct 32.1 L (40.0-54.0) % MCV 96 (80-98) fL MCH 30 (27-31) pg MCHC 32 (32-36) % Plt Count 131 L (150-400) K/uL Neut % (Auto) 81 H (36-66) % Lymph % (Auto) 6 L (24-44) % [place] % (Auto) 9 H (2-6) % Eos % (Auto) 3 (2-4) % Baso % (Auto) 0 (0-1) % Sodium 140 (140-148) mmol/L Potassium 3.9 (3.6-5.2) mmol/L Chloride 106 (100-108) mmol/L Carbon Dioxide 25 (21-32) mmol/L Anion Gap 8.7 (5.0-14.0) mmol/L BUN 60 H (7-18) mg/dL Creatinine 3.5 H (0.8-1.3) mg/dL Est Cr Clr Drug Dosing 23.81 mL/min Estimated GFR (MDRD) 18 L (>60) Glucose 219 H (74-106) mg/dL Calcium 8.4 L (8.5-10.1) mg/dL Total Bilirubin 1.0 (0.2-1.0) mg/dL AST 18 (15-37) U/L ALT 35 (12-78) U/L Alkaline Phosphatase 80 (46-116) U/L Troponin I 0.039 (0.000-0.056) ng/mL NT-Pro-B Natriuret Pep 50379 H (5-125) pg/mL Total Protein 5.7 L (6.4-8.2) g/dL Albumin 2.8 L (3.4-5.0) g/dL Globulin 2.9 (2.3-3.5) g/dL Albumin/Globulin Ratio 1.0 L (1.2-2.2) Result Diagrams: 08/23/20 10:26 08/23/20 10:26 Sepsis Event Note - Evaluation Sepsis Screening Result: No Definite Risk - Focused Exam Vital Signs: Vital Signs Temp Pulse Resp BP Pulse Ox 08/23/20 10:08 96.4 F L 71 15 159/99 H 91 L 08/23/20 10:03 96.4 F L 71 15 159/99 H 91 L Problem List Initiated/Reviewed/Updated: Yes Orders Last 24hrs: Active Orders 24 hr Category Date Time Status Patient Status Manage Transfer [TRANSFER] Routine ADT 08/23/20 13:20 Active EKG Documentation Completion [RC] ASDIRECTED Care 08/23/20 10:14 Active Orthostatic Vital Signs [RC] ASDIRECTED Care 08/23/20 10:14 Active Echo Comp wo Cont [US] Routine Exams 08/24/20 05:11 Ordered CORONAVIRUS COVID-19 GISELL [MOLEC] Stat Lab 08/23/20 13:00 Received UA W/MICROSCOPIC [URIN] Urgent Lab 08/23/20 10:14 Ordered Resuscitation Status Routine Resus Stat 08/23/20 13:21 Ordered EKG 12 Lead [EK] Routine Ther 08/23/20 10:14 Ordered Assessment/Plan Comment:: Assessment and Plan 1. HEENT Patient has had prior concussion about 11 mos ago. He has had a recurrent head injury today. - PT/OT assessment - Monitor for signs of AMS 2. Cardiac Patient has prior known history of CABG with prior known h/o CHF. EKG is negative for ST segment changes. Initial coronary enzyme was WNL. Patient last had an echo 11 months ago in Cardiology. He denied fluttering or palpitation, likewise denied any other pathological signs and symptoms c/w ACS. The syncopal episode today appears to be in line with prior pre-syncopal episodes (namely that they are positional). Given the recent increase in dose of his torsemide to BID instead of QD and the addition of a sleeper of some sort, there is a good chance that this is in fact vasovagal or due to mild dehydration. - Agree with ED admission to Observation status for syncope evaluation - Telemetry - Orthostatic vitals - He is scheduled for repeat Echocardiogram on October 03. - We will facilitate Echo during this admission on 24 August - Given that I think he is a little on the dehydrated side and not showing active symptoms c/w acute CHF exacerbation, I do think a little hydration is reasonable - Start 0.9% NS at 75 mL/hr - Monitor for peripheral edema, increasing hypoxia or WOB - May benefit from ambulatory desk monitor (Holter or Zio monitoring) - Continue C[employer]BEAR[employer] Eliquis 3. Pulmonary Patient has mild cough as noted above. No other symptoms are noted. CXR did some some mild patchy infiltrates. - COVID 19 pending - As above 4. Renal Patient has chronic renal insufficiency at baseline but per history this seems to sit in the 2.5-2.9 creatinine range. His admission creatinine is 3.5 and he is mildly oliguric. I do suspect that he is mildly dehydrated at this time - Daily chemistry - IV fluids as above 5. Infectious Disease No active issues other than pending COVID 19 screen 6. Gastrointestinal No active issues 7. Genitourinary No active issues 8. Musculoskeletal The patient is endorsing pain along the upper back. I am doubtful that this is a sign of dissection or other pathology and more likely due to myofascial strain due to his fall. 9. Neurological Patient did have head CT s/p head trauma and concomittant anticoagulation - Observe for AMS or Neuro changes - No change to C[employer]BE[employer] eliquis 10. Psychiatric/Mental Health Patient seems quite flat and was recently started on a new anxiolytic/sedative. I am not sure what this is precisely and neither was the patient. It may be reasonable to consider holding. Disposition: Anticipate discharge back to home in about 24-36 hours. Mario Bruce M.D. 23 August 2020 - Mortality Measure Prognosis:: Good
[2020-08-23] MEDS ORDERED: Ondansetron 4 MG Tab.DIS PO PRN (15:07)
[2020-08-23] MEDS ORDERED: Acetaminophen 325 MG Tab PO PRN (15:07)
[2020-08-23] MEDS ORDERED: Sodium Chloride 0.9% 1,000 ML IV SCH (15:07)
[2020-08-23] MEDS ORDERED: Docusate Sodium 100 MG Cap PO PRN (15:07)
[2020-08-23] MEDS ORDERED: NITROGLYCERIN 0.4 MG SL PRN (17:59)
[2020-08-23] MEDS ORDERED: Albuterol 8 GM Inhaler INH PRN (17:59)
[2020-08-23] MEDS ORDERED: [UNRECOGNIZED DRUG - OTHER] PO PRN (17:59)
[2020-08-23] MEDS ORDERED: GUAIFENESIN PO PRN (17:59)
[2020-08-23] MEDS ORDERED: CODEINE PHOSPHATE PO PRN (17:59)
[2020-08-23] MEDS ORDERED: Insulin Lispro 100 Unit/ML 3 ML KwikPen SUBCUT SCH (18:00)
[2020-08-23] MEDS ORDERED: Codeine/guaiFENesin 100mg-10 MG/5 ML Syrup 10 ML Cup PO PRN (20:39)
[2020-08-23] MEDS: CARVEDILOL 25 MG PO SCH (20:58)
[2020-08-23] MEDS: ISOSORBIDE DINITRATE 20 MG PO SCH (20:59)
[2020-08-23] MEDS: APIXABAN 5 MG PO SCH (20:59)
[2020-08-23] MEDS ORDERED: Gabapentin 400 MG Cap PO SCH (21:00)
[2020-08-23] MEDS ORDERED: GABAPENTIN 600 MG PO SCH ×2 (21:00)
[2020-08-23] MEDS ORDERED: ISOSORBIDE MONONITRATE 90 MG PO SCH (21:00)
[2020-08-23] MEDS ORDERED: HYDRALAZINE 10 MG PO ONE (23:30)
[2020-08-24] MEDS: ISOSORBIDE DINITRATE 20 MG PO SCH ×2 (08:53→14:29)
[2020-08-24] MEDS: APIXABAN 5 MG PO SCH (08:54)
[2020-08-24] MEDS: CARVEDILOL 25 MG PO SCH (08:55)
[2020-08-24] MEDS ORDERED: GABAPENTIN 600 MG PO SCH ×2 (09:00→12:00)
[2020-08-24] MEDS ORDERED: HYDRALAZINE 10 MG PO SCH (09:00)
--- NOTE | 2020-08-24 09:14 | CR ---
CHEST: Portable 08/24/2020 at 8:42 AM CLINICAL HISTORY:CHF COMPARISON:08/23/2020 FINDINGS: Heart is enlarged. Pulmonary vascularity has diminished since prior study. There is persistent patchy density in the left infrahilar region. IMPRESSION: Decrease in pulmonary vascular congestion Persistent patchy airspace disease in the left infrahilar region. This may represent some residual pulmonary edema with some scarring and atelectasis. The follow-up recommended until clear to exclude underlying lesion or pneumonia.
[2020-08-24] MEDS ORDERED: Sodium Chloride 0.9% 500 ML IV ONE (10:26)
[2020-08-24] MEDS ORDERED: Torsemide 20 MG Tab PO ONE (10:46)
[2020-08-24] MEDS ORDERED: TORSEMIDE 20 MG PO ONE (11:30)
[2020-08-24] MEDS ORDERED: VIT D3 2000 UNIT PO SCH (12:00)
[2020-08-24] MEDS ORDERED: Gabapentin 300 MG Cap PO SCH (12:00)
[2020-08-24 12:38] VITALS: BP 151/90; PULSE 72
--- NOTE | 2020-08-24 14:59 | PCM.DCSUM1 ---
Discharge Summary - Hospital Course Free Text/Narrative:: Mr. Leandro Bill is a 69 yo male admitted to [facility] on 23 August 2020 for management and evaluation of a syncopal episode on the day of admission. The patient has a known CHF history and has had an Rx from PCP for torsemide 10 mg po q day to bid prn. 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 The patient, since increasing the dose, had noted increasing lightheadedness. Upon admission he was noted to have a creatinine of 3.5. He was given a small maintenance rate of IVF and this brought his creatinine down from 3.5 to 3.1. The patient's baseline is 2.9-3.7. The patient had no further symptoms, tolerated PT/OT without difficulties, and was anxious to discharge to home. No changes were made to the ENVIRONMENTAL CONSULTANT medications other than the recommendation that the patient be on torsemide 10 mg po q day. While the D/C rx is written as prn, the patient willneed the medication for the next 3-5 days as the admission BNP was 21k. The patient otherwise should be arranged for a outpatient holter or zio monitor to evaluate for dysrhythmia. None were noted during this admission. The patient's examination at discharge: HEENT - Unremarkable Cardiac: NSR, RRR, no gallops or murmur Respiratory: CTA all [place] Extremity: No peripheral edema noted Patient is sufficiently stable to D/C to home Diagnosis: Stroke: No - Discharge Data Discharge Date: 08/24/20 Discharge Disposition: Home, Self-Care 01 Condition: Good - Referral to Home Health Primary Care Physician: PCP None - Patient Summary/Data Consults: Consultations 08/23/20 15:07 OT Evaluation and Treatment [CONS] Routine Please Evaluate and Treat. OT Reason for Consult: Discharge Planning This query below is only for informational purposes and is not editable. PT Evaluation and Treatment [CONS] Routine Please Evaluate and Treat. PT Reason for Consult: Strengthening This query below is only for informational purposes and is not editable. Recommended Follow-up Testing/Procedures: 1. Holter monitor - Patient Instructions Diet: Heart Healthy Diet Activity: As Tolerated Driving: Do Not Drive Showering/Bathing: May Shower Notify Provider of: Fever - Discharge Plan *PRESCRIPTION DRUG MONITORING PROGRAM REVIEWED*: No *COPY OF PRESCRIPTION DRUG MONITORING REPORT IN PATIENT TIFFANIE: No Home Medications: Home Meds Albuterol [Ventolin HFA] 2 puff INH Q4H PRN 10/09/14 [History] Gabapentin [Neurontin] 600 mg PO TID 10/09/14 [History] Nitroglycerin [Nitrolingual [place]] 0.4 mg SL Q5M PRN 10/09/14 [History] Torsemide 10 mg PO DAILY PRN 10/09/14 [History] atorvaSTATin Calcium [Atorvastatin Calcium] 10 mg PO DAILY 10/09/14 [History] Apixaban [Eliquis] 5 mg PO BID 04/16/17 [History] Isosorbide Mononitrate [Imdur] 90 mg PO BID 04/16/17 [History] Cholecalciferol (Vitamin D3) [Vitamin D3] 2,000 unit PO DAILY 01/24/19 [History] calcitrioL [Calcitriol] 0.25 mg PO DAILY 01/24/19 [History] carvediloL [Carvedilol] 25 mg PO BID 01/24/19 [History] Insulin Lispro [Humalog] 5 units SQ ASDIRECTED 10/06/19 [History] Codeine Phosphate/Guaifenesin [Guaiatussin AC Liquid] 5 ml PO ASDIRECTED PRN 08/23/20 [History] hydrALAZINE [Apresoline] 20 mg PO DAILY tablet 08/24/20 [Rx] Patient Handouts: Heart Failure Eating Plan Forms: ED Department Discharge Referrals: Deacon Salazar MD [Physician] - 08/30/20 10:40 am (Please arrive 15 minutes early to register for your appointment.) - Discharge Summary/Plan Comment DC Time >30 min.: Yes - Patient Data Vitals - Most Recent: Last Vital Signs Temp 97.7 F 08/24/20 12:36 Pulse 72 08/24/20 12:36 Resp 20 08/24/20 12:36 BP 151/90 H 08/24/20 12:36 Pulse Ox 97 08/24/20 12:36 Orthostatic Blood Pressure [ 152/79 Standing] Orthostatic Blood Pressure [ 153/84 Sitting] Orthostatic Blood Pressure [ 161/98 Supine] Weight - Most Recent: 234 lb 15.992 oz I&O - Last 24 hours: Intake & Output 08/23/20 08/24/20 08/24/20 22:59 06:59 14:59 Intake Total 485 290 640 Output Total 200 Balance 285 290 640 Lab Results - Last 24 hrs: Laboratory Results - last 24 hr 08/23/20 08/23/20 08/23/20 Range/Units 15:19 16:35 16:48 WBC (4.5-11.0) K/uL RBC (4.30-5.90) M/uL Hgb (12.0-15.0) g/dL Hct (40.0-54.0) % MCV (80-98) fL MCH (27-31) pg MCHC (32-36) % Plt Count (150-400) K/uL Neut % (Auto) (36-66) % Lymph % (Auto) (24-44) % [place] % (Auto) (2-6) % Eos % (Auto) (2-4) % Baso % (Auto) (0-1) % Sodium (140-148) mmol/L Potassium (3.6-5.2) mmol/L Chloride (100-108) mmol/L Carbon Dioxide (21-32) mmol/L Anion Gap (5.0-14.0) mmol/L BUN (7-18) mg/dL Creatinine (0.8-1.3) mg/dL Est Cr Clr Drug Dosing mL/min Estimated GFR (MDRD) (>60) Glucose (74-106) mg/dL POC Glucose 173 H (74-106) MG/DL Calcium (8.5-10.1) mg/dL Total Bilirubin (0.2-1.0) mg/dL AST (15-37) U/L ALT (12-78) U/L Alkaline Phosphatase (46-116) U/L Troponin I 0.023 (0.000-0.056) ng/mL Total Protein (6.4-8.2) g/dL Albumin (3.4-5.0) g/dL Globulin (2.3-3.5) g/dL Albumin/Globulin Ratio (1.2-2.2) Urine Color Yellow (YELLOW) Urine Appearance Clear (CLEAR) Urine pH 6.0 (5.0-8.0) Ur Specific [place] 1.025 (1.008-1.030) Urine Protein >=300 H (NEGATIVE) mg/dL Urine Glucose (UA) 100 H (NEGATIVE) mg/dL Urine Ketones Negative (NEGATIVE) mg/dL Urine Occult Blood Negative (NEGATIVE) Urine Nitrite Negative (NEGATIVE) Urine Bilirubin Negative (NEGATIVE) Urine Urobilinogen 0.2 (0.2-1.0) EU/dL Ur Leukocyte Esterase Negative (NEGATIVE) Urine RBC 0-5 (0-5) Urine WBC 0-5 (0-5) Ur Epithelial Cells Rare Amorphous Sediment Rare Urine Bacteria Not seen Urine Mucus Not seen 08/23/20 08/23/20 08/24/20 Range/Units 21:00 22:15 08:35 WBC 5.4 (4.5-11.0) K/uL RBC 3.56 L (4.30-5.90) M/uL Hgb 10.7 L (12.0-15.0) g/dL Hct 34.0 L (40.0-54.0) % MCV 96 (80-98) fL MCH 30 (27-31) pg MCHC 32 (32-36) % Plt Count 126 L (150-400) K/uL Neut % (Auto) 78 H (36-66) % Lymph % (Auto) 7 L (24-44) % [place] % (Auto) 12 H (2-6) % Eos % (Auto) 3 (2-4) % Baso % (Auto) 0 (0-1) % Sodium (140-148) mmol/L Potassium (3.6-5.2) mmol/L Chloride (100-108) mmol/L Carbon Dioxide (21-32) mmol/L Anion Gap (5.0-14.0) mmol/L BUN (7-18) mg/dL Creatinine (0.8-1.3) mg/dL Est Cr Clr Drug Dosing mL/min Estimated GFR (MDRD) (>60) Glucose (74-106) mg/dL POC Glucose 188 H (74-106) MG/DL Calcium (8.5-10.1) mg/dL Total Bilirubin (0.2-1.0) mg/dL AST (15-37) U/L ALT (12-78) U/L Alkaline Phosphatase (46-116) U/L Troponin I 0.033 (0.000-0.056) ng/mL Total Protein (6.4-8.2) g/dL Albumin (3.4-5.0) g/dL Globulin (2.3-3.5) g/dL Albumin/Globulin Ratio (1.2-2.2) Urine Color (YELLOW) Urine Appearance (CLEAR) Urine pH (5.0-8.0) Ur Specific [place] (1.008-1.030) Urine Protein (NEGATIVE) mg/dL Urine Glucose (UA) (NEGATIVE) mg/dL Urine Ketones (NEGATIVE) mg/dL Urine Occult Blood (NEGATIVE) Urine Nitrite (NEGATIVE) Urine Bilirubin (NEGATIVE) Urine Urobilinogen (0.2-1.0) EU/dL Ur Leukocyte Esterase (NEGATIVE) Urine RBC (0-5) Urine WBC (0-5) Ur Epithelial Cells Amorphous Sediment Urine Bacteria Urine Mucus 08/24/20 Range/Units 08:35 WBC (4.5-11.0) K/uL RBC (4.30-5.90) M/uL Hgb (12.0-15.0) g/dL Hct (40.0-54.0) % MCV (80-98) fL MCH (27-31) pg MCHC (32-36) % Plt Count (150-400) K/uL Neut % (Auto) (36-66) % Lymph % (Auto) (24-44) % [place] % (Auto) (2-6) % Eos % (Auto) (2-4) % Baso % (Auto) (0-1) % Sodium 141 (140-148) mmol/L Potassium 4.0 (3.6-5.2) mmol/L Chloride 106 (100-108) mmol/L Carbon Dioxide 24 (21-32) mmol/L Anion Gap 10.6 (5.0-14.0) mmol/L BUN 50 H (7-18) mg/dL Creatinine 3.1 H (0.8-1.3) mg/dL Est Cr Clr Drug Dosing 26.88 mL/min Estimated GFR (MDRD) 20 L (>60) Glucose 194 H (74-106) mg/dL POC Glucose (74-106) MG/DL Calcium 8.5 (8.5-10.1) mg/dL Total Bilirubin 1.1 H (0.2-1.0) mg/dL AST 20 (15-37) U/L ALT 34 (12-78) U/L Alkaline Phosphatase 90 (46-116) U/L Troponin I (0.000-0.056) ng/mL Total Protein 6.1 L (6.4-8.2) g/dL Albumin 2.8 L (3.4-5.0) g/dL Globulin 3.3 (2.3-3.5) g/dL Albumin/Globulin Ratio 0.9 L (1.2-2.2) Urine Color (YELLOW) Urine Appearance (CLEAR) Urine pH (5.0-8.0) Ur Specific [place] (1.008-1.030) Urine Protein (NEGATIVE) mg/dL Urine Glucose (UA) (NEGATIVE) mg/dL Urine Ketones (NEGATIVE) mg/dL Urine Occult Blood (NEGATIVE) Urine Nitrite (NEGATIVE) Urine Bilirubin (NEGATIVE) Urine Urobilinogen (0.2-1.0) EU/dL Ur Leukocyte Esterase (NEGATIVE) Urine RBC (0-5) Urine WBC (0-5) Ur Epithelial Cells Amorphous Sediment Urine Bacteria Urine Mucus Med Orders - Current: Current Medications Acetaminophen (Tylenol) 650 mg PO Q4H PRN PRN Reason: Pain (Mild 1-3)/fever Albuterol (Ventolin Hfa) 0 gm INH Q4H PRN PRN Reason: Dyspnea Apixaban (Eliquis) 5 mg PO BID [facility] Last Admin: 08/24/20 08:54 Dose: 5 mg Documented by: Atorvastatin Calcium (Lipitor) 10 mg PO BEDTIME [facility] Docusate Sodium (Colace) 100 mg PO BID PRN PRN Reason: Constipation Guaifenesin/Codeine Phosphate (Robitussin Ac) 5 ml PO Q6H PRN PRN Reason: Cough Hydralazine HCl (Apresoline) 20 mg PO DAILY [facility] Last Admin: 08/24/20 11:43 Dose: 20 mg Documented by: Sodium Chloride (Normal Saline) 1,000 mls @ 75 mls/hr IV ASDIRECTED [facility] Last Admin: 08/24/20 04:30 Dose: 75 mls/hr Documented by: Calcitriol ( Calcitriol) 0.25 Mg* *Pom 0.25 mg PO DAILY [facility] Carvedilol (Coreg) (25 MgPom) 25 mg PO BIDMEALS [facility] Last Admin: 08/24/20 08:55 Dose: 25 mg Documented by: Isosorbide Dinitrate (20 Mg Tab Pom) 0 each PO TID [facility] Last Admin: 08/24/20 14:29 Dose: 1 each Documented by: Gabapentin 600 Mg (Tab Pom) 600 mg PO BID [facility] Last Admin: 08/24/20 08:55 Dose: 600 mg Documented by: Ondansetron HCl (Zofran Odt) 4 mg PO Q6H PRN PRN Reason: Nausea able to take PO Vit D3 2,000 Unit (Tab (Ptom)) 1 each PO DAILY [facility] Last Admin: 08/24/20 14:29 Dose: 1 each Documented by: Discontinued Medications Gabapentin (Neurontin) 1,200 mg PO BID [facility] Gabapentin (Neurontin) 600 mg PO 1200 [facility] Hydralazine HCl (Apresoline) 20 mg PO ONETIME ONE Stop: 08/23/20 23:31 Last Admin: 08/24/20 01:37 Dose: 20 mg Documented by: Sodium Chloride (Normal Saline) 500 mls @ 500 mls/hr IV .BOLUS ONE Stop: 08/24/20 11:25 Last Admin: 08/24/20 10:47 Dose: Not Given Documented by: Insulin Human Lispro (Humalog) 5 unit SUBCUT ASDIRECTED [facility] Non-Formulary Medication (Codeine Phosphate/Guaifenesin [Guaiatussin Ac Liquid]) 5 ml PO ASDIRECTED PRN PRN Reason: Cough Gabapentin 600 Mg (Tab *Pt Own Med*) 600 mg PO TID [facility] Non-Formulary Medication (Isosorbide Mononitrate [Imdur]) 90 mg PO BID [facility] Non-Formulary Medication (Nitroglycerin [Nitrolingual [place]]) 0.4 mg SL Q5M PRN PRN Reason: Chest Pain Gabapentin 600 Mg (Tab *Pt Own Med*) 1,200 mg PO BID [facility] Last Admin: 08/23/20 21:01 Dose: 600 mg Documented by: Gabapentin 600 Mg (Tab *Pt Own Med*) 600 mg PO DAILY@1200 [place] Torsemide (Demadex) 0 mg PO ONETIME ONE Stop: 08/24/20 11:31 Last Admin: 08/24/20 11:44 Dose: 10 mg Documented by:
[2020-08-24] MEDS ORDERED: ATORVASTATIN 10 MG PO SCH (21:00)
[2020-08-25] MEDS ORDERED: CALCITRIOL 0.25 MG PO SCH (09:00)
== END 2020-08-24 15:10 | disposition home or self-care (01) ==
LOC: JP.ED 10:00 → JP.MS 13:20
PROVIDERS: ADMIT Family Medicine; ATTEND Family Medicine
DX: R55 Syncope and collapse (principal); I50.9 Heart failure, unspecified; E78.00 Pure hypercholesterolemia, unspecified; E66.9 Obesity, unspecified; N18.9 Chronic kidney disease, unspecified; I48.91 Unspecified atrial fibrillation; Z20.828 Contact with and (suspected) exposure to other viral communicable diseases; Z79.899 Other long term (current) drug therapy; Z68.30 Body mass index [BMI] 30.0-30.9, adult; Z88.5 Allergy status to narcotic agent; Z88.8 Allergy status to other drugs, medicaments and biological substances
CPT/HCPCS: 36415; 70450; 70450-26; 71045; 71045-26; 71046; 71046-26; 80053; 81001; 82962; 83880; 84484; 85025; 93005; 93306; 97161-GP; 97165-GO; 99285-25; A9270-GY; G0378; J7030; U0002

== ENCOUNTER 2022-06-03 13:30 | Emergency (ER) | payer MEDICARE ==
[2022-06-03 14:47] LABS: TROPONIN I HIGH SENSITIVITY 25.1 pg/mL (<=60.3)
== END 2022-06-03 16:19 | disposition home or self-care (01) ==
LOC: JP.ED 13:30
DX: R07.89 Other chest pain (principal); I50.9 Heart failure, unspecified; E78.00 Pure hypercholesterolemia, unspecified; E11.9 Type 2 diabetes mellitus without complications; E66.9 Obesity, unspecified; Z68.22 Body mass index [BMI] 22.0-22.9, adult; Z88.6 Allergy status to analgesic agent; Z88.5 Allergy status to narcotic agent; Z79.899 Other long term (current) drug therapy; Z79.01 Long term (current) use of anticoagulants; Z90.49 Acquired absence of other specified parts of digestive tract
CPT/HCPCS: 36415; 80048; 84484; 85025; 93005; 93010; 99284; 99285

== ENCOUNTER 2023-02-19 08:22 | Emergency (ER) | payer MEDICARE ==
[2023-02-19] MEDS ORDERED: Sodium Chloride 0.9% 1,000 ML IV ONE (08:55)
[2023-02-19 09:25] LABS: ESTIMATED GFR 54 mL/min (>60)
[2023-02-19 09:42] LABS: CORONAVIRUS COVID-19 NAA NEGATIVE (NEGATIVE)
[2023-02-19] MEDS ORDERED: Magnesium Sulfate/Water 2 GM in Premix Bag 1 BAG IV ONE (09:58)
== END 2023-02-19 15:12 | disposition home or self-care (01) ==
LOC: JP.ED 08:22
DX: E86.0 Dehydration (principal); E83.42 Hypomagnesemia; R19.7 Diarrhea, unspecified; Z88.5 Allergy status to narcotic agent; E11.9 Type 2 diabetes mellitus without complications; E66.9 Obesity, unspecified; Z68.25 Body mass index [BMI] 25.0-25.9, adult; Z20.822 Contact with and (suspected) exposure to COVID-19
CPT/HCPCS: 0241U; 36415; 80053; 81001; 82009; 82803; 83735; 85025; 87046; 87493; 87899; 89055; 96361; 96365; 96366; 99284; J3475; J7030

== ENCOUNTER 2024-07-21 01:50 | Inpatient (IN) | payer MEDICARE ==
[2024-07-21 03:05] LABS: BASOPHILS PERCENT AUTO 0.3 % (0.1-1.3); EOSINOPHILS PERCENT AUTO 0.1 % (0.0-5.4); HEMATOCRIT 33.4 % (38.4-49.7); HEMOGLOBIN 11.6 g/dL (12.9-16.9); IMMATURE GRAN PERCENT AUTO 0.3 % (0.0-0.7); LYMPHOCYTES ABSOLUTE AUTO 1.24 K/uL (0.8-3.3); LYMPHOCYTES PERCENT AUTO 15.9 % (11.4-47.7); MEAN CORPUSCULAR HGB CONC 34.7 g/dL (31.6-35.5); MEAN CORPUSCULAR VOLUME 89.3 fL (81.4-99.0); MONOCYTES ABSOLUTE AUTO 0.91 K/uL (0.20-0.90); MONOCYTES PERCENT AUTO 11.7 % (3.3-12.6); NEUTROPHILS ABSOLUTE AUTO 5.59 K/uL (1.0-7.6); NEUTROPHILS PERCENT AUTO 71.7 % (40.0-78.1); PLATELET COUNT,PLT 106 K/uL (130-375); RED BLOOD CELL COUNT 3.74 M/uL (4.14-5.76); WHITE BLOOD CELL COUNT,WBC 7.8 K/uL (3.2-11.0)
[2024-07-21 03:14] LABS: CALCIUM 8.8 mg/dL (8.5-10.1); CREATININE 1.3 mg/dL (0.8-1.3); EST CRCL DRUG DOSING (CG) 58.9 mL/min
[2024-07-21 03:16] LABS: BASOPHILS ABSOLUTE AUTO 0.02 K/uL (0.00-0.10); EOSINOPHILS ABSOLUTE AUTO 0.01 K/uL (0.00-0.40); IMMATURE GRAN ABSOLUTE AUTO 0.02 K/uL (0.00-0.23)
[2024-07-21] MEDS: Sodium Chloride 0.9% 1,000 ML IV SCH (05:44)
[2024-07-21] MEDS: Acetaminophen 325 MG Tab PO ONE (08:24)
[2024-07-21] MEDS ORDERED: Ondansetron 4 MG/2 ML SDV IV PRN (10:06)
[2024-07-21] MEDS ORDERED: oxyCODONE 5 MG Tab PO PRN (10:06)
[2024-07-21] MEDS ORDERED: Ondansetron 4 MG Tab.DIS PO PRN (10:06)
[2024-07-21] MEDS ORDERED: Magnesium Hydroxide 400 MG/5 ML Susp 30 ML Cup PO PRN (10:06)
[2024-07-21] MEDS ORDERED: Propofol 200 MG/20 ML SDV ONE (10:45)
[2024-07-21] MEDS: Lactated Ringers 1,000 ML IV SCH (10:45)
[2024-07-21] MEDS ORDERED: ceFAZolin 1 GM Vial ONE (12:08)
[2024-07-21] MEDS: Lidocaine 1% with EPINEPHrine 1:100,000 50 ML MDV ONE (12:09)
[2024-07-21] MEDS: Bupivacaine 0.5% 50 ML MDV ONE (12:09)
[2024-07-21] MEDS: Levothyroxine 50 MCG Tab PO SCH (13:26)
[2024-07-21] MEDS: Carbidopa/Levodopa 25-100 MG Tab PO SCH (13:27)
[2024-07-21] MEDS: Amiodarone 200 MG Tab PO SCH (13:27)
[2024-07-21] MEDS: Acetaminophen 500 MG Tab PO SCH (13:31)
[2024-07-21] MEDS: Tacrolimus 0.5 MG Cap PO SCH ×2 (16:24→20:13)
[2024-07-21] MEDS: Mycophenolate Mofetil 250 MG Cap PO SCH ×2 (16:24→20:14)
[2024-07-21] MEDS: Sennosides/Docusate Sodium 50-8.6 MG Tab PO SCH (20:15)
[2024-07-21] MEDS: traZODone 50 MG Tab PO SCH (20:20)
[2024-07-22 05:54] LABS: HEMATOCRIT 26.1 % (38.4-49.7); MEAN CORPUSCULAR HEMOGLOBIN 30.8 pg (31.6-35.5); MEAN CORPUSCULAR HGB CONC 34.5 g/dL (31.6-35.5); MEAN CORPUSCULAR VOLUME 89.4 fL (81.4-99.0); RED BLOOD CELL COUNT 2.92 M/uL (4.14-5.76); WHITE BLOOD CELL COUNT,WBC 5.3 K/uL (3.2-11.0)
[2024-07-22 06:20] LABS: CALCIUM 8.5 mg/dL (8.5-10.1); CREATININE 1.3 mg/dL (0.8-1.3); EST CRCL DRUG DOSING (CG) 59.75 mL/min; POTASSIUM,K 3.9 mmol/L (3.6-5.2)
[2024-07-22 06:49] LABS: ANION GAP 2.9 mmol/L (5.0-14.0)
[2024-07-22] MEDS ORDERED: GLIPIZIDE PO SCH (08:00)
[2024-07-22] MEDS: Pantoprazole 40 MG Tab.CR PO SCH (08:18)
[2024-07-22] MEDS: Polyethylene Glycol 3350 Powder 17 GM Packet PO SCH (08:19)
[2024-07-22] MEDS ORDERED: glipiZIDE 2.5 MG Tab.ER PO SCH (09:00)
[2024-07-22] MEDS: GLIPIZIDE PO SCH (21:32)
[2024-07-23] MEDS: Levothyroxine 50 MCG Tab PO SCH (05:39)
[2024-07-23 05:55] LABS: BASOPHILS PERCENT AUTO 0.1 % (0.1-1.3); EOSINOPHILS ABSOLUTE AUTO 0.03 K/uL (0.00-0.40); EOSINOPHILS PERCENT AUTO 0.4 % (0.0-5.4); HEMATOCRIT 26.2 % (38.4-49.7); IMMATURE GRAN PERCENT AUTO 0.2 % (0.0-0.7); LYMPHOCYTES ABSOLUTE AUTO 5.03 K/uL (0.8-3.3); LYMPHOCYTES PERCENT AUTO 59.2 % (11.4-47.7); MEAN CORPUSCULAR HGB CONC 34.4 g/dL (31.6-35.5); MEAN CORPUSCULAR VOLUME 90.3 fL (81.4-99.0); MONOCYTES PERCENT AUTO 8.2 % (3.3-12.6); NEUTROPHILS ABSOLUTE AUTO 2.71 K/uL (1.0-7.6); NEUTROPHILS PERCENT AUTO 31.9 % (40.0-78.1); PLATELET COUNT,PLT 97 K/uL (130-375); WHITE BLOOD CELL COUNT,WBC 8.5 K/uL (3.2-11.0)
[2024-07-23 06:01] LABS: BASOPHILS ABSOLUTE AUTO 0.01 K/uL (0.00-0.10); IMMATURE GRAN ABSOLUTE AUTO 0.02 K/uL (0.00-0.23)
[2024-07-23 06:15] LABS: A/G RATIO 0.9 (1.2-2.2); ALANINE AMINOTRANSFERASE,ALT 7 U/L (12-78); ALBUMIN 2.7 g/dL (3.4-5.0); ALKALINE PHOSPHATASE 62 U/L (46-116); ANION GAP 6.3 mmol/L (5.0-14.0); ASPARTATE AMNIOTRANSFERASE,AST 20 U/L (15-37); BILIRUBIN TOTAL 0.6 mg/dL (0.2-1.0); BLOOD UREA NITROGEN,BUN 15 mg/dL (7-18); CALCIUM 8.8 mg/dL (8.5-10.1); CARBON DIOXIDE,CO2 29 mmol/L (21-32); CHLORIDE,CL 105 mmol/L (100-108); CREATININE 1.3 mg/dL (0.8-1.3); EST CRCL DRUG DOSING (CG) 59.75 mL/min; ESTIMATED GFR 59 mL/min (>60); GLUCOSE RANDOM 149 mg/dL (74-106); POTASSIUM,K 4.2 mmol/L (3.6-5.2); PROTEIN TOTAL,TP 5.7 g/dL (6.4-8.2); SODIUM,NA 140 mmol/L (140-148)
[2024-07-23] MEDS: Amiodarone 200 MG Tab PO SCH (08:36)
[2024-07-24 05:29] LABS: BASOPHILS PERCENT AUTO 0.2 % (0.1-1.3); EOSINOPHILS ABSOLUTE AUTO 0.03 K/uL (0.00-0.40); EOSINOPHILS PERCENT AUTO 0.7 % (0.0-5.4); HEMATOCRIT 23.8 % (38.4-49.7); HEMOGLOBIN 8.1 g/dL (12.9-16.9); IMMATURE GRAN PERCENT AUTO 0.2 % (0.0-0.7); LYMPHOCYTES ABSOLUTE AUTO 1.69 K/uL (0.8-3.3); LYMPHOCYTES PERCENT AUTO 39.9 % (11.4-47.7); MEAN CORPUSCULAR HEMOGLOBIN 30.6 pg (31.6-35.5); MEAN CORPUSCULAR VOLUME 89.8 fL (81.4-99.0); MONOCYTES ABSOLUTE AUTO 0.51 K/uL (0.20-0.90); NEUTROPHILS ABSOLUTE AUTO 1.99 K/uL (1.0-7.6); PLATELET COUNT,PLT 95 K/uL (130-375); RED BLOOD CELL COUNT 2.65 M/uL (4.14-5.76); WHITE BLOOD CELL COUNT,WBC 4.2 K/uL (3.2-11.0)
[2024-07-24 05:40] LABS: BASOPHILS ABSOLUTE AUTO 0.01 K/uL (0.00-0.10); IMMATURE GRAN ABSOLUTE AUTO 0.01 K/uL (0.00-0.23)
[2024-07-24 05:56] LABS: A/G RATIO 0.9 (1.2-2.2); ALANINE AMINOTRANSFERASE,ALT 7 U/L (12-78); ALBUMIN 2.5 g/dL (3.4-5.0); ALKALINE PHOSPHATASE 57 U/L (46-116); ANION GAP 7.9 mmol/L (5.0-14.0); ASPARTATE AMNIOTRANSFERASE,AST 19 U/L (15-37); BILIRUBIN TOTAL 0.9 mg/dL (0.2-1.0); BLOOD UREA NITROGEN,BUN 14 mg/dL (7-18); CALCIUM 8.4 mg/dL (8.5-10.1); CARBON DIOXIDE,CO2 27 mmol/L (21-32); CHLORIDE,CL 105 mmol/L (100-108); CREATININE 1.2 mg/dL (0.8-1.3); EST CRCL DRUG DOSING (CG) 64.73 mL/min; ESTIMATED GFR 65 mL/min (>60); GLUCOSE RANDOM 112 mg/dL (74-106); POTASSIUM,K 3.9 mmol/L (3.6-5.2); PROTEIN TOTAL,TP 5.4 g/dL (6.4-8.2); SODIUM,NA 140 mmol/L (140-148)
== END 2024-07-24 13:39 | disposition home health service (06) | DRG 605 ==
LOC: JP.ED 01:50 → JP.MS 09:23
PROVIDERS: ADMIT Internal Medicine; ATTEND Internal Medicine
PROC: 0HCKXZZ Extirpation of Matter from Right Lower Leg Skin, External Approach (ICD-10-PCS; 2024-07-21)
PROC: 0HCLXZZ Extirpation of Matter from Left Lower Leg Skin, External Approach (ICD-10-PCS; principal; 2024-07-21 12:00)
DX: S80.12XA Contusion of left lower leg, initial encounter (principal); Z94.0 Kidney transplant status; I11.0 Hypertensive heart disease with heart failure; S80.11XA Contusion of right lower leg, initial encounter; H91.90 Unspecified hearing loss, unspecified ear; E11.9 Type 2 diabetes mellitus without complications; E78.00 Pure hypercholesterolemia, unspecified; I50.9 Heart failure, unspecified; E66.9 Obesity, unspecified; E03.9 Hypothyroidism, unspecified; I25.10 Atherosclerotic heart disease of native coronary artery without angina pectoris; E11.42 Type 2 diabetes mellitus with diabetic polyneuropathy; I48.0 Paroxysmal atrial fibrillation; Z88.8 Allergy status to other drugs, medicaments and biological substances; E11.51 Type 2 diabetes mellitus with diabetic peripheral angiopathy without gangrene; G20.A1 Parkinson's disease without dyskinesia, without mention of fluctuations; V84.7XXA Person on outside of special agricultural vehicle injured in nontraffic accident, initial encounter; Z88.5 Allergy status to narcotic agent; Z88.6 Allergy status to analgesic agent; Z95.1 Presence of aortocoronary bypass graft; Z79.01 Long term (current) use of anticoagulants; Z79.84 Long term (current) use of oral hypoglycemic drugs; Z79.899 Other long term (current) drug therapy; Z98.49 Cataract extraction status, unspecified eye; Z79.890 Hormone replacement therapy; Z90.49 Acquired absence of other specified parts of digestive tract; Z96.659 Presence of unspecified artificial knee joint; Z96.619 Presence of unspecified artificial shoulder joint; Z98.890 Other specified postprocedural states; Z98.52 Vasectomy status; Z87.891 Personal history of nicotine dependence; W30.9XXA Contact with unspecified agricultural machinery, initial encounter; Z68.23 Body mass index [BMI] 23.0-23.9, adult
CPT/HCPCS: 36415; 70450; 72125; 73030 ×2; 73700; 76377; 80048; 82550; 84484; 85025; 85379; 86850; 86900; 86901; 93005; 99285; A9270; J7030; 00400-QZ; 75989; 80053; 82947; 85018; 85027; 97110-GP; 97162-GP; 97165-GO; 97530-GP; 99222; 99232; 99239; J0665; J0690; J2704; J7120; J7507

== ENCOUNTER 2024-07-28 14:46 | Emergency (ER) | payer MEDICARE | END 2024-07-28 15:22 | disposition left against medical advice (07) | LOC: JP.ED 14:46 | DX: Z53.21 Procedure and treatment not carried out due to patient leaving prior to being seen by health care provider (principal) ==